=== PATIENT | male | born 1970 | race Caucasian/White ===

== ENCOUNTER → 2016-11-29 | Outpatient (CLI) | payer BC ==
[~2016-11-29] MED LIST: GLYB25TA PO; INVO300T PO; KLON2TAB PO; LEXA1TAB2 PO; OMEP40CA2 PO; PHEN15CA58 PO
--- NOTE | 2016-11-30 07:09 | REP ---
KUB, TWO VIEWS: HISTORY: Abdominal pain. COMPARISON: 09/30/2010 A small amount of air is present in small and large intestine. There are no air fluid levels or dilated loops of intestine. There is no pneumoperitoneum. A mild amount of stool is present in the colon. IMPRESSION: Nonspecific bowel gas pattern. Signed by Juan Luis Noble MD 11/30/2016 08:14 A
== END ==
LOC: M WUC 11:58
PROVIDERS: ATTEND Nurse Practitioner Family
DX: M54.9 Dorsalgia, unspecified (principal)

== ENCOUNTER 2016-12-20 08:35 | Inpatient (IN) | payer BC ==
[~2016-12-20] VITALS: Ht 170.2 cm; Wt 135.5 kg
[2016-12-20] MEDS: ENOXAPARIN 40 MG/0.4 ML SYRINGE (J1650) SC SCH (09:00)
--- NOTE | 2016-12-20 09:10 | REP ---
Clinical: Acute cerebrovascular accident . Comparison: 07/10/2015 . Findings: The mediastinum and cardiac silhouette are stable and within normal limits for portable technique. The lung chen are clear without acute consolidation, effusion, or pneumothorax. Chronic changes at the left base remain stable. Skeletal structures are intact. Impression: Stable portable chest x-ray. No acute cardiopulmonary process appreciated. Signed by Isael Valadez MD 12/20/2016 09:02 A
--- NOTE | 2016-12-20 09:15 | REP ---
Clinical: Acute cerebrovascular accident. Comparison: 07/10/2015. Findings: The ventricles, sulci, and cisterns are normal in position and appearance. Griggs-white differentiation is maintained. No acute intracranial hemorrhage, mass/mass effect, pathology or trauma/injury. No evidence for acute infarction. No extra-axial fluid collection. Calvarium is intact. Paranasal sinuses and mastoid air cells are clear. A small contusion overlying the left vertex. Impression: No evidence for acute intracranial pathology or trauma/injury. Signed by Isael Valadez MD 12/20/2016 09:07 A
[2016-12-20] MEDS ORDERED: ASPIRIN 325 MG TAB As Ordered ONE (09:28)
[2016-12-20] MEDS ORDERED: MORPHINE 4 MG/ML 1ML SYRINGE As Ordered ONE (09:28)
[2016-12-20 09:31] LABS: BASO # 0.1 K/mm3 (0.0-0.2); BASO % 0.9 % (0.0-1.0); EOS # 0.4 K/mm3 (0.0-0.50); EOS % 4.6 % (0.0-3.0); LARGE UNSTAINED CELL # 0.2 K/mm3 (0.0-0.4); LARGE UNSTAINED CELL % 1.5 % (0.0-4.0); LYMPH # 1.7 K/mm3 (1.5-4.5); LYMPH % 16.1 % (24.0-44.0); MEAN CORPUSCULAR HEMOGLOBIN 28.2 pg (27.0-33.0); MEAN CORPUSCULAR HGB CONC 33.1 g/dl (32.0-36.5); MEAN CORPUSCULAR VOLUME 85.1 fl (80.0-96.0); MONO # 0.6 K/mm3 (0.0-0.8); MONO % 6.1 % (0.0-5.0); NEUTROPHILS # 6.9 K/mm3 (1.8-7.7); NEUTROPHILS % 70.8 % (36.0-66.0); PLATELET COUNT, AUTOMATED 197 k/mm3 (150-450); RED CELL DISTRIBUTION WIDTH 14.3 % (11.5-14.5); WHITE BLOOD COUNT 9.8 K/mm3 (4.0-10.0)
[2016-12-20 09:35] LABS: ANION GAP 7 MEQ/L (8-16); BLOOD UREA NITROGEN 12 MG/DL (7-18); CALCIUM LEVEL 8.9 MG/DL (8.5-10.1); CARBON DIOXIDE LEVEL 30 MEQ/L (21-32); CHLORIDE LEVEL 101 MEQ/L (98-107); CREATININE FOR GFR 1.13 MG/DL (0.70-1.30); GLOMERULAR FILTRATION RATE > 60.0 (>60); GLUCOSE, FASTING 309 MG/DL (70-105); SODIUM LEVEL 138 MEQ/L (136-145)
[2016-12-20 09:44] LABS: INR 0.89
[2016-12-20] MEDS ORDERED: SENN8.6T10 PO (10:54)
[2016-12-20] MEDS ORDERED: LANTINJ4 SC (10:54)
[2016-12-20] MEDS ORDERED: TRAM50TA2 PO (10:54)
[2016-12-20] MEDS ORDERED: IBUP200C PO (10:54)
[2016-12-20] MEDS ORDERED: TEST200I14 IM (10:54)
[2016-12-20] MEDS ORDERED: VITMTA PO (10:54)
[2016-12-20] MEDS ORDERED: ALBU17IN INH (10:54)
[2016-12-20] MEDS ORDERED: GLYB5TA PO (10:54)
[2016-12-20] MEDS ORDERED: SENO8.6T2 PO (10:54)
[2016-12-20] MEDS ORDERED: NEXI40CA PO (10:54)
[2016-12-20] MEDS ORDERED: FERR325T3 PO (10:54)
[2016-12-20] MEDS ORDERED: GLUCTAB6 PO (11:00)
--- NOTE | 2016-12-20 11:25 | REP ---
MRA BRAIN WITHOUT CONTRAST: HISTORY: Infarction. 3D [id number] MR angiography was performed at the level of the [place] of [place]. There is no aneurysm, arteriovenous malformation or atherosclerotic lesion. Major intracranial vessels are patent. The vertebral arteries are equal in size. IMPRESSION: Normal MRA brain. Signed by Juan Luis Noble MD 12/20/2016 11:28 A
--- NOTE | 2016-12-20 11:27 | REP ---
MRI BRAIN WITHOUT CONTRAST: HISTORY: Infarction. Comparison CT 12/20/2016. There are no areas of abnormal signal intensity in the brain. There is no intraparenchymal hemorrhage, infarct, mass or midline shift. The ventricular system is normal in appearance. There is no extracerebral collection. The sinuses are clear. IMPRESSION: There is no intracranial lesion. Signed by Juan Luis Noble MD 12/20/2016 11:28 A
[2016-12-20] MEDS ORDERED: ONDANSETRON 4MG/2ML VIAL (J2405) IV PRN (13:00)
[2016-12-20] MEDS ORDERED: traMADol 50 MG TAB PO PRN (13:00)
[2016-12-20] MEDS ORDERED: SENNA 8.6 MG TAB (SENOKOT) PO PRN (13:00)
[2016-12-20] MEDS ORDERED: ALBUTEROL 90 MCG/ACT 8GM HFA INHALER INH PRN (13:00)
[2016-12-20] MEDS ORDERED: traMADol 50 MG TAB As Ordered ONE (14:38)
[2016-12-20 15:00] VITALS: BP 131/72
--- NOTE | 2016-12-20 15:01 | HPE ---
DATE OF ADMISSION: 12/20/2016 PRIMARY CARE PROVIDER: WILBERTO Polanco CHIEF COMPLAINT: Left sided headache with facial droop. HISTORY OF PRESENT ILLNESS: The patient is a 46-year-old man who does have a history of headaches, but over the last five days has had persistent left sided headache, but in the frontal area, it is right behind his eye. It has been constant in nature. Does not come and go. At times it can get so severe that it becomes a stabbing pain. He denies photophobia, neck stiffness, fevers, chills, chest pain, shortness of breath, nausea, vomiting, or diarrhea. He tells me that for one hour yesterday he felt as though the left side of his face, specifically the left side of his mouth became heavy and he was having trouble with eating, but it did resolve in one hour. However, this morning at approximately 8:00 a.m. it returned once again where he noticed food dripping out of the left side of his mouth and he noticed difficult speaking. He did have some numbness and tingling of the left side of his face as well. At the time of my exam in the emergency room, he tells me that the numbness and tingling is completely gone. His headache is down from an 8 or 9 down to 3 or 4. He tells me that he feels as though his difficulty with speech and weakness in the mouth have almost resolved, but it is not quite back to normal as of yet. PAST MEDICAL HISTORY: Asthma. Diabetes. Depression/mood disorder. Gastroesophageal reflux disease (GERD). Iron deficiency anemia. ALLERGIES: 1. CT CONTRAST DYE - he gets hives and throat closing. 2. NIACIN. 3. ERYTHROMYCIN. HOME MEDICATIONS: - glyburide 10 mg daily - Ventolin HFA two puffs every 4 hours as needed shortness of breath - Lexapro 20 mg daily - Nexium 40 mg daily - ferrous sulfate 325 mg by mouth twice a day - ibuprofen 200 mg every 8 hours as needed for pain - Lantus 30 units at bedtime - multivitamin one tablet daily - senna-lax 8.6 mg by mouth at bedtime as needed for constipation. - Senokot 8.6 mg one tablet daily - tramadol 50 mg every 6 hours as needed for pain FAMILY HISTORY: His father of numerous hemorrhagic strokes which he believes started in his 70s. Also had any myocardial infarction in his 70s. Otherwise, noncontributory. PAST SURGICAL HISTORY: None. SOCIAL HISTORY: The patient smokes a pipe occasionally, but denies daily tobacco use. He has not had a drink of alcohol in six months. 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 REVIEW OF SYSTEMS: Negative other than history of present illness. PHYSICAL EXAMINATION: Blood pressure 135/76, pulse 75, respiratory rate 18, temperature 97.1, oxygen saturation 94% on room air. GENERAL: He is a morbidly obese man laying flat in the stretcher. He does not appear to be in any acute distress whatsoever. HEENT: Face has a very subtle softening of the left nasal labial fold. He has moist mucous membranes. Tongue is midline. Cranial nerves III through XII appear to be fairly intact. Otherwise, there is some left lower facial nerve weakness with an asymmetric smile. No elevation of CVP, but difficult to assess secondary to his large neck. CARDIOVASCULAR EXAM: S1 and S2 regular. RESPIRATORY EXAM: Clear. ABDOMINAL EXAM: Obese. EXTREMITIES: No clubbing, cyanosis, or edema. LABORATORY STUDIES: WBC 9.8, hemoglobin 16.9, hematocrit 51.2, platelet count 197. Chemistry panel: Sodium 138, potassium 4.0, chloride 101, bicarb 30, BUN 12, creatinine 1.1. INR 0.9. IMAGING: The patient did have a CT scan of the head which revealed no evidence of intracranial pathology, no trauma or injury. He also had a chest x-ray that was a stable portable chest x-ray. No acute cardiopulmonary process appreciated. ASSESSMENT/PLAN: This is a 46-year-old man with dysarthria and left sided facial droop associated with a five day headache. PROBLEMS: 1. Left sided facial and dysarthria. My suspicion is more for an atypical migraine and less for an acute CVA. Will get MRI, MRA and carotid duplex. Given that the patient does have a headache, what I feel is more likely that this is an atypical migraine. I will start the patient on Excedrin in addition to his home pain medications. I have spoken with Dr. Mann of neurology and asked him to evaluate the patient as well. If his MRI is negative, I do not feel strongly about checking an echocardiogram or completing further potential CVA workup unless recommended by neurology. Dr. Mcdonough reportedly used telemedicine and spoke with the stroke attending at [facility], Dr. Sutherland who recommended no tPA, but did recommend the MRI/MRA and recommended aspirin. As such, the patient will be on aspirin. I will check a morning lipid panel. Should it be abnormal consider initiation of statin therapy. 2. Type 2 diabetes. The patient will be on sliding scale insulin in addition to his Lantus. He will have a consistent carbohydrate diet. We will hold his glyburide. 3. Depression/anger problems. The patient is to continue on his Lexapro. 4. Gastroesophageal reflux disease (GERD). The patient is on Nexium. 5. Iron deficiency anemia. The patient is on ferrous sulfate, appears to be relatively mild. 6. Asthma/chronic obstructive pulmonary disease (COPD). Will continue the patient on as needed albuterol. 7. Morbid obesity complicating care. 8. Tobacco use is minimal, but cessation and counseling offered. 9. Deep vein thrombosis (DVT) prophylaxis. The patient will be on Lovenox. DISPOSITION: The patient is admitted to the progressive care unit for telemetry and neuro checks. Dr. Aquino's service will continue to follow the patient tomorrow at 7:00 a.m.
[2016-12-20 16:00] VITALS: BP 128/70
[2016-12-20] MEDS: EXCEDRIN MIGRAINE TABLET PO PRN (16:59)
--- NOTE | 2016-12-20 18:17 | ECGEPIP ---
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
[2016-12-20] MEDS ORDERED: predniSONE 20 MG TAB As Ordered ONE (20:44)
[2016-12-20] MEDS: predniSONE 20 MG TAB PO SCH (20:46)
[2016-12-20 21:25] VITALS: BP 155/86
--- NOTE | 2016-12-20 21:25 | EDDOCDS ---
Physician Documentation [facility] Name: Petros Dickey Age: 46 yrs Sex: Male : 1970 Arrival Date: 12/20/2016 Time: 08:35 Bed 20 Private MD: Maurisio Arciniega NC Disposition: 12/20/16 10:07 Hospitalization ordered by Becky Peralta for Inpatient Admission. Preliminary diagnosis are Facial weakness, Speech disturbances, not elsewhere classified - Dysarthria. - Bed requested for PCU. - Status is Inpatient Admission. sls1 - Condition is Stable. - Problem is new. - Symptoms are unchanged. Historical: - Allergies: CT Dye; Niacin; Erythromycin; - Home Meds: 1. Albuterol Inhl 2 puffs prn 2. glyburide 10 mg Oral tab 1 tab once daily 3. Lexapro 20 mg Oral tab 1 tab once daily 4. Nexium 40 mg Oral cpDR 1 cap once daily 5. Testerone injection Q 10 days 6. Lantus 100 unit/mL Sub-Q soln 30 unit daily 7. glucosamine-chondroitin oral oral 2 tab daily - PMHx: Asthma; Diabetes - NIDDM: controlled; GERD; - PSHx: none; - Social history: Smoking status: Patient uses tobacco products, current some day smoker. No barriers to communication noted, The patient speaks fluent [place]ian, Speaks appropriately for age. - Family history: Not pertinent. - : The pt / caregiver states he / she is not on anticoagulants. Home medication list is obtained from the patient. - Exposure Risk Screening:: None identified. Vital Signs: 12/20 08:44 BP 150 / 87; Pulse 74; Resp 16; Pulse Ox 97% on R/A; Weight 136.08 kg / 300.01 lbs (R); mlb1 Height 5 ft. 7 in. (170.18 cm) (R); Pain 6/10; 08:51 Temp 97.1(O); jrd 09:17 BP 152 / 79 (auto/); js13 09:17 Pulse 78; Resp 16; Pulse Ox 95% on R/A; js13 09:32 BP 135 / 76 (auto/); js13 09:32 Pulse 75; Resp 18; Pulse Ox 94% on R/A; js13 10:40 BP 130 / 74 (auto/); js13 10:40 Pulse 83; Resp 16; Pulse Ox 95% on R/A; js13 10:45 BP 142 / 76 (auto/); js13 10:45 Pulse 77 MON; Resp 16; Pulse Ox 94% on R/A; js13 11:00 BP 140 / 75 (auto/); js13 11:00 Pulse 77 MON; Resp 16; Pulse Ox 95% on R/A; js13 11:15 BP 129 / 61 (auto/); js13 11:15 Pulse 81 MON; Resp 16; Pulse Ox 94% on R/A; js13 11:30 BP 114 / 64 (auto/); js13 11:30 Pulse 77 MON; Resp 16; Pulse Ox 94% on R/A; js13 11:45 BP 111 / 66 (auto/); js13 11:45 Pulse 77 MON; Resp 18; Pulse Ox 92% on R/A; js13 12:00 BP 121 / 70 (auto/); js13 12:00 Pulse 75 MON; Resp 16; Pulse Ox 93% on R/A; js13 12:15 BP 121 / 70 (auto/); js13 12:15 Pulse 73 MON; Resp 16; Pulse Ox 93% on R/A; js13 12:30 BP 131 / 74 (auto/); js13 12:30 Pulse 71 MON; Resp 16; Pulse Ox 94% on R/A; js13 12:45 BP 132 / 70 (auto/); js13 12:45 Pulse 72 MON; Resp 16; Pulse Ox 94% on R/A; js13 13:00 BP 137 / 76 (auto/); js13 13:00 Pulse 69 MON; Resp 16; Pulse Ox 93% on R/A; js13 13:15 BP 139 / 77 (auto/); js13 13:15 Pulse 78 MON; Resp 16; Pulse Ox 97% on R/A; js13 13:30 BP 123 / 55 (auto/); js13 13:30 Pulse 75 MON; Resp 16; Pulse Ox 94% on R/A; js13 13:45 BP 129 / 61 (auto/); js13 13:45 Pulse 79 MON; Resp 16; Pulse Ox 93% on R/A; js13 14:00 BP 129 / 59 (auto/); js13 14:00 Pulse 83 MON; Resp 16; Pulse Ox 94% on R/A; js13 14:15 BP 131 / 60 (auto/); js13 14:15 Pulse 82 MON; Resp 16; Pulse Ox 92% on R/A; js13 14:30 BP 126 / 60 (auto/); js13 14:30 Pulse 75 MON; Resp 16; Pulse Ox 93% on R/A; js13 14:45 BP 133 / 64 (auto/); js13 14:45 Pulse 78 MON; Resp 16; Pulse Ox 93% on R/A; js13 08:44 Body Mass Index 46.99 (136.08 kg, 170.18 cm) mlb1 MDM: 08:40 ECG WITH READING ER PHYS+CARDIAG ordered. EDMS 08:45 RN interventions must not delay CT ordered. br1 08:45 Heating Worker/Pulse Ox/q 15 min VS ordered. br1 08:45 IV Saline Lock ordered. br1 08:45 Neuro VS q 15 Minutes ordered. br1 08:45 Patient must be on CC stretcher and weighed via bed scale ordered. br1 08:45 Rhythm Strip to chart ordered. br1 08:45 Basic Metabolic Profile Ordered. EDMS 08:45 CBC with Diff Ordered. EDMS 08:45 Partial Thromboplastin Time Ordered. EDMS 08:45 Prothrombin Time Profile\E\INR Ordered. EDMS 08:46 Chest, 1 View Ordered. EDMS 08:46 Type & Screen Ordered. EDMS 08:46 CT Head Without Contrast Ordered. EDMS 08:55 Consult [facility]: Telemedicine Stroke Attending ordered. br1 08:59 Financial registration complete. lg 09:02 [facility] Payment Agreement was scanned into [employer] and attached to record. lg 09:03 Consult [facility]: Telemedicine Stroke Attending complete. lbd 09:25 MRI Screening Tool - Place on chart, inform RN ordered. br1 09:26 Aspirin 325 mg PO once ordered. br1 09:26 -MRA-Brain without contrast Ordered. EDMS 09:26 -MRI-Brain without Ordered. EDMS 09:26 BED REQUEST+ADM ordered. EDMS 09:28 morphine 4 mg IVP once ordered. br1 09:28 MRI Screening Tool - Place on chart, inform RN complete. lbd 10:31 Basic Metabolic Profile Reviewed. br1 10:31 CBC with Diff Reviewed. br1 10:31 Prothrombin Time Profile\E\INR Reviewed. br1 10:31 Partial Thromboplastin Time Reviewed. br1 10:31 Type & Screen Reviewed. br1 10:31 CT Head Without Contrast Reviewed. br1 10:31 Chest, 1 View Reviewed. br1 10:58 Admission / Observation Status ordered. EDMS 12:52 Duplex,carotid (complete) Ordered. EDMS 12:53 CONSISTENT CARBOHYDRATES ordered. EDMS 13:32 T-Sheet-- Draft Copy was scanned into [employer] and attached to record. klr 14:31 THYROID STIMULATING HORMONE Ordered. EDMS 14:36 HEMOGLOBIN A1C Ordered. EDMS 19:31 CARDIAC RISK PROFILE Ordered. EDMS 19:31 BASIC METABOLIC PROFILE Ordered. EDMS 19:31 COMPLETE BLOOD COUNT Ordered. EDMS Administered Medications: 09:34 Drug: Aspirin 325 mg [aspirin 325 mg tablet (1 tabs)] Route: PO; js13 09:34 Drug: morphine 4 mg [morphine 4 mg/mL intravenous cartridge (1 mL)] Route: IVP; Site: [facility] right antecubital; Signatures: Dispatcher [employer] EDMS Millicent Brock, Patent Leather Sorter Unit lbd Rosalba RITTER, Kathy RN Myron Sal, Reg Reg lg Suraj Gunn RN RN mlb1 Isacc Mcdonough MD MD br1 Viviana Hernandez RN RN sls1 Kendal Najera,RN RN js13 Debbie Verdugo The chart was reviewed and I authenticate all verbal orders and agree with the evaluation and treatment provided.Corrections: (The following items were deleted from the chart) 09:38 08:45 Accucheck ordered. br1 js13 14:32 14:17 THYROID STIMULATING HORMONE ordered. EDMS EDMS 14:32 14:17 HEMOGLOBIN A1C ordered. EDMS EDMS 14:33 14:31 HEMOGLOBIN A1C ordered. EDMS EDMS Attachments: 09:02 [facility] Payment Agreement lg 13:32 T-Sheet-- Draft Copy klr MTDD
--- NOTE | 2016-12-20 21:25 | EDDOCDS ---
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 The last date and time the patient was known to be well was was at 08:00 on December 20, 2016. An acute neurological deficit is present. The charge nurse has been notified. The patient has been moved to a treatment area. Pre-hospital glucose is not applicable to this patient. Adult Sepsis Screening: The patient does not have new or worsening altered mentation. Patient's respiratory rate is less than 22. Systolic blood pressure is greater than 100. Patient has a qSOFA score of 0- Negative Sepsis Screen. Suicide/Homicide risk assessment- the patient denies having any suicidal and/or homicidal ideations and does not present with any other emotional, behavioral or mental health complaints. Status: Patient is not a service coordinator elderly facility or dependent. Transition of care: patient was not received from another setting of care. 08:40 Acuity: SUSIE Level 2 mlb1 08:40 Method Of Arrival: Walkin/Carried/Asstd mlb1 Triage Assessment: 08:44 The onset of the patients symptoms was less than three hours ago. General: Appears mlb1 distressed, Behavior is cooperative. Pain: Location: head Pain currently is 6 out of 10 on a pain scale. Neurological: Level of Consciousness is awake, alert, Speech is slurred, Facial droop on left, Reports headache. Historical: - Allergies: CT Dye; Niacin; Erythromycin; - Home Meds: 1. Albuterol Inhl 2 puffs prn 2. glyburide 10 mg Oral tab 1 tab once daily 3. Lexapro 20 mg Oral tab 1 tab once daily 4. Nexium 40 mg Oral cpDR 1 cap once daily 5. Testerone injection Q 10 days 6. Lantus 100 unit/mL Sub-Q soln 30 unit daily 7. glucosamine-chondroitin oral oral 2 tab daily - PMHx: Asthma; Diabetes - NIDDM: controlled; GERD; - PSHx: none; - Social history: Smoking status: Patient uses tobacco products, current some day smoker. No barriers to communication noted, The patient speaks fluent Sinhala, Speaks appropriately for age. - Family history: Not pertinent. - : The pt / caregiver states he / she is not on anticoagulants. Home medication list is obtained from the patient. - Exposure Risk Screening:: None identified. Screenin:33 Screening information is obtained from the patient. Fall risk: No risks identified. js13 Assistance ADL's: requires no assistance with activities of daily living. Abuse/DV Screen: The patient / caregiver reports he/she is: not in a situation that causes fear, pain or injury. Nutritional screening: No deficits noted. Advance Directives: There is no active DNR order. home support is adequate. Assessment: 09:30 General: Appears in no apparent distress, Behavior is appropriate for age, cooperative. js13 Pain: Location: head. Neurological: Level of Consciousness is awake, alert, Oriented to person, place, time, Resp Therapist are equal bilaterally Moves all extremities. Speech is normal, Facial droop on left, Facial symmetry: tongue is midline, Pupils are PERRLA. Cardiovascular: Rhythm is sinus rhythm Chest pain is denied. Respiratory: Airway is patent Respiratory effort is even, unlabored, Respiratory pattern is regular, symmetrical, Breath sounds are clear. Derm: Skin is pink, warm & dry. 10:45 General: Appears in no apparent distress, comfortable, Behavior is appropriate for age, js13 cooperative. Neurological: Level of Consciousness is awake, alert, obeys commands, Oriented to person, place, time, Resp Therapist are equal bilaterally Moves all extremities. Speech is normal, Facial droop on left, Facial symmetry: tongue is midline, Pupils are PERRLA. Cardiovascular: Rhythm is sinus rhythm Chest pain is denied. Respiratory: Airway is patent Respiratory effort is even, unlabored, Respiratory pattern is regular, symmetrical. Derm: Skin is pink, warm & dry. 11:49 Adult Sepsis Screening: The patient does not have new or worsening altered mentation. js13 Patient's respiratory rate is less than 22. Systolic blood pressure is greater than 100. Patient has a qSOFA score of 0- Negative Sepsis Screen. General: Appears in no apparent distress, comfortable, Behavior is appropriate for age, cooperative. Pain: Location: head. Neurological: Level of Consciousness is awake, alert, obeys commands, Oriented to person, place, time, Resp Therapist are equal bilaterally Moves all extremities. Speech is normal, Facial symmetry: tongue is midline, Facial droop is lessening and sensation is returning to normal. Pupils are PERRLA. Cardiovascular: Rhythm is sinus rhythm Chest pain is denied. Respiratory: Airway is patent Respiratory effort is even, unlabored, Respiratory pattern is regular, symmetrical. Derm: Skin is pink, warm & dry. 12:36 General: Appears in no apparent distress, comfortable, Behavior is appropriate for age, js13 cooperative. Pain: Denies pain. Neurological: Level of Consciousness is awake, alert, obeys commands, Oriented to person, place, time, Resp Therapist are equal bilaterally Moves all extremities. Speech is normal, Facial symmetry appears normal, Facial symmetry: tongue is midline, Pupils are PERRLA. Respiratory: Airway is patent Respiratory effort is even, unlabored, Respiratory pattern is regular, symmetrical. Derm: Skin is pink, warm & dry. 13:38 General: Pt calls out stating that his headache is worse than previous and his lip is hs1 becoming numb again. Patient states pain is 8/10 stabbing over left eye in forehead and radiates into eye.. Neurological: Level of Consciousness is awake, alert, obeys commands, Oriented to person, place, time. Respiratory: Airway is patent Respiratory effort is even, unlabored, Respiratory pattern is regular, symmetrical. Derm: Skin is pink, warm & dry. normal. 14:23 Adult Sepsis Screening: The patient does not have new or worsening altered mentation. js13 Patient's respiratory rate is less than 22. Systolic blood pressure is greater than 100. Patient has a qSOFA score of 0- Negative Sepsis Screen. General: Appears in no apparent distress, comfortable, Behavior is appropriate for age, cooperative. Pain: Denies pain. Neurological: Level of Consciousness is awake, alert, obeys commands, Oriented to person, place, time, Resp Therapist are equal bilaterally Moves all extremities. Speech is normal, Facial symmetry appears normal, Facial symmetry: tongue is midline, Pupils are PERRLA. Cardiovascular: Rhythm is sinus rhythm Chest pain is denied. Respiratory: Airway is patent Respiratory effort is even, unlabored, Respiratory pattern is regular, symmetrical. Derm: Skin is pink, warm & dry. Vital Signs: 08:44 BP 150 / 87; Pulse 74; Resp 16; Pulse Ox 97% on R/A; Weight 136.08 kg (R); Height 5 ft. mlb1 7 in. (170.18 cm) (R); Pain 6/10; 08:51 Temp 97.1(O); jrd 09:17 BP 152 / 79 (auto/); js13 09:17 Pulse 78; Resp 16; Pulse Ox 95% on R/A; js13 09:32 BP 135 / 76 (auto/); js13 09:32 Pulse 75; Resp 18; Pulse Ox 94% on R/A; js13 10:40 BP 130 / 74 (auto/); js13 10:40 Pulse 83; Resp 16; Pulse Ox 95% on R/A; js13 10:45 BP 142 / 76 (auto/); js13 10:45 Pulse 77 MON; Resp 16; Pulse Ox 94% on R/A; js13 11:00 BP 140 / 75 (auto/); js13 11:00 Pulse 77 MON; Resp 16; Pulse Ox 95% on R/A; js13 11:15 BP 129 / 61 (auto/); js13 11:15 Pulse 81 MON; Resp 16; Pulse Ox 94% on R/A; js13 11:30 BP 114 / 64 (auto/); js13 11:30 Pulse 77 MON; Resp 16; Pulse Ox 94% on R/A; js13 11:45 BP 111 / 66 (auto/); js13 11:45 Pulse 77 MON; Resp 18; Pulse Ox 92% on R/A; js13 12:00 BP 121 / 70 (auto/); js13 12:00 Pulse 75 MON; Resp 16; Pulse Ox 93% on R/A; js13 12:15 BP 121 / 70 (auto/); js13 12:15 Pulse 73 MON; Resp 16; Pulse Ox 93% on R/A; js13 12:30 BP 131 / 74 (auto/); js13 12:30 Pulse 71 MON; Resp 16; Pulse Ox 94% on R/A; js13 12:45 BP 132 / 70 (auto/); js13 12:45 Pulse 72 MON; Resp 16; Pulse Ox 94% on R/A; js13 13:00 BP 137 / 76 (auto/); js13 13:00 Pulse 69 MON; Resp 16; Pulse Ox 93% on R/A; js13 13:15 BP 139 / 77 (auto/); js13 13:15 Pulse 78 MON; Resp 16; Pulse Ox 97% on R/A; js13 13:30 BP 123 / 55 (auto/); js13 13:30 Pulse 75 MON; Resp 16; Pulse Ox 94% on R/A; js13 13:45 BP 129 / 61 (auto/); js13 13:45 Pulse 79 MON; Resp 16; Pulse Ox 93% on R/A; js13 14:00 BP 129 / 59 (auto/); js13 14:00 Pulse 83 MON; Resp 16; Pulse Ox 94% on R/A; js13 14:15 BP 131 / 60 (auto/); js13 14:15 Pulse 82 MON; Resp 16; Pulse Ox 92% on R/A; js13 14:30 BP 126 / 60 (auto/); js13 14:30 Pulse 75 MON; Resp 16; Pulse Ox 93% on R/A; js13 14:45 BP 133 / 64 (auto/); js13 14:45 Pulse 78 MON; Resp 16; Pulse Ox 93% on R/A; js13 08:44 Body Mass Index 46.99 (136.08 kg, 170.18 cm) mlb1 ED Course: 08:36 Patient visited by Chris Pelayo. mm15 08:36 Maurisio Arciniega is Private Physician. mm15 08:36 Patient moved to Waiting mm15 08:38 Kendal Najera,MEET is Primary Nurse. mlb1 08:38 Patient moved to 2 mlb1 08:40 Patient visited by Suraj Gunn, MEET. mlb1 08:41 Triage Initiated mlb1 08:44 Kehinde Mcdonough MD is Attending Physician. br1 08:48 EKG done. (by ED staff). Reviewed by Kehnide Mcdonough MD. jrd 08:49 Patient visited by Suraj Gunn, RN. mlb1 08:51 Patient visited by Barry Martinez PCA. jrd 08:53 Patient visited by Kehinde Mcdonough MD. br1 08:59 Basic Metabolic Profile Sent. js13 08:59 CBC with Diff Sent. js13 08:59 Inserted saline lock: 18 gauge in right antecubital area and blood collected. The js13 patient tolerated the procedure well. by ginger DSOUZA. 09:00 Partial Thromboplastin Time Sent. js13 09:00 Prothrombin Time Profile\E\INR Sent. js13 09:00 Type & Screen Sent. js13 09:02 [facility] Payment Agreement was scanned into [employer] and attached to record. lg 09:32 No procedures done that require assistance. js13 09:33 Patient visited by Kendal Najera RN. js13 09:33 The patient / caregiver is instructed regarding the plan of care and ED course. Cardiac js13 monitor on. Pulse ox on. NIBP on. 09:33 Chest, 1 View Returned. EDMS 09:33 CT Head Without Contrast Returned. EDMS 09:34 Patient visited by Kendal Najera RN. js13 09:45 Patient moved to MRI js13 09:54 Becky Peralta rating specialist. nq 10:07 Becky Peralta is Hospitalizing Provider. br1 10:45 Patient moved to 2 js13 10:47 Patient visited by Kendal Najera RN. js13 11:29 -MRA-Brain without contrast Returned. EDMS 11:29 -MRI-Brain without Returned. EDMS 11:51 Patient visited by Kendal Najera RN. js13 12:36 Patient visited by Kendal Najera RN. js13 13:32 T-Sheet-- Draft Copy was scanned into [employer] and attached to record. klr 14:26 Patient visited by Kendal Najera RN. js13 14:51 Patient moved to 20 mcp 18:31 Patient moved to Ultrasound hgl 18:37 Patient moved to 20 hgl 19:02 EKG-ADULT Returned. EDMS 19:22 Primary Nurse role handed off by Kednal Najera RN kb5 20:08 Patient moved to Ultrasound br3 20:29 Patient moved to 20 br3 Administered Medications: 09:34 Drug: Aspirin 325 mg [aspirin 325 mg tablet (1 tabs)] Route: PO; js13 09:34 Drug: morphine 4 mg [morphine 4 mg/mL intravenous cartridge (1 mL)] Route: IVP; Site: [facility] right antecubital; Order Results: Lab Order: Basic Metabolic Profile; SPEC'M 15/17 08:56 Test: GLUCOSE, FASTING; Value: 309; Range: 70-105; Abnormal: Above high normal; Units: MG/DL; Status: F Test: BLOOD UREA NITROGEN; Value: 12; Range: 7-18; Units: MG/DL; Status: F Test: CREATININE FOR GFR; Value: 1.13; Range: 0.70-1.30; Units: MG/DL; Status: F Test: GLOMERULAR FILTRATION RATE; Value: > 60.0; Range: >60; Status: F Test: SODIUM LEVEL; Value: 138; Range: 136-145; Units: MEQ/L; Status: F Test: POTASSIUM SERUM; Value: 4.0; Range: 3.5-5.1; Units: MEQ/L; Status: F Test: CHLORIDE LEVEL; Value: 101; Range: 98-107; Units: MEQ/L; Status: F Test: CARBON DIOXIDE LEVEL; Value: 30; Range: 21-32; Units: MEQ/L; Status: F Test: ANION GAP; Value: 7; Range: 8-16; Abnormal: Below low normal; Units: MEQ/L; Status: F Test: CALCIUM LEVEL; Value: 8.9; Range: 8.5-10.1; Units: MG/DL; Status: F Test Note: ; Units are mL/min/1.73 m2 Chronic Kidney Disease Staging per NKF: Stage I & II GFR >=60 Normal to Mildly Decreased Stage III GFR 30-59 Moderately Decreased Stage IV GFR 15-29 Severely Decreased Stage V GFR <15 Very Little GFR Left ESRD GFR <15 on TRAFFIC WORKER Lab Order: CBC with Diff; SPEC'M 12/20/16 08:56 Test: WHITE BLOOD COUNT; Value: 9.8; Range: 4.0-10.0; Units: K/mm3; Status: F Test: RED BLOOD COUNT; Value: 6.02; Range: 4.30-6.10; Units: M/mm3; Status: F Test: HEMOGLOBIN; Value: 16.9; Range: 14.0-18.0; Units: g/dl; Status: F Test: HEMATOCRIT; Value: 51.2; Range: 42.0-52.0; Units: %; Status: F Test: MEAN CORPUSCULAR VOLUME; Value: 85.1; Range: 80.0-96.0; Units: fl; Status: F Test: MEAN CORPUSCULAR HEMOGLOBIN; Value: 28.2; Range: 27.0-33.0; Units: pg; Status: F Test: MEAN CORPUSCULAR HGB CONC; Value: 33.1; Range: 32.0-36.5; Units: g/dl; Status: F Test: RED CELL DISTRIBUTION WIDTH; Value: 14.3; Range: 11.5-14.5; Units: %; Status: F Test: PLATELET COUNT, AUTOMATED; Value: 197; Range: 150-450; Units: k/mm3; Status: F Test: NEUTROPHILS %; Value: 70.8; Range: 36.0-66.0; Abnormal: Above high normal; Units: %; Status: F Test: LYMPH %; Value: 16.1; Range: 24.0-44.0; Abnormal: Below low normal; Units: %; Status: F Test: MONO %; Value: 6.1; Range: 0.0-5.0; Abnormal: Above high normal; Units: %; Status: F Test: EOS %; Value: 4.6; Range: 0.0-3.0; Abnormal: Above high normal; Units: %; Status: F Test: BASO %; Value: 0.9; Range: 0.0-1.0; Units: %; Status: F Test: LARGE UNSTAINED CELL %; Value: 1.5; Range: 0.0-4.0; Units: %; Status: F Test: NEUTROPHILS #; Value: 6.9; Range: 1.8-7.7; Units: K/mm3; Status: F Test: LYMPH #; Value: 1.7; Range: 1.5-4.5; Units: K/mm3; Status: F Test: MONO #; Value: 0.6; Range: 0.0-0.8; Units: K/mm3; Status: F Test: EOS #; Value: 0.4; Range: 0.0-0.50; Units: K/mm3; Status: F Test: BASO #; Value: 0.1; Range: 0.0-0.2; Units: K/mm3; Status: F Test: LARGE UNSTAINED CELL #; Value: 0.2; Range: 0.0-0.4; Units: K/mm3; Status: F Lab Order: Partial Thromboplastin Time; 12/20/16 08:56 Test: PARTIAL THROMBOPLASTIN TIME; Value: 34.3; Range: 26.6-37.1; Units: SECONDS; Status: F Lab Order: Prothrombin Time Profile\E\INR; 12/20/16 08:56 Test: PROTHROMBIN TIME; Value: 12.2; Range: 12.3-14.5; Abnormal: Below low normal; Units: SECONDS; Status: F Test: INR; Value: 0.89; Status: F Test Note: ; THERAPUTIC HUMAN INR VALUES INDICATIONS NORMAL RANGES PROPHYLAXIS/TREATMENT OF: VENOUS THROMBOSIS 2.0-3.0 PULMONARY EMBOLISM 2.0-3.0 PREVENTION OF SYSTEMIC EMBOLISM FROM: TISSUE HEART VALVES 2.0-3.0 ACUTE MYOCARDIAL INFARCTION 2.0-3.0 VALVULAR HEART DISEASE 2.0-3.0 ATRIAL FIBRILLATION 2.0-3.0 MECHANICAL VALVES(HIGH RISK) 2.5-3.5 RECURRENT MYOCARDIAL INFARCTION 2.5-3.5 Lab Order: Type & Screen; 12/20/16 08:56 Test: BLOOD TYPE; Value: B NEG; Status: F Test: AB SCREEN (INDIRECT ALANNAH)VIS; Value: NEGATIVE; Status: F Lab Order: THYROID STIMULATING HORMONE; 12/20/16 08:56 Test: THYROID STIMULATING HORMONE; Value: 1.330; Range: 0.358-3.740; Units: uIU/ML; Status: F Lab Order: HEMOGLOBIN A1C; 12/20/16 08:56 Test: HEMOGLOBIN A1c; Value: 10.5; Range: 4.5-6.2; Abnormal: Above high normal; Units: %; Status: F Test: ESTIMATED AVERAGE GLUCOSE; Value: 255; Range: 60-110; Abnormal: Above high normal; Units: MG/DL; Status: F Radiology Order: EKG-ADULT Test: EKG-ADULT REASON FOR EXAMINATION: facial droop; Stationary ECG Study; [facility] - ED; ; Test Date: 2016-12-20; Pat Name: PETROS YEBOAH Department:; Room: -; Gender: M 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:; : 1970 Requested By: KEHINDE Kaur; Order Number: [id number] Reading MD: Sree Pena; Measurements; Intervals [place]; Rate: 69 P: 46; HI: 157 QRS: 78; QRSD: 122 T: 55; QT: 355; QTc: 382; Interpretive Statements; SINUS RHYTHM; MODERATE INTRAVENTRICULAR CONDUCTION DELAY; SIMILAR TO 07/10/15; Electronically Signed On 12-20-2016 18:17:24 EST by Sree Pena; Radiology Order: CT Head Without Contrast Test: CT Head Without Contrast REASON FOR EXAMINATION: CVA <4.5hrs; Clinical: Acute cerebrovascular accident.; ; Comparison: 07/10/2015.; ; Findings:; The ventricles, sulci, and cisterns are normal in position and appearance.; Griggs-white differentiation is maintained. No acute intracranial hemorrhage,; mass/mass effect, pathology or trauma/injury. No evidence for acute infarction.; No extra-axial fluid collection. Calvarium is intact. Paranasal sinuses and; mastoid air cells are clear. A small contusion overlying the left vertex.; ; Impression:; No evidence for acute intracranial pathology or trauma/injury.; ; ; Signed by; Isael Valadez MD 12/20/2016 09:07 A; Radiology Order: Chest, 1 View Test: Chest, 1 View REASON FOR EXAMINATION: CVA <4.5hrs; Clinical: Acute cerebrovascular accident .; ; Comparison: 07/10/2015 .; ; Findings:; The mediastinum and cardiac silhouette are stable and within normal limits for; portable technique. The lung chen are clear without acute consolidation,; effusion, or pneumothorax. Chronic changes at the left base remain stable.; Skeletal structures are intact.; ; Impression:; Stable portable chest x-ray. No acute cardiopulmonary process appreciated.; ; ; Signed by; Isael Valadez MD 12/20/2016 09:02 A; Radiology Order: -MRA-Brain without contrast Test: -MRA-Brain without contrast REASON FOR EXAMINATION: CVA <4.5hrs; MRA BRAIN WITHOUT CONTRAST:; ; HISTORY: Infarction.; ; 3D [id number] MR angiography was performed at the level of the [place] of; [place]. There is no aneurysm, arteriovenous malformation or atherosclerotic; lesion. Major intracranial vessels are patent. The vertebral arteries are equal; in size.; ; IMPRESSION:; ; Normal MRA brain.; ; ; Signed by; Juan Luis Noble MD 12/20/2016 11:28 A; Radiology Order: -MRI-Brain without Test: -MRI-Brain without REASON FOR EXAMINATION: CVA <4.5hrs; MRI BRAIN WITHOUT CONTRAST:; ; HISTORY: Infarction.; ; Comparison CT 12/20/2016.; ; There are no areas of abnormal signal intensity in the brain. There is no; intraparenchymal hemorrhage, infarct, mass or midline shift. The ventricular; system is normal in appearance. There is no extracerebral collection. The; sinuses are clear.; ; IMPRESSION:; ; There is no intracranial lesion.; ; ; Signed by; Juan Luis Noble MD 12/20/2016 11:28 A; Outcome: 10:07 Decision to Hospitalize by Provider. br1 21:24 Patient left the ED. sls1 Signatures: Dispatcher [employer] EDMS Lucia Allison, RN RN Myron Stark, Suraj Arteaga lg RN RN mlb1 Cristiano España, STUDENT ACCOUNTS COORDINATOR STUDENT ACCOUNTS COORDINATOR kb5 Kehinde Mcdonough MD MD br1 Stephanie Paez br3 Ginger Neal RN RN hs1 Viviana Hernandez RN RN sls1 Kendal Najera,RN RN js13 Victor Manuel Kwan Nazeel nq McGrath, Marlynn mm15 Barry Martniez, STUDENT ACCOUNTS COORDINATOR STUDENT ACCOUNTS COORDINATOR jrd Debbie Verdugo MTDD
[2016-12-20] MEDS: valACYclovir HCL 500 MG TAB PO SCH (22:17)
[2016-12-20] MEDS: FERROUS SULFATE 325MG TAB PO SCH (22:17)
[2016-12-20] MEDS: IBUPROFEN 800 MG TAB PO PRN (22:18)
[2016-12-20] MEDS: LEVEMIR (INSULIN DETEMIR) 1 UNITS/0.01ML SC SCH (22:25)
[2016-12-21] VITALS: BP 141/68
[2016-12-21] MEDS: EXCEDRIN MIGRAINE TABLET PO PRN (00:56)
[2016-12-21 04:00] VITALS: BP 123/61
[2016-12-21 06:17] LABS: MEAN CORPUSCULAR HGB CONC 32.5 g/dl (32.0-36.5); MEAN CORPUSCULAR VOLUME 86.1 fl (80.0-96.0); RED CELL DISTRIBUTION WIDTH 14.3 % (11.5-14.5); WHITE BLOOD COUNT 13.8 K/mm3 (4.0-10.0)
[2016-12-21 06:34] LABS: ANION GAP 10 MEQ/L (8-16); BLOOD UREA NITROGEN 17 MG/DL (7-18); CARBON DIOXIDE LEVEL 23 MEQ/L (21-32); CHLORIDE LEVEL 102 MEQ/L (98-107); CHOLESTEROL LEVEL 204 MG/DL (<200); CREATININE FOR GFR 1.07 MG/DL (0.70-1.30); GLOMERULAR FILTRATION RATE > 60.0 (>60); GLUCOSE, FASTING 341 MG/DL (70-105); POTASSIUM SERUM 4.5 MEQ/L (3.5-5.1); SODIUM LEVEL 135 MEQ/L (136-145); TRIGLYCERIDES LEVEL 322 MG/DL (<150)
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
[2016-12-21] MEDS ORDERED: GLUCAGON FOR INJ 1 MG VIAL (J1610) SC PRN (07:45)
[2016-12-21] MEDS ORDERED: GLUCOSE 4 GM CHEW TABLET PO PRN (07:45)
[2016-12-21] MEDS ORDERED: DEXTROSE 50% 50 ML SYRINGE IV PRN (07:45)
[2016-12-21 08:00] VITALS: BP 125/62
[2016-12-21] MEDS: HumaLOG INSULIN (NovoLOG) PER UNIT SC SCH ×3 (08:35→18:22)
[2016-12-21] MEDS: ENOXAPARIN 40 MG/0.4 ML SYRINGE (J1650) SC SCH (08:35)
[2016-12-21] MEDS: ESCITALOPRAM OXALATE 10 MG TAB (LEXAPRO) PO SCH (08:36)
[2016-12-21] MEDS: ASPIRIN 325 MG TAB PO SCH (08:36)
[2016-12-21] MEDS: PANTOPRAZOLE 40MG TAB (PROTONIX) PO SCH (08:36)
[2016-12-21] MEDS: SENOKOT S TAB PO SCH (08:36)
[2016-12-21] MEDS: FERROUS SULFATE 325MG TAB PO SCH ×2 (08:36→22:02)
[2016-12-21] MEDS: MULTIVITAMINS/MINERALS THERAP 1 TAB PO SCH (08:36)
[2016-12-21] MEDS: predniSONE 20 MG TAB PO SCH (08:37)
[2016-12-21] MEDS: valACYclovir HCL 500 MG TAB PO SCH ×2 (08:37→22:02)
--- NOTE | 2016-12-21 08:48 | REP ---
Clinical: Acute cerebrovascular accident. Technique: Griggs scale and color Doppler evaluation using linear high frequency transducer Findings: Two-dimensional griggs scale and color images demonstrate very minimal intimal thickening with otherwise normal arterial lumen and laminar flow. No areas of narrowing slash stenosis are appreciated. Color Doppler interrogation demonstrates normal arterial wave patterns and velocities with no significant spectral broadening. Normal flow direction is appreciated in the bilateral vertebral arteries. RIGHT (cm/s) LEFT (cm/s) ICA peak systolic velocity 63.6 59.6 ICA diastolic velocity 17.9 15.3 ECA peak systolic velocity 145.9 123.6 CCA peak systolic velocity 93.2 114.8 ICA/CCA ratio 0.68 0.52 Impression: No hemodynamically significant areas of narrowing or stenosis appreciated. Based on set standards narrowing falls within the normal range. Signed by Isael Valadez MD 12/21/2016 08:40 A
[2016-12-21 12:00] VITALS: BP 130/66
--- NOTE | 2016-12-21 14:44 | IPNPDOC ---
Date Seen The patient was seen on 12/21/16. Progress Note Hospitalist Progress Note Subjective: The patient states that he overall feels well Objective: Physical Exam: Vitals: Vital Sign - Last 24 Hours 12/20/16 12/20/16 12/20/16 12/21/16 15:00 16:00 21:25 00:00 Temp 97.8 97.7 96.8 95.3 Pulse 77 76 70 69 Resp 20 20 20 20 B/P 131/72 128/70 155/86 141/68 Pulse Ox 94 96 92 98 O2 Delivery Room Air Room Air Room Air NIPPV (BIPAP/CPAP) 12/21/16 12/21/16 12/21/16 04:00 08:00 12:00 Temp 95.1 95.6 96.0 Pulse 85 86 80 Resp 20 20 18 B/P 123/61 125/62 130/66 Pulse Ox 94 96 97 O2 Delivery NIPPV (BIPAP/CPAP) Room Air Room Air General: Awake, Alert, no acute distress HEENT: Atraumatic, left-sided facial droop CV: Regular rate and rhythm Lungs: Clear to auscultation bilaterally Abd: Soft, nontender, nondistended Extremities: No edema Neuro: Left facial droop, no deficits in any extremity Psych: Normal mood and affect Labs and Imaging: Laboratory Tests 12/21/16 05:34 Red Blood Count 6.16 H, Mean Corpuscular Volume 86.1, Mean Corpuscular Hemoglobin 28.0, Mean Corpuscular Hemoglobin Concent 32.5, Red Cell Distribution Width 14.3 Assessment and Plan: 46-year-old male with asthma, diabetes mellitus type 2, depression, GERD, iron deficiency anemia who presented with a left-sided headache as well as dysarthria and left facial droop. 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 1. Dysarthria and left facial droop: CT of the head, MRI/MRA of the brain, carotid ultrasound are all unremarkable. The patient has been seen by Dr. Mann of neurology, who suspects that this is a manifestation of Rodriguez's palsy, as well as intractable migraine headache with occipital neuralgia. Dr. Mann has started the patient on prednisone and valacyclovir. I spoken with Dr. Mann about potential discharge, but he would like the patient to complete the full CVA rule out workup. At this time, an echocardiogram is still pending. 2. Hyperlipidemia: In the course of a CVA workup, the patient was risk stratified with a fasting lipid panel, which does reveal significantly elevated cholesterol. We'll start the patient on a nightly statin. 3. Diabetes mellitus type 2: Sliding scale insulin while in-house. Currently holding home glyburide. Continue home Lantus 30 units daily at bedtime. 4. Asthma: The patient currently appears to be at his baseline. Continue as needed albuterol. 5. Pressure: Continue home Lexapro. 6. GERD: Continue home PPI. 7. Iron deficiency anemia: Continue home ferrous sulfate. Hemoglobin appears to be at baseline. 8. Leukocytosis: The patient's WBC was normal upon admission, but this morning it is 13.8. The patient is afebrile and clinically appears well. I suspect this is secondary to the prednisone that was started yesterday. We will monitor the patient closely. DVT prophylaxis: Lovenox Dispo: pending results of echocardiogram VS, I&O, 24H, [facility] Vital Signs/I&O Vital Signs Date Time Temp Pulse Resp B/P Pulse Ox O2 Delivery O2 Flow Rate FiO2 12/21/16 12:00 96.0 80 18 130/66 97 Room Air I&O- Last 24 Hours up to 6 AM 12/21/16 06:00 Intake Total 1600 ml Output Total 450 ml Balance 1150 ml Laboratory Data 24H LABS Laboratory Tests 2 12/20/16 22:24: Bedside Glucose (Misc Panel) 187H 12/21/16 05:34: Anion Gap 10, Calcium Level 9.0, Triglycerides Level 322H, Cholesterol Level 204H, HDL Cholesterol 23L, LDL Cholesterol 116.6H, Cholesterol/HDL Ratio 8.869H , Glomerular Filtration Rate > 60.0, Non-HDL Cholesterol (LDL + VLDL) 181 CBC/BMP Laboratory Tests 12/21/16 05:34 Red Blood Count 6.16 H, Mean Corpuscular Volume 86.1, Mean Corpuscular Hemoglobin 28.0, Mean Corpuscular Hemoglobin Concent 32.5, Red Cell Distribution Width 14.3 FARZAD VILLAVICENCIO Dec 21, 2016 14:44
[2016-12-21 16:00] VITALS: BP 138/77
[2016-12-21] MEDS: IBUPROFEN 800 MG TAB PO PRN (18:42)
[2016-12-21 20:00] VITALS: BP 160/74
--- NOTE | 2016-12-21 20:37 | ECHO ---
DATE OF PROCEDURE: 12/21/2016 AGE: 46 GENDER: Male HEIGHT: 67 inches WEIGHT: 302 pounds BODY SURFACE AREA: 2.41 m2 PATIENT LOCATION: Inpatient, PCU, room 3215 REFERRING PHYSICIAN: Colette Renteria MD INDICATIONS: Transient ischemic attack (TIA). 2-D MEASUREMENTS: RV: 2.4 cm LV: 4.2 cm Septum: 1.1 cm Posterior wall: 1.1 cm Aortic root: 3.2 cm LA: 3.6 cm LVEF: 65% DOPPLER MEASUREMENTS: AV: 1.5 m/s LVOT: 1.4 m/s LVOT diameter: 2.0 cm MV-E: 92, A: 66, EA ratio 1.4 Early mitral deceleration time: 148 ms PV: 0.8 m/s Pulmonary artery acceleration time: 137 ms RVSP: 26 mmHg IVC: 2.1 cm COMMENTS: Normal sinus rhythm without intraventricular conduction disturbance. Technically, extremely difficult study in light of the patient's body habitus, but diagnostically useful information was still obtained. Normal cardiac chamber sizes and left ventricle (LV) wall thickness. On real-time imaging from the parasternal and apical projections wall motion appeared to be symmetrical and hyperkinetic. Normal-appearing mitral valvular apparatus and leaflet excursion with no posterior systolic buckling. Three equal sized aortic cusps of normal thickness and cusp separation. Normal aortic root size. We are unable to detect any intracardiac mass, but as mentioned, this was a technically difficult study. No pericardial effusion. Color flow Doppler study taken from the parasternal and apical projection showed no aortic, trace mitral and trace tricuspid insufficiency (physiological findings). Guided continuous wave Doppler of his aortic valve showed a normal peak systolic velocity against LV outflow tract obstruction. Pulsed and continuous wave Doppler of his LV inflow tract taken from the apical four-chamber projection showed normal diastolic filling velocities against mitral stenosis. The filling pattern was also normal against LV diastolic dysfunction. Pulsed and continuous wave Doppler of his pulmonary trunk showed a normal peak systolic velocity against RV outflow tract obstruction. His pulmonary artery acceleration time was normal against an elevated pulmonary vascular resistance. Guided continuous wave Doppler of his tricuspid valve allowed our estimation of his right ventricular systolic pressure (upper limits of normal). His inferior vena cava was upper limits of normal with normal respiratory collapse against an elevated central venous pressure. CONCLUSIONS: Technically difficult study in light of the patient's body habitus. We could not detect an intracardiac mass. If cardiac source is seriously suspect we would recommend a transesophageal echocardiogram. Normal-appearing echocardiogram/Doppler study.
[2016-12-21] MEDS ORDERED: ATORVASTATIN 20 MG TAB PO SCH (21:00)
[2016-12-21] MEDS ORDERED: HumaLOG INSULIN (NovoLOG) PER UNIT SC SCH (21:00)
[2016-12-21] MEDS ORDERED: CALCIUM CARBONATE 500 MG CHEW U/D PO PRN (21:00)
[2016-12-21] MEDS: LEVEMIR (INSULIN DETEMIR) 1 UNITS/0.01ML SC SCH (22:03)
[2016-12-22] VITALS: BP 119/67
[2016-12-22 04:00] VITALS: BP 149/69
[2016-12-22 05:22] LABS: MEAN CORPUSCULAR HEMOGLOBIN 28.4 pg (27.0-33.0); MEAN CORPUSCULAR HGB CONC 33.4 g/dl (32.0-36.5); MEAN CORPUSCULAR VOLUME 84.8 fl (80.0-96.0); RED CELL DISTRIBUTION WIDTH 14.3 % (11.5-14.5); WHITE BLOOD COUNT 15.3 K/mm3 (4.0-10.0)
[2016-12-22 05:43] LABS: ANION GAP 11 MEQ/L (8-16); BLOOD UREA NITROGEN 21 MG/DL (7-18); CALCIUM LEVEL 9.1 MG/DL (8.5-10.1); CARBON DIOXIDE LEVEL 26 MEQ/L (21-32); CHLORIDE LEVEL 102 MEQ/L (98-107); GLOMERULAR FILTRATION RATE > 60.0 (>60); GLUCOSE, FASTING 268 MG/DL (70-105); POTASSIUM SERUM 3.6 MEQ/L (3.5-5.1); SODIUM LEVEL 139 MEQ/L (136-145)
[2016-12-22 08:00] VITALS: BP 115/59
[2016-12-22] MEDS: HumaLOG INSULIN (NovoLOG) PER UNIT SC SCH (08:23)
[2016-12-22] MEDS: valACYclovir HCL 500 MG TAB PO SCH (08:23)
[2016-12-22] MEDS: ESCITALOPRAM OXALATE 10 MG TAB (LEXAPRO) PO SCH (08:23)
[2016-12-22] MEDS: SENOKOT S TAB PO SCH (08:23)
[2016-12-22] MEDS: PANTOPRAZOLE 40MG TAB (PROTONIX) PO SCH (08:23)
[2016-12-22] MEDS: ASPIRIN 325 MG TAB PO SCH (08:23)
[2016-12-22] MEDS: MULTIVITAMINS/MINERALS THERAP 1 TAB PO SCH (08:23)
[2016-12-22] MEDS: FERROUS SULFATE 325MG TAB PO SCH (08:23)
[2016-12-22] MEDS: ENOXAPARIN 40 MG/0.4 ML SYRINGE (J1650) SC SCH (08:24)
[2016-12-22] MEDS ORDERED: PRED10TA FT (08:34)
[2016-12-22] MEDS ORDERED: ATOR1TAB21 PO (08:34)
[2016-12-22] MEDS ORDERED: VALA500T PO (08:34)
[2016-12-22] MEDS ORDERED: ASPI81TA85 PO (08:34)
[2016-12-22] MEDS ORDERED: predniSONE 50 MG TAB PO SCH (09:00)
--- NOTE | 2016-12-22 22:24 | EDDOCDS ---
Physician Documentation [facility] Name: Petros Dickey Age: 46 yrs Sex: Male : 1970 Arrival Date: 12/20/2016 Time: 08:35 Bed 20 Private MD: Maurisio Arciniega NC Disposition: 12/20/16 10:07 Hospitalization ordered by Becky Peralta for Inpatient Admission. Preliminary diagnosis are Facial weakness, Speech disturbances, not elsewhere classified - Dysarthria. - Bed requested for PCU. - Status is Inpatient Admission. sls1 - Condition is Stable. - Problem is new. - Symptoms are unchanged. Historical: - Allergies: CT Dye; Niacin; Erythromycin; - Home Meds: 1. Albuterol Inhl 2 puffs prn 2. glyburide 10 mg Oral tab 1 tab once daily 3. Lexapro 20 mg Oral tab 1 tab once daily 4. Nexium 40 mg Oral cpDR 1 cap once daily 5. Testerone injection Q 10 days 6. Lantus 100 unit/mL Sub-Q soln 30 unit daily 7. glucosamine-chondroitin oral oral 2 tab daily - PMHx: Asthma; Diabetes - NIDDM: controlled; GERD; - PSHx: none; - Social history: Smoking status: Patient uses tobacco products, current some day smoker. No barriers to communication noted, The patient speaks fluent [place], Speaks appropriately for age. - Family history: Not pertinent. - : The pt / caregiver states he / she is not on anticoagulants. Home medication list is obtained from the patient. - Exposure Risk Screening:: None identified. Vital Signs: 12/20 08:44 BP 150 / 87; Pulse 74; Resp 16; Pulse Ox 97% on R/A; Weight 136.08 kg / 300.01 lbs (R); mlb1 Height 5 ft. 7 in. (170.18 cm) (R); Pain 6/10; 08:51 Temp 97.1(O); jrd 09:17 BP 152 / 79 (auto/); js13 09:17 Pulse 78; Resp 16; Pulse Ox 95% on R/A; js13 09:32 BP 135 / 76 (auto/); js13 09:32 Pulse 75; Resp 18; Pulse Ox 94% on R/A; js13 10:40 BP 130 / 74 (auto/); js13 10:40 Pulse 83; Resp 16; Pulse Ox 95% on R/A; js13 10:45 BP 142 / 76 (auto/); js13 10:45 Pulse 77 MON; Resp 16; Pulse Ox 94% on R/A; js13 11:00 BP 140 / 75 (auto/); js13 11:00 Pulse 77 MON; Resp 16; Pulse Ox 95% on R/A; js13 11:15 BP 129 / 61 (auto/); js13 11:15 Pulse 81 MON; Resp 16; Pulse Ox 94% on R/A; js13 11:30 BP 114 / 64 (auto/); js13 11:30 Pulse 77 MON; Resp 16; Pulse Ox 94% on R/A; js13 11:45 BP 111 / 66 (auto/); js13 11:45 Pulse 77 MON; Resp 18; Pulse Ox 92% on R/A; js13 12:00 BP 121 / 70 (auto/); js13 12:00 Pulse 75 MON; Resp 16; Pulse Ox 93% on R/A; js13 12:15 BP 121 / 70 (auto/); js13 12:15 Pulse 73 MON; Resp 16; Pulse Ox 93% on R/A; js13 12:30 BP 131 / 74 (auto/); js13 12:30 Pulse 71 MON; Resp 16; Pulse Ox 94% on R/A; js13 12:45 BP 132 / 70 (auto/); js13 12:45 Pulse 72 MON; Resp 16; Pulse Ox 94% on R/A; js13 13:00 BP 137 / 76 (auto/); js13 13:00 Pulse 69 MON; Resp 16; Pulse Ox 93% on R/A; js13 13:15 BP 139 / 77 (auto/); js13 13:15 Pulse 78 MON; Resp 16; Pulse Ox 97% on R/A; js13 13:30 BP 123 / 55 (auto/); js13 13:30 Pulse 75 MON; Resp 16; Pulse Ox 94% on R/A; js13 13:45 BP 129 / 61 (auto/); js13 13:45 Pulse 79 MON; Resp 16; Pulse Ox 93% on R/A; js13 14:00 BP 129 / 59 (auto/); js13 14:00 Pulse 83 MON; Resp 16; Pulse Ox 94% on R/A; js13 14:15 BP 131 / 60 (auto/); js13 14:15 Pulse 82 MON; Resp 16; Pulse Ox 92% on R/A; js13 14:30 BP 126 / 60 (auto/); js13 14:30 Pulse 75 MON; Resp 16; Pulse Ox 93% on R/A; js13 14:45 BP 133 / 64 (auto/); js13 14:45 Pulse 78 MON; Resp 16; Pulse Ox 93% on R/A; js13 08:44 Body Mass Index 46.99 (136.08 kg, 170.18 cm) mlb1 MDM: 08:40 ECG WITH READING ER PHYS+CARDIAG ordered. EDMS 08:45 RN interventions must not delay CT ordered. br1 08:45 Racing Mechanic/Pulse Ox/q 15 min VS ordered. br1 08:45 IV Saline Lock ordered. br1 08:45 Neuro VS q 15 Minutes ordered. br1 08:45 Patient must be on CC stretcher and weighed via bed scale ordered. br1 08:45 Rhythm Strip to chart ordered. br1 08:45 Basic Metabolic Profile Ordered. EDMS 08:45 CBC with Diff Ordered. EDMS 08:45 Partial Thromboplastin Time Ordered. EDMS 08:45 Prothrombin Time Profile\E\INR Ordered. EDMS 08:46 Chest, 1 View Ordered. EDMS 08:46 Type & Screen Ordered. EDMS 08:46 CT Head Without Contrast Ordered. EDMS 08:55 Consult [facility]: Telemedicine Stroke Attending ordered. br1 08:59 Financial registration complete. lg 09:02 [facility] Payment Agreement was scanned into [employer] and attached to record. lg 09:03 Consult [facility]: Telemedicine Stroke Attending complete. lbd 09:25 MRI Screening Tool - Place on chart, inform RN ordered. br1 09:26 Aspirin 325 mg PO once ordered. br1 09:26 -MRA-Brain without contrast Ordered. EDMS 09:26 -MRI-Brain without Ordered. EDMS 09:26 BED REQUEST+ADM ordered. EDMS 09:28 morphine 4 mg IVP once ordered. br1 09:28 MRI Screening Tool - Place on chart, inform RN complete. lbd 10:31 Basic Metabolic Profile Reviewed. br1 10:31 CBC with Diff Reviewed. br1 10:31 Prothrombin Time Profile\E\INR Reviewed. br1 10:31 Partial Thromboplastin Time Reviewed. br1 10:31 Type & Screen Reviewed. br1 10:31 CT Head Without Contrast Reviewed. br1 10:31 Chest, 1 View Reviewed. br1 10:58 Admission / Observation Status ordered. EDMS 12:52 Duplex,carotid (complete) Ordered. EDMS 12:53 CONSISTENT CARBOHYDRATES ordered. EDMS 13:32 T-Sheet-- Draft Copy was scanned into [employer] and attached to record. klr 14:31 THYROID STIMULATING HORMONE Ordered. EDMS 14:36 HEMOGLOBIN A1C Ordered. EDMS 19:31 CARDIAC RISK PROFILE Ordered. EDMS 19:31 BASIC METABOLIC PROFILE Ordered. EDMS 19:31 COMPLETE BLOOD COUNT Ordered. EDMS Administered Medications: 09:34 Drug: Aspirin 325 mg [aspirin 325 mg tablet (1 tabs)] Route: PO; js13 09:34 Drug: morphine 4 mg [morphine 4 mg/mL intravenous cartridge (1 mL)] Route: IVP; Site: [facility] right antecubital; Signatures: Dispatcher [employer] EDMS Millicent Brock, [employer] Consultant Unit lbd Rosalba RITTER, Kathy RN Myron Sal, Reg Reg lg Suraj Gunn RN RN mlb1 Isacc Mcdonough MD MD br1 Viviana Hernandez RN RN sls1 Kendal Najera,RN RN js13 Debbie Verdugo The chart was reviewed and I authenticate all verbal orders and agree with the evaluation and treatment provided.Corrections: (The following items were deleted from the chart) 09:38 08:45 Accucheck ordered. br1 js13 14:32 14:17 THYROID STIMULATING HORMONE ordered. EDMS EDMS 14:32 14:17 HEMOGLOBIN A1C ordered. EDMS EDMS 14:33 14:31 HEMOGLOBIN A1C ordered. EDMS EDMS Attachments: 09:02 [facility] Payment Agreement lg 13:32 T-Sheet-- Draft Copy klr Chart Complete MTDD
--- NOTE | 2016-12-22 22:24 | EDDOCDS ---
Physician Documentation [facility] Name: Petros Dickey Age: 46 yrs Sex: Male : 1970 Arrival Date: 12/20/2016 Time: 08:35 Bed 20 Private MD: Maurisio Arciniega NC Disposition: 12/20/16 10:07 Hospitalization ordered by Becky Peralta for Inpatient Admission. Preliminary diagnosis are Facial weakness, Speech disturbances, not elsewhere classified - Dysarthria. - Bed requested for PCU. - Status is Inpatient Admission. sls1 - Condition is Stable. - Problem is new. - Symptoms are unchanged. Historical: - Allergies: CT Dye; Niacin; Erythromycin; - Home Meds: 1. Albuterol Inhl 2 puffs prn 2. glyburide 10 mg Oral tab 1 tab once daily 3. Lexapro 20 mg Oral tab 1 tab once daily 4. Nexium 40 mg Oral cpDR 1 cap once daily 5. Testerone injection Q 10 days 6. Lantus 100 unit/mL Sub-Q soln 30 unit daily 7. glucosamine-chondroitin oral oral 2 tab daily - PMHx: Asthma; Diabetes - NIDDM: controlled; GERD; - PSHx: none; - Social history: Smoking status: Patient uses tobacco products, current some day smoker. No barriers to communication noted, The patient speaks fluent [place]ar[place], Speaks appropriately for age. - Family history: Not pertinent. - : The pt / caregiver states he / she is not on anticoagulants. Home medication list is obtained from the patient. - Exposure Risk Screening:: None identified. Vital Signs: 12/20 08:44 BP 150 / 87; Pulse 74; Resp 16; Pulse Ox 97% on R/A; Weight 136.08 kg / 300.01 lbs (R); mlb1 Height 5 ft. 7 in. (170.18 cm) (R); Pain 6/10; 08:51 Temp 97.1(O); jrd 09:17 BP 152 / 79 (auto/); js13 09:17 Pulse 78; Resp 16; Pulse Ox 95% on R/A; js13 09:32 BP 135 / 76 (auto/); js13 09:32 Pulse 75; Resp 18; Pulse Ox 94% on R/A; js13 10:40 BP 130 / 74 (auto/); js13 10:40 Pulse 83; Resp 16; Pulse Ox 95% on R/A; js13 10:45 BP 142 / 76 (auto/); js13 10:45 Pulse 77 MON; Resp 16; Pulse Ox 94% on R/A; js13 11:00 BP 140 / 75 (auto/); js13 11:00 Pulse 77 MON; Resp 16; Pulse Ox 95% on R/A; js13 11:15 BP 129 / 61 (auto/); js13 11:15 Pulse 81 MON; Resp 16; Pulse Ox 94% on R/A; js13 11:30 BP 114 / 64 (auto/); js13 11:30 Pulse 77 MON; Resp 16; Pulse Ox 94% on R/A; js13 11:45 BP 111 / 66 (auto/); js13 11:45 Pulse 77 MON; Resp 18; Pulse Ox 92% on R/A; js13 12:00 BP 121 / 70 (auto/); js13 12:00 Pulse 75 MON; Resp 16; Pulse Ox 93% on R/A; js13 12:15 BP 121 / 70 (auto/); js13 12:15 Pulse 73 MON; Resp 16; Pulse Ox 93% on R/A; js13 12:30 BP 131 / 74 (auto/); js13 12:30 Pulse 71 MON; Resp 16; Pulse Ox 94% on R/A; js13 12:45 BP 132 / 70 (auto/); js13 12:45 Pulse 72 MON; Resp 16; Pulse Ox 94% on R/A; js13 13:00 BP 137 / 76 (auto/); js13 13:00 Pulse 69 MON; Resp 16; Pulse Ox 93% on R/A; js13 13:15 BP 139 / 77 (auto/); js13 13:15 Pulse 78 MON; Resp 16; Pulse Ox 97% on R/A; js13 13:30 BP 123 / 55 (auto/); js13 13:30 Pulse 75 MON; Resp 16; Pulse Ox 94% on R/A; js13 13:45 BP 129 / 61 (auto/); js13 13:45 Pulse 79 MON; Resp 16; Pulse Ox 93% on R/A; js13 14:00 BP 129 / 59 (auto/); js13 14:00 Pulse 83 MON; Resp 16; Pulse Ox 94% on R/A; js13 14:15 BP 131 / 60 (auto/); js13 14:15 Pulse 82 MON; Resp 16; Pulse Ox 92% on R/A; js13 14:30 BP 126 / 60 (auto/); js13 14:30 Pulse 75 MON; Resp 16; Pulse Ox 93% on R/A; js13 14:45 BP 133 / 64 (auto/); js13 14:45 Pulse 78 MON; Resp 16; Pulse Ox 93% on R/A; js13 08:44 Body Mass Index 46.99 (136.08 kg, 170.18 cm) mlb1 MDM: 08:40 ECG WITH READING ER PHYS+CARDIAG ordered. EDMS 08:45 RN interventions must not delay CT ordered. br1 08:45 General Office Clerk/Pulse Ox/q 15 min VS ordered. br1 08:45 IV Saline Lock ordered. br1 08:45 Neuro VS q 15 Minutes ordered. br1 08:45 Patient must be on CC stretcher and weighed via bed scale ordered. br1 08:45 Rhythm Strip to chart ordered. br1 08:45 Basic Metabolic Profile Ordered. EDMS 08:45 CBC with Diff Ordered. EDMS 08:45 Partial Thromboplastin Time Ordered. EDMS 08:45 Prothrombin Time Profile\E\INR Ordered. EDMS 08:46 Chest, 1 View Ordered. EDMS 08:46 Type & Screen Ordered. EDMS 08:46 CT Head Without Contrast Ordered. EDMS 08:55 Consult [facility]: Telemedicine Stroke Attending ordered. br1 08:59 Financial registration complete. lg 09:02 [facility] [place] was scanned into [employer] and attached to record. lg 09:03 Consult [facility]: Telemedicine Stroke Attending complete. lbd 09:25 MRI Screening Tool - Place on chart, inform RN ordered. br1 09:26 Aspirin 325 mg PO once ordered. br1 09:26 -MRA-Brain without contrast Ordered. EDMS 09:26 -MRI-Brain without Ordered. EDMS 09:26 BED REQUEST+ADM ordered. EDMS 09:28 morphine 4 mg IVP once ordered. br1 09:28 MRI Screening Tool - Place on chart, inform RN complete. lbd 10:31 Basic Metabolic Profile Reviewed. br1 10:31 CBC with Diff Reviewed. br1 10:31 Prothrombin Time Profile\E\INR Reviewed. br1 10:31 Partial Thromboplastin Time Reviewed. br1 10:31 Type & Screen Reviewed. br1 10:31 CT Head Without Contrast Reviewed. br1 10:31 Chest, 1 View Reviewed. br1 10:58 Admission / Observation Status ordered. EDMS 12:52 Duplex,carotid (complete) Ordered. EDMS 12:53 CONSISTENT CARBOHYDRATES ordered. EDMS 13:32 T-Sheet-- Draft Copy was scanned into [employer] and attached to record. klr 14:31 THYROID STIMULATING HORMONE Ordered. EDMS 14:36 HEMOGLOBIN A1C Ordered. EDMS 19:31 CARDIAC RISK PROFILE Ordered. EDMS 19:31 BASIC METABOLIC PROFILE Ordered. EDMS 19:31 COMPLETE BLOOD COUNT Ordered. EDMS Administered Medications: 09:34 Drug: Aspirin 325 mg [aspirin 325 mg tablet (1 tabs)] Route: PO; js13 09:34 Drug: morphine 4 mg [morphine 4 mg/mL intravenous cartridge (1 mL)] Route: IVP; Site: [facility] right antecubital; Signatures: Dispatcher [employer] EDMS Millicent Brock, Kosher Sealer Unit lbd Rosalba RITTER, Kathy RN Myron Sal, Reg Reg lg Suraj Gunn RN RN mlb1 Isacc Mcdonough MD MD br1 Viviana Hernandez RN RN sls1 Kendal Najera,RN RN js13 Debbie Verdugo The chart was reviewed and I authenticate all verbal orders and agree with the evaluation and treatment provided.Corrections: (The following items were deleted from the chart) 09:38 08:45 Accucheck ordered. br1 js13 14:32 14:17 THYROID STIMULATING HORMONE ordered. EDMS EDMS 14:32 14:17 HEMOGLOBIN A1C ordered. EDMS EDMS 14:33 14:31 HEMOGLOBIN A1C ordered. EDMS EDMS Attachments: 09:02 [facility] [place] Agreement lg 13:32 T-Sheet-- Draft Copy klr Chart Complete MTDD
--- NOTE | 2016-12-22 22:25 | EDDOCDS ---
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 The last date and time the patient was known to be well was was at 08:00 on December 20, 2016. An acute neurological deficit is present. The charge nurse has been notified. The patient has been moved to a treatment area. Pre-hospital glucose is not applicable to this patient. Adult Sepsis Screening: The patient does not have new or worsening altered mentation. Patient's respiratory rate is less than 22. Systolic blood pressure is greater than 100. Patient has a qSOFA score of 0- Negative Sepsis Screen. Suicide/Homicide risk assessment- the patient denies having any suicidal and/or homicidal ideations and does not present with any other emotional, behavioral or mental health complaints. Status: Patient is not a account service representative or dependent. Transition of care: patient was not received from another setting of care. 08:40 Acuity: SUSIE Level 2 mlb1 08:40 Method Of Arrival: Walkin/Carried/Asstd mlb1 Triage Assessment: 08:44 The onset of the patients symptoms was less than three hours ago. General: Appears mlb1 distressed, Behavior is cooperative. Pain: Location: head Pain currently is 6 out of 10 on a pain scale. Neurological: Level of Consciousness is awake, alert, Speech is slurred, Facial droop on left, Reports headache. Historical: - Allergies: CT Dye; Niacin; Erythromycin; - Home Meds: 1. Albuterol Inhl 2 puffs prn 2. glyburide 10 mg Oral tab 1 tab once daily 3. Lexapro 20 mg Oral tab 1 tab once daily 4. Nexium 40 mg Oral cpDR 1 cap once daily 5. Testerone injection Q 10 days 6. Lantus 100 unit/mL Sub-Q soln 30 unit daily 7. glucosamine-chondroitin oral oral 2 tab daily - PMHx: Asthma; Diabetes - NIDDM: controlled; GERD; - PSHx: none; - Social history: Smoking status: Patient uses tobacco products, current some day smoker. No barriers to communication noted, The patient speaks fluent Thai, Speaks appropriately for age. - Family history: Not pertinent. - : The pt / caregiver states he / she is not on anticoagulants. Home medication list is obtained from the patient. - Exposure Risk Screening:: None identified. Screenin:33 Screening information is obtained from the patient. Fall risk: No risks identified. js13 Assistance ADL's: requires no assistance with activities of daily living. Abuse/DV Screen: The patient / caregiver reports he/she is: not in a situation that causes fear, pain or injury. Nutritional screening: No deficits noted. Advance Directives: There is no active DNR order. home support is adequate. Assessment: 09:30 General: Appears in no apparent distress, Behavior is appropriate for age, cooperative. js13 Pain: Location: head. Neurological: Level of Consciousness is awake, alert, Oriented to person, place, time, Marketing Instructor are equal bilaterally Moves all extremities. Speech is normal, Facial droop on left, Facial symmetry: tongue is midline, Pupils are PERRLA. Cardiovascular: Rhythm is sinus rhythm Chest pain is denied. Respiratory: Airway is patent Respiratory effort is even, unlabored, Respiratory pattern is regular, symmetrical, Breath sounds are clear. Derm: Skin is pink, warm & dry. 10:45 General: Appears in no apparent distress, comfortable, Behavior is appropriate for age, js13 cooperative. Neurological: Level of Consciousness is awake, alert, obeys commands, Oriented to person, place, time, Marketing Instructor are equal bilaterally Moves all extremities. Speech is normal, Facial droop on left, Facial symmetry: tongue is midline, Pupils are PERRLA. Cardiovascular: Rhythm is sinus rhythm Chest pain is denied. Respiratory: Airway is patent Respiratory effort is even, unlabored, Respiratory pattern is regular, symmetrical. Derm: Skin is pink, warm & dry. 11:49 Adult Sepsis Screening: The patient does not have new or worsening altered mentation. js13 Patient's respiratory rate is less than 22. Systolic blood pressure is greater than 100. Patient has a qSOFA score of 0- Negative Sepsis Screen. General: Appears in no apparent distress, comfortable, Behavior is appropriate for age, cooperative. Pain: Location: head. Neurological: Level of Consciousness is awake, alert, obeys commands, Oriented to person, place, time, Marketing Instructor are equal bilaterally Moves all extremities. Speech is normal, Facial symmetry: tongue is midline, Facial droop is lessening and sensation is returning to normal. Pupils are PERRLA. Cardiovascular: Rhythm is sinus rhythm Chest pain is denied. Respiratory: Airway is patent Respiratory effort is even, unlabored, Respiratory pattern is regular, symmetrical. Derm: Skin is pink, warm & dry. 12:36 General: Appears in no apparent distress, comfortable, Behavior is appropriate for age, js13 cooperative. Pain: Denies pain. Neurological: Level of Consciousness is awake, alert, obeys commands, Oriented to person, place, time, Marketing Instructor are equal bilaterally Moves all extremities. Speech is normal, Facial symmetry appears normal, Facial symmetry: tongue is midline, Pupils are PERRLA. Respiratory: Airway is patent Respiratory effort is even, unlabored, Respiratory pattern is regular, symmetrical. Derm: Skin is pink, warm & dry. 13:38 General: Pt calls out stating that his headache is worse than previous and his lip is hs1 becoming numb again. Patient states pain is 8/10 stabbing over left eye in forehead and radiates into eye.. Neurological: Level of Consciousness is awake, alert, obeys commands, Oriented to person, place, time. Respiratory: Airway is patent Respiratory effort is even, unlabored, Respiratory pattern is regular, symmetrical. Derm: Skin is pink, warm & dry. normal. 14:23 Adult Sepsis Screening: The patient does not have new or worsening altered mentation. js13 Patient's respiratory rate is less than 22. Systolic blood pressure is greater than 100. Patient has a qSOFA score of 0- Negative Sepsis Screen. General: Appears in no apparent distress, comfortable, Behavior is appropriate for age, cooperative. Pain: Denies pain. Neurological: Level of Consciousness is awake, alert, obeys commands, Oriented to person, place, time, Marketing Instructor are equal bilaterally Moves all extremities. Speech is normal, Facial symmetry appears normal, Facial symmetry: tongue is midline, Pupils are PERRLA. Cardiovascular: Rhythm is sinus rhythm Chest pain is denied. Respiratory: Airway is patent Respiratory effort is even, unlabored, Respiratory pattern is regular, symmetrical. Derm: Skin is pink, warm & dry. Vital Signs: 08:44 BP 150 / 87; Pulse 74; Resp 16; Pulse Ox 97% on R/A; Weight 136.08 kg (R); Height 5 ft. mlb1 7 in. (170.18 cm) (R); Pain 6/10; 08:51 Temp 97.1(O); jrd 09:17 BP 152 / 79 (auto/); js13 09:17 Pulse 78; Resp 16; Pulse Ox 95% on R/A; js13 09:32 BP 135 / 76 (auto/); js13 09:32 Pulse 75; Resp 18; Pulse Ox 94% on R/A; js13 10:40 BP 130 / 74 (auto/); js13 10:40 Pulse 83; Resp 16; Pulse Ox 95% on R/A; js13 10:45 BP 142 / 76 (auto/); js13 10:45 Pulse 77 MON; Resp 16; Pulse Ox 94% on R/A; js13 11:00 BP 140 / 75 (auto/); js13 11:00 Pulse 77 MON; Resp 16; Pulse Ox 95% on R/A; js13 11:15 BP 129 / 61 (auto/); js13 11:15 Pulse 81 MON; Resp 16; Pulse Ox 94% on R/A; js13 11:30 BP 114 / 64 (auto/); js13 11:30 Pulse 77 MON; Resp 16; Pulse Ox 94% on R/A; js13 11:45 BP 111 / 66 (auto/); js13 11:45 Pulse 77 MON; Resp 18; Pulse Ox 92% on R/A; js13 12:00 BP 121 / 70 (auto/); js13 12:00 Pulse 75 MON; Resp 16; Pulse Ox 93% on R/A; js13 12:15 BP 121 / 70 (auto/); js13 12:15 Pulse 73 MON; Resp 16; Pulse Ox 93% on R/A; js13 12:30 BP 131 / 74 (auto/); js13 12:30 Pulse 71 MON; Resp 16; Pulse Ox 94% on R/A; js13 12:45 BP 132 / 70 (auto/); js13 12:45 Pulse 72 MON; Resp 16; Pulse Ox 94% on R/A; js13 13:00 BP 137 / 76 (auto/); js13 13:00 Pulse 69 MON; Resp 16; Pulse Ox 93% on R/A; js13 13:15 BP 139 / 77 (auto/); js13 13:15 Pulse 78 MON; Resp 16; Pulse Ox 97% on R/A; js13 13:30 BP 123 / 55 (auto/); js13 13:30 Pulse 75 MON; Resp 16; Pulse Ox 94% on R/A; js13 13:45 BP 129 / 61 (auto/); js13 13:45 Pulse 79 MON; Resp 16; Pulse Ox 93% on R/A; js13 14:00 BP 129 / 59 (auto/); js13 14:00 Pulse 83 MON; Resp 16; Pulse Ox 94% on R/A; js13 14:15 BP 131 / 60 (auto/); js13 14:15 Pulse 82 MON; Resp 16; Pulse Ox 92% on R/A; js13 14:30 BP 126 / 60 (auto/); js13 14:30 Pulse 75 MON; Resp 16; Pulse Ox 93% on R/A; js13 14:45 BP 133 / 64 (auto/); js13 14:45 Pulse 78 MON; Resp 16; Pulse Ox 93% on R/A; js13 08:44 Body Mass Index 46.99 (136.08 kg, 170.18 cm) mlb1 ED Course: 08:36 Patient visited by Chris Pelayo. mm15 08:36 Maurisio Arciniega is Private Physician. mm15 08:36 Patient moved to Waiting mm15 08:38 Kendal Najera,MEET is Primary Nurse. mlb1 08:38 Patient moved to 2 mlb1 08:40 Patient visited by Suraj Gunn, MEET. mlb1 08:41 Triage Initiated mlb1 08:44 Kehinde Mcdonough MD is Attending Physician. br1 08:48 EKG done. (by ED staff). Reviewed by Kehinde Mcdonough MD. jrd 08:49 Patient visited by Suraj Gunn, RN. mlb1 08:51 Patient visited by Barry Martinez PCA. jrd 08:53 Patient visited by Kehinde Mcdonough MD. br1 08:59 Basic Metabolic Profile Sent. js13 08:59 CBC with Diff Sent. js13 08:59 Inserted saline lock: 18 gauge in right antecubital area and blood collected. The js13 patient tolerated the procedure well. by ginger DSOUZA. 09:00 Partial Thromboplastin Time Sent. js13 09:00 Prothrombin Time Profile\E\INR Sent. js13 09:00 Type & Screen Sent. js13 09:02 [facility] Payment Agreement was scanned into [employer] and attached to record. lg 09:32 No procedures done that require assistance. js13 09:33 Patient visited by Kendal Najera RN. js13 09:33 The patient / caregiver is instructed regarding the plan of care and ED course. Cardiac js13 monitor on. Pulse ox on. NIBP on. 09:33 Chest, 1 View Returned. EDMS 09:33 CT Head Without Contrast Returned. EDMS 09:34 Patient visited by Kendal Najera RN. js13 09:45 Patient moved to MRI js13 09:54 Becky Peralta mixologist. nq 10:07 Becky Peralta is Hospitalizing Provider. br1 10:45 Patient moved to 2 js13 10:47 Patient visited by Kendal Najera RN. js13 11:29 -MRA-Brain without contrast Returned. EDMS 11:29 -MRI-Brain without Returned. EDMS 11:51 Patient visited by Kendal Najera RN. js13 12:36 Patient visited by Kendal Najera RN. js13 13:32 T-Sheet-- Draft Copy was scanned into [employer] and attached to record. klr 14:26 Patient visited by Kendal Najera RN. js13 14:51 Patient moved to 20 mcp 18:31 Patient moved to Ultrasound hgl 18:37 Patient moved to 20 hgl 19:02 EKG-ADULT Returned. EDMS 19:22 Primary Nurse role handed off by Kendal Najera RN kb5 20:08 Patient moved to Ultrasound br3 20:29 Patient moved to 20 br3 Administered Medications: 09:34 Drug: Aspirin 325 mg [aspirin 325 mg tablet (1 tabs)] Route: PO; js13 09:34 Drug: morphine 4 mg [morphine 4 mg/mL intravenous cartridge (1 mL)] Route: IVP; Site: [facility] right antecubital; Order Results: Lab Order: Basic Metabolic Profile; SPEC'M 15/17 08:56 Test: GLUCOSE, FASTING; Value: 309; Range: 70-105; Abnormal: Above high normal; Units: MG/DL; Status: F Test: BLOOD UREA NITROGEN; Value: 12; Range: 7-18; Units: MG/DL; Status: F Test: CREATININE FOR GFR; Value: 1.13; Range: 0.70-1.30; Units: MG/DL; Status: F Test: GLOMERULAR FILTRATION RATE; Value: > 60.0; Range: >60; Status: F Test: SODIUM LEVEL; Value: 138; Range: 136-145; Units: MEQ/L; Status: F Test: POTASSIUM SERUM; Value: 4.0; Range: 3.5-5.1; Units: MEQ/L; Status: F Test: CHLORIDE LEVEL; Value: 101; Range: 98-107; Units: MEQ/L; Status: F Test: CARBON DIOXIDE LEVEL; Value: 30; Range: 21-32; Units: MEQ/L; Status: F Test: ANION GAP; Value: 7; Range: 8-16; Abnormal: Below low normal; Units: MEQ/L; Status: F Test: CALCIUM LEVEL; Value: 8.9; Range: 8.5-10.1; Units: MG/DL; Status: F Test Note: ; Units are mL/min/1.73 m2 Chronic Kidney Disease Staging per NKF: Stage I & II GFR >=60 Normal to Mildly Decreased Stage III GFR 30-59 Moderately Decreased Stage IV GFR 15-29 Severely Decreased Stage V GFR <15 Very Little GFR Left ESRD GFR <15 on [facility] Lab Order: CBC with Diff; SPEC'M 12/20/16 08:56 Test: WHITE BLOOD COUNT; Value: 9.8; Range: 4.0-10.0; Units: K/mm3; Status: F Test: RED BLOOD COUNT; Value: 6.02; Range: 4.30-6.10; Units: M/mm3; Status: F Test: HEMOGLOBIN; Value: 16.9; Range: 14.0-18.0; Units: g/dl; Status: F Test: HEMATOCRIT; Value: 51.2; Range: 42.0-52.0; Units: %; Status: F Test: MEAN CORPUSCULAR VOLUME; Value: 85.1; Range: 80.0-96.0; Units: fl; Status: F Test: MEAN CORPUSCULAR HEMOGLOBIN; Value: 28.2; Range: 27.0-33.0; Units: pg; Status: F Test: MEAN CORPUSCULAR HGB CONC; Value: 33.1; Range: 32.0-36.5; Units: g/dl; Status: F Test: RED CELL DISTRIBUTION WIDTH; Value: 14.3; Range: 11.5-14.5; Units: %; Status: F Test: PLATELET COUNT, AUTOMATED; Value: 197; Range: 150-450; Units: k/mm3; Status: F Test: NEUTROPHILS %; Value: 70.8; Range: 36.0-66.0; Abnormal: Above high normal; Units: %; Status: F Test: LYMPH %; Value: 16.1; Range: 24.0-44.0; Abnormal: Below low normal; Units: %; Status: F Test: MONO %; Value: 6.1; Range: 0.0-5.0; Abnormal: Above high normal; Units: %; Status: F Test: EOS %; Value: 4.6; Range: 0.0-3.0; Abnormal: Above high normal; Units: %; Status: F Test: BASO %; Value: 0.9; Range: 0.0-1.0; Units: %; Status: F Test: LARGE UNSTAINED CELL %; Value: 1.5; Range: 0.0-4.0; Units: %; Status: F Test: NEUTROPHILS #; Value: 6.9; Range: 1.8-7.7; Units: K/mm3; Status: F Test: LYMPH #; Value: 1.7; Range: 1.5-4.5; Units: K/mm3; Status: F Test: MONO #; Value: 0.6; Range: 0.0-0.8; Units: K/mm3; Status: F Test: EOS #; Value: 0.4; Range: 0.0-0.50; Units: K/mm3; Status: F Test: BASO #; Value: 0.1; Range: 0.0-0.2; Units: K/mm3; Status: F Test: LARGE UNSTAINED CELL #; Value: 0.2; Range: 0.0-0.4; Units: K/mm3; Status: F Lab Order: Partial Thromboplastin Time; 12/20/16 08:56 Test: PARTIAL THROMBOPLASTIN TIME; Value: 34.3; Range: 26.6-37.1; Units: SECONDS; Status: F Lab Order: Prothrombin Time Profile\E\INR; 12/20/16 08:56 Test: PROTHROMBIN TIME; Value: 12.2; Range: 12.3-14.5; Abnormal: Below low normal; Units: SECONDS; Status: F Test: INR; Value: 0.89; Status: F Test Note: ; THERAPUTIC HUMAN INR VALUES INDICATIONS NORMAL RANGES PROPHYLAXIS/TREATMENT OF: VENOUS THROMBOSIS 2.0-3.0 PULMONARY EMBOLISM 2.0-3.0 PREVENTION OF SYSTEMIC EMBOLISM FROM: TISSUE HEART VALVES 2.0-3.0 ACUTE MYOCARDIAL INFARCTION 2.0-3.0 VALVULAR HEART DISEASE 2.0-3.0 ATRIAL FIBRILLATION 2.0-3.0 MECHANICAL VALVES(HIGH RISK) 2.5-3.5 RECURRENT MYOCARDIAL INFARCTION 2.5-3.5 Lab Order: Type & Screen; 12/20/16 08:56 Test: BLOOD TYPE; Value: B NEG; Status: F Test: AB SCREEN (INDIRECT ALANNAH)VIS; Value: NEGATIVE; Status: F Lab Order: THYROID STIMULATING HORMONE; 12/20/16 08:56 Test: THYROID STIMULATING HORMONE; Value: 1.330; Range: 0.358-3.740; Units: uIU/ML; Status: F Lab Order: HEMOGLOBIN A1C; 12/20/16 08:56 Test: HEMOGLOBIN A1c; Value: 10.5; Range: 4.5-6.2; Abnormal: Above high normal; Units: %; Status: F Test: ESTIMATED AVERAGE GLUCOSE; Value: 255; Range: 60-110; Abnormal: Above high normal; Units: MG/DL; Status: F Radiology Order: EKG-ADULT Test: EKG-ADULT REASON FOR EXAMINATION: facial droop; Stationary ECG Study; [facility] - ED; ; Test Date: 2016-12-20; Pat Name: PETROS YEBOAH Department:; Room: -; Gender: M Manager Sharepoint:; : 1970 Requested By: KEHINDE Kaur; Order Number: [id number] Reading MD: Sree Pena; Measurements; Intervals [place]; Rate: 69 P: 46; AR: 157 QRS: 78; QRSD: 122 T: 55; QT: 355; QTc: 382; Interpretive Statements; SINUS RHYTHM; MODERATE INTRAVENTRICULAR CONDUCTION DELAY; SIMILAR TO 07/10/15; Electronically Signed On 12-20-2016 18:17:24 EST by Sree Pena; Radiology Order: CT Head Without Contrast Test: CT Head Without Contrast REASON FOR EXAMINATION: CVA <4.5hrs; Clinical: Acute cerebrovascular accident.; ; Comparison: 07/10/2015.; ; Findings:; The ventricles, sulci, and cisterns are normal in position and appearance.; Griggs-white differentiation is maintained. No acute intracranial hemorrhage,; mass/mass effect, pathology or trauma/injury. No evidence for acute infarction.; No extra-axial fluid collection. Calvarium is intact. Paranasal sinuses and; mastoid air cells are clear. A small contusion overlying the left vertex.; ; Impression:; No evidence for acute intracranial pathology or trauma/injury.; ; ; Signed by; Isael Valadez MD 12/20/2016 09:07 A; Radiology Order: Chest, 1 View Test: Chest, 1 View REASON FOR EXAMINATION: CVA <4.5hrs; Clinical: Acute cerebrovascular accident .; ; Comparison: 07/10/2015 .; ; Findings:; The mediastinum and cardiac silhouette are stable and within normal limits for; portable technique. The lung chen are clear without acute consolidation,; effusion, or pneumothorax. Chronic changes at the left base remain stable.; Skeletal structures are intact.; ; Impression:; Stable portable chest x-ray. No acute cardiopulmonary process appreciated.; ; ; Signed by; Isael Valadez MD 12/20/2016 09:02 A; Radiology Order: -MRA-Brain without contrast Test: -MRA-Brain without contrast REASON FOR EXAMINATION: CVA <4.5hrs; MRA BRAIN WITHOUT CONTRAST:; ; HISTORY: Infarction.; ; 3D [id number] MR angiography was performed at the level of the [place] of; [place]. There is no aneurysm, arteriovenous malformation or atherosclerotic; lesion. Major intracranial vessels are patent. The vertebral arteries are equal; in size.; ; IMPRESSION:; ; Normal MRA brain.; ; ; Signed by; Juan Luis Noble MD 12/20/2016 11:28 A; Radiology Order: -MRI-Brain without Test: -MRI-Brain without REASON FOR EXAMINATION: CVA <4.5hrs; MRI BRAIN WITHOUT CONTRAST:; ; HISTORY: Infarction.; ; Comparison CT 12/20/2016.; ; There are no areas of abnormal signal intensity in the brain. There is no; intraparenchymal hemorrhage, infarct, mass or midline shift. The ventricular; system is normal in appearance. There is no extracerebral collection. The; sinuses are clear.; ; IMPRESSION:; ; There is no intracranial lesion.; ; ; Signed by; Juan Luis Noble MD 12/20/2016 11:28 A; Outcome: 10:07 Decision to Hospitalize by Provider. br1 21:24 Patient left the ED. sls1 Signatures: Dispatcher [employer] EDMS Lucia Allison, RN RN Myron Stark, Suraj Arteaga lg RN RN mlb1 Cristiano España, SOCIAL SCIENCES LECTURER SOCIAL SCIENCES LECTURER kb5 Kehinde Mcdonough MD MD br1 Stephanie Paez br3 Ginger Neal RN RN hs1 Viviana Hernandez RN RN sls1 Kendal Najera,RN RN js13 Victor Manuel Kwan Nazeel nq McGrath, Marlynn mm15 Barry Martinez, SOCIAL SCIENCES LECTURER SOCIAL SCIENCES LECTURER jrd Debbie Verdugo Chart Complete MTDD
--- NOTE | 2016-12-22 23:27 | DSES ---
DATE OF ADMISSION: 12/20/2016 DATE OF DISCHARGE: 12/22/2016 PRIMARY CARE PROVIDER: Maurisio Arciniega CONSULTANTS IN THE HOSPITAL: Dr. Mann. PROCEDURES: Echocardiogram. 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 Morbid obesity. Obstructive sleep apnea (LUISA), on CPAP. Asthma. Depression. Iron deficiency anemia. Acid reflux. Migraine headache, intractable with status migrainous, now improving. Occipital neuralgia and tension headaches. DISCHARGE MEDICATIONS: - prednisone, tapering course 40, 30, 20 and 10 to be finished over the next 10 days - valacyclovir 500 mg by mouth twice a day - atorvastatin 40 mg by mouth at bedtime - aspirin 81 mg by mouth daily - albuterol 2 puffs inhaled every 4 hours as needed shortness of breath - Lexapro 20 mg by mouth daily - Esomeprazole 40 mg by mouth daily - ferrous sulfate 225 mg by mouth twice a day - glucosamine chondroitan 2 tablets by mouth daily - glyburide 10 mg by mouth daily - ibuprofen 10 mg by mouth every 8 hours as needed pain - tramadol 50 mg every 6 hours as needed pain - Lantus insulin 30 units at bedtime - multivitamins 1 tablet daily - Senokot 2 tablets daily - testosterone injections 200 mg IM as directed ADDITIONAL DISCHARGE DIAGNOSES: Hyperlipidemia, specifically hypertriglyceridemia. Leukocytosis, reactive, related to steroids. HOSPITAL COURSE: This is a 40-year-old morbidly obese male who presented to the hospital with left-sided headache and left-sided facial droop. The patient was worked up for possible stroke and patient's MRI and MRA of brain were negative. The patient's carotid Dopplers were negative for any obstruction. Echocardiogram was normal although it was a technically difficult study, which did not show any source of possible stroke. The patient was seen to have complete left facial nerve palsy and was diagnosed with Macarthur Palsy and also status migrainous. The patient was also thought to have occipital neuralgia and tension headaches because of extreme sensitivity to touch. The patient also seen by a neurologist, Dr. 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 His headache has been improving with NSAID and prednisone. At present, he does not have any complaints. His vitals are stable and he is functioning to the baseline so the patient is going to be discharged home in stable condition. PHYSICAL EXAMINATION: VITAL SIGNS: Temperature 95.8, pulse 66, respiratory rat 18, blood pressure 115/59, pulse oximetry 97% in room air. GENERAL: The patient awake, alert and oriented times three. Lying down in bed, in no acute distress. HEENT: Normocephalic, atraumatic. Moist mucous membranes. Anicteric eyes. CHEST: Clear to auscultation. CARDIOVASCULAR: S1, S2. Regular. No rub, murmur or gallop. ABDOMEN: Obese, soft, nontender. Bowel sounds present. EXTREMITIES: No edema. LABORATORY DATA: WBC 15.3, hemoglobin 16.6, platelet 234. Sodium 139, potassium 3.6, chloride 102, bicarbonate 26, BUN 21, creatinine 1.1. Glucose 268. Calcium 9.1, triglycerides 322. Cholesterol 204, LDL 116, HDL 23, TSH 1.33. Hemoglobin A1c 10.5. Coagulation profile normal. DISPOSITION: The patient is discharged home in a stable condition. DISCHARGE INSTRUCTIONS: The patient to followup with Dr. Srinivasan in 1 to 2 weeks. The patient to followup with primary care provider in 1 week. Carbohydrate consistent diet. Activity as tolerated. The patient instructed to increase his Lantus by 5 units if sugars greater than 300 and to increase his Lantus by 10 units if sugars greater than 400. The patient to call his primary care provider if his sugars are more than 500 and patient instructed to drink lots of water if his sugars are persistently more than 350.
== END 2016-12-22 10:52 | disposition home or self-care (01) | DRG 48 ==
LOC: M ED 08:35 → M ED INP 10:56 → M PCU 21:22
PROVIDERS: ADMIT Internal Medicine; ATTEND Hospitalist
DX: G51.0 Bell's palsy (principal); E66.01 Morbid (severe) obesity due to excess calories; D50.9 Iron deficiency anemia, unspecified; E11.9 Type 2 diabetes mellitus without complications; E78.1 Pure hyperglyceridemia; F32.9 Major depressive disorder, single episode, unspecified; G43.911 Migraine, unspecified, intractable, with status migrainosus; G47.33 Obstructive sleep apnea (adult) (pediatric); J45.909 Unspecified asthma, uncomplicated; M54.81 Occipital neuralgia; G44.209 Tension-type headache, unspecified, not intractable; D72.829 Elevated white blood cell count, unspecified; K21.9 Gastro-esophageal reflux disease without esophagitis; Z79.82 Long term (current) use of aspirin; Z79.4 Long term (current) use of insulin; Z79.899 Other long term (current) drug therapy; Z99.89 Dependence on other enabling machines and devices; Z79.51 Long term (current) use of inhaled steroids; Z91.041 Radiographic dye allergy status; Z88.1 Allergy status to other antibiotic agents; Z88.8 Allergy status to other drugs, medicaments and biological substances; Z72.0 Tobacco use; Z82.49 Family history of ischemic heart disease and other diseases of the circulatory system; Z82.3 Family history of stroke

== ENCOUNTER 2016-12-23 18:50 | Emergency (ER) | payer BC ==
[~2016-12-23 18:50] MED LIST changes: +ALBU17IN INH; +ASPI81TA85 PO; +ATOR1TAB21 PO; +FERR325T3 PO; +GLUCTAB6 PO; +GLYB5TA PO; +IBUP200C PO; +LANTINJ4 SC; +NEXI40CA PO; +PRED10TA FT; +SENN8.6T10 PO; +SENO8.6T2 PO; +TEST200I14 IM; +TRAM50TA2 PO; +VALA500T PO; +VITMTA PO
[2016-12-23 20:29] LABS: OSMOLALITY SERUM 298 MOSM/KG (275-295)
[2016-12-23 20:32] LABS: BASO # 0.1 K/mm3 (0.0-0.2); BASO % 0.6 % (0.0-1.0); EOS # 0.2 K/mm3 (0.0-0.50); EOS % 1.1 % (0.0-3.0); LARGE UNSTAINED CELL # 0.1 K/mm3 (0.0-0.4); LARGE UNSTAINED CELL % 0.9 % (0.0-4.0); LYMPH # 2.6 K/mm3 (1.5-4.5); LYMPH % 15.4 % (24.0-44.0); MEAN CORPUSCULAR HEMOGLOBIN 27.8 pg (27.0-33.0); MEAN CORPUSCULAR HGB CONC 32.8 g/dl (32.0-36.5); MEAN CORPUSCULAR VOLUME 84.8 fl (80.0-96.0); MONO # 0.9 K/mm3 (0.0-0.8); MONO % 5.9 % (0.0-5.0); NEUTROPHILS % 76.2 % (36.0-66.0); PLATELET COUNT, AUTOMATED 222 k/mm3 (150-450); RED CELL DISTRIBUTION WIDTH 14.2 % (11.5-14.5); WHITE BLOOD COUNT 15.8 K/mm3 (4.0-10.0)
[2016-12-23 20:38] LABS: VENOUS BASE EXCESS 0.7 (-2.0-2.0); VENOUS O2 SATURATION 76.6 % (60.0-80.0); VENOUS PARTIAL PRESSURE CO2 44.5 mmHg (38.0-50.0); VENOUS PARTIAL PRESSURE O2 42.4 mmHg (30.0-50.0); VENOUS STANDARD HCO3 24.5 MEQ/L; VENOUS TOTAL CO2 27.5 MEQ/L (24.0-28.0)
[2016-12-23 20:46] LABS: ALBUMIN 3.3 GM/DL (3.2-5.2); ALBUMIN/GLOBULIN RATIO 0.94 (1.00-1.93); ALKALINE PHOSPHATASE 93 U/L (45-117); ALT/SGPT 44 U/L (12-78); ANION GAP 8 MEQ/L (8-16); AST/SGOT 17 U/L (15-37); BILIRUBIN,TOTAL 0.3 MG/DL (0.2-1.0); BLOOD UREA NITROGEN 17 MG/DL (7-18); CALCIUM LEVEL 8.1 MG/DL (8.5-10.1); CARBON DIOXIDE LEVEL 27 MEQ/L (21-32); CHLORIDE LEVEL 105 MEQ/L (98-107); CREATININE FOR GFR 1.28 MG/DL (0.70-1.30); FREE T4 1.05 NG/DL (0.76-1.46); GLOMERULAR FILTRATION RATE > 60.0 (>60); GLUCOSE, FASTING 207 MG/DL (70-105); POTASSIUM SERUM 3.4 MEQ/L (3.5-5.1); SODIUM LEVEL 140 MEQ/L (136-145); TOTAL PROTEIN 6.8 GM/DL (6.4-8.2)
--- NOTE | 2016-12-23 22:44 | EDDOCDS ---
Nurse's Notes [facility] Name: Petros Dickey Age: 46 yrs Sex: Male : 1970 Arrival Date: 12/23/2016 Time: 18:50 Bed 11 Private MD: Diagnosis: Dizziness and giddiness;Other specified diabetes mellitus with hypoglycemia Presentation: 12/23 18:57 Presenting complaint: Patient states: states that he was just D/C home yesterday after ml6 being admitted for rodriguez's palsy, patient states he did shopping today, came home to snow from roof having falling on sidewalks, shoveled sidewalks then became diaphoretic and dizzy, ems called. The last date and time the patient was known to be well was was at an unknown time on an unknown date. No acute neurological deficit is noted. The patients blood glucose was checked before arriving to the hospital and was found to be normal. Adult Sepsis Screening: Accepted Exclusions- The patient does not have new or worsening altered mentation. Patient's respiratory rate is less than 22. Systolic blood pressure is greater than 100. Patient has a qSOFA score of 0- Negative Sepsis Screen. Suicide/Homicide risk assessment- the patient denies having any suicidal and/or homicidal ideations and does not present with any other emotional, behavioral or mental health complaints. Status: Patient is not a pharmacy service associate or dependent. Transition of care: patient was not received from another setting of care. 18:57 Acuity: SUSIE Level 3 ml6 18:57 Method Of Arrival: Ambulance ml6 Triage Assessment: 18:57 The onset of the patients symptoms was at an unknown time. General: Appears in no ml6 apparent distress, Behavior is appropriate for age, cooperative. Pain: Denies pain. HIV screening NA for this visit Offered previously. Neurological: Level of Consciousness is awake, alert, Oriented to person, place, time, Services Rep are equal bilaterally Moves all extremities. Full function Gait is steady, Reports no additional symptoms. Cardiovascular: No deficits noted. Capillary refill < 3 seconds is brisk in bilateral fingers toes. Respiratory: No deficits noted. Airway is patent Respiratory effort is even, unlabored, Respiratory pattern is regular, symmetrical, Breath sounds are clear bilaterally. Historical: - Allergies: CT Dye; Erythromycin; Niacin; - Home Meds: 1. Albuterol Inhl 2 puffs prn (Last dose: 12/23/2016 07:00) 2. glucosamine-chondroitin oral 2 tab daily (Last dose: 12/23/2016 07:00) 3. glyburide 10 mg Oral tab 1 tab once daily (Last dose: 12/23/2016 07:00) 4. Lantus 100 unit/mL Sub-Q soln 30 unit daily (Last dose: 12/23/2016 07:00) 5. Lexapro 20 mg Oral tab 1 tab once daily (Last dose: 12/23/2016 07:00) 6. Nexium 40 mg Oral cpDR 1 cap once daily (Last dose: 12/23/2016 07:00) 7. Testerone injection Q 10 days (Last dose: Unknown) 8. tramadol 50 mg Oral tab 1 tab every 6 hours (Last dose: 12/23/2016 07:00) 9. antiviral? never filled - PMHx: Asthma; Diabetes - NIDDM: controlled; GERD; Low Testosterone; Depression; OA; Rodriguez's Palsy; - PSHx: none; - Social history: Smoking status: Patient states was never smoker of tobacco. No barriers to communication noted, Speaks appropriately for age. - Family history: Not pertinent. - : The pt / caregiver states he / she is not on anticoagulants. Home medication list is obtained from the patient. - Exposure Risk Screening:: None identified. Screenin:19 Screening information is obtained from the patient. Fall risk: No risks identified. mlc Assistance ADL's: requires no assistance with activities of daily living. Abuse/DV Screen: The patient / caregiver reports he/she is: not in a situation that causes fear, pain or injury. Nutritional screening: No deficits noted. home support is adequate. 22:41 Advance Directives: There is no active DNR order. [facility] Assessment: 19:19 General: Appears in no apparent distress, comfortable, Behavior is cooperative. mlc General:. Pain: Denies pain. Neurological: Level of Consciousness is awake, alert, lethargic, obeys commands, Oriented to person, place, time, Speech is normal, Facial droop on left. Neurological: Reports weakness. Cardiovascular: Capillary refill < 3 seconds Heart tones S1 S2 present Rhythm is regular Chest pain is denied. Respiratory: Airway is patent Respiratory effort is even, unlabored, Respiratory pattern is regular, Breath sounds are clear bilaterally. Derm: Skin is normal. 21:13 Reassessment: Patient appears in no apparent distress at this time. pt ambulated to [facility] bathroom, tolerated well. pt denies dizziness. pt finished eating [employer]. family at bedside. 22:24 Reassessment: Patient appears in no apparent distress at this time. Patient denies pain mlc at this time. Patient states feeling better. 22:41 General: Appears in no apparent distress, comfortable, Behavior is cooperative. Pain: mlc Denies pain. Neurological: Level of Consciousness is awake, alert, Oriented to person, place, time. Respiratory: Airway is patent Respiratory effort is even, unlabored, Respiratory pattern is regular. Vital Signs: 18:56 BP 130 / 60; Pulse 70; Resp 20; Temp 98.3(TE); Pulse Ox 95% on R/A; Weight 136.08 kg jose (R); Height 5 ft. 7 in. (170.18 cm) (R); Pain 0/10; 19:55 Pulse 70 MON; Pulse Ox 96% ; mlc 19:55 BP 138 / 67 (auto/); mlc 20:10 Pulse 70 MON; Pulse Ox 96% ; mlc 20:10 BP 128 / 61 (auto/); mlc 20:25 Pulse 68 MON; Pulse Ox 95% ; mlc 20:25 BP 126 / 64 (auto/); mlc 20:40 Pulse 72 MON; Pulse Ox 96% ; mlc 20:40 BP 130 / 66 (auto/); mlc 20:55 Pulse 86 MON; Pulse Ox 97% ; mlc 20:55 BP 143 / 79 (auto/); mlc 21:10 BP 137 / 71 (auto/); mlc 21:12 Pulse 80 MON; Pulse Ox 95% ; mlc 21:25 BP 122 / 60 (auto/); mlc 21:25 Pulse 82 MON; Pulse Ox 95% ; mlc 21:40 Pulse 82 MON; Pulse Ox 93% ; mlc 21:40 BP 123 / 61 (auto/); mlc 21:55 Pulse 82 MON; Pulse Ox 95% ; mlc 21:55 BP 130 / 62 (auto/); mlc 22:10 Pulse 80 MON; Pulse Ox 95% ; mlc 22:10 BP 128 / 62 (auto/); mlc 22:23 Pulse 78 MON; Pulse Ox 94% ; mlc 22:41 BP 138 / 72; Pulse 81; Resp 18; Temp 97.1; Pulse Ox 97% on R/A; Pain 0/10; mlc 18:56 Body Mass Index 46.99 (136.08 kg, 170.18 cm) jose ED Course: 18:51 Patient visited by Carmine Ridley, Line Mover. ml3 18:51 Ryder Mosquera RN is Primary Nurse. ml3 18:51 Patient moved to Waiting ml3 18:51 Patient moved to 11 ml3 18:55 Rachelle Kearney RN is Primary Nurse. mlc 18:57 Patient visited by Bev Goodman PCA. jose 18:57 Pt greeted and oriented to ED. Patient advised of names of staff involved in care, jose location of call rodriguez, wait times and NPO status. Accompanied by Significant Other, Patient has correct armband on for positive identification. Placed in gown. Bed in low position. Call light in reach. Side rails up X2. hard tile setter apprentice on. Pulse ox on. NIBP on. 19:06 Triage Initiated ml6 19:09 Maintain field IV. Dressing intact. Good blood return noted. Site clean & dry. Gauge & ml6 site: 20g PIV. 19:17 Reno Morales DO is PHCP. gk1 19:18 Ryder Jose DO is Attending Physician. gk1 19:21 Patient visited by Rachelle Kearney RN. mlc 19:29 Primary Nurse role handed off by Ryder Mosquera, MEET jose 19:55 The patient / caregiver is instructed regarding the plan of care and ED course. mlc 20:04 Patient visited by Bev Goodman PCA. jose 20:04 EKG done. (by ED staff). Reviewed by Reno Morales DO. jose 20:10 CBC with Diff Sent. mlc 20:10 Complete Comphrensive Metabolic Sent. mlc 20:10 Osmolality, Serum Sent. mlc 20:25 FT4&TSH PANEL Sent. js15 20:25 ACETONE/KETONE Sent. js15 20:25 Venous Blood Gas (large pea green tube on ice) Sent. js15 20:52 Patient visited by Ryder Jose DO. mm11 21:12 Urinalysis Sent. mlc 21:14 Patient visited by Rachelle Kearney RN. mlc 21:14 [facility] Payment Agreement was scanned into [employer] and attached to record. gb 22:21 Patient visited by Ryder Jose DO. mm11 22:24 Patient visited by Rachelle Kearney RN. mlc 22:33 Maurisio Arciniega PA is Referral Physician. gk1 22:41 Patient visited by Reno Morales DO. gk1 22:41 Discontinued IV lock intact, bleeding controlled, pressure dressing applied, No mlc redness/swelling at site. No procedures done that require assistance. Administered Medications: 21:31 Drug: NS 0.9% 1000 ml [sodium chloride 0.9 % intravenous solution] Route: IV; Rate: mlc bolus; Site: left antecubital; 22:43 Follow up: IV Status: Completed infusion mlc Point of Care Testing: Blood Glucose: 20:09 Blood Glucose: 214 mg/dL; mlc Ranges: Order Results: Lab Order: CBC with Diff; SPEC'M 12/23/16 18:59 Test: WHITE BLOOD COUNT; Value: 15.8; Range: 4.0-10.0; Abnormal: Above high normal; Units: K/mm3; Status: F Test: RED BLOOD COUNT; Value: 5.66; Range: 4.30-6.10; Units: M/mm3; Status: F Test: HEMOGLOBIN; Value: 15.7; Range: 14.0-18.0; Units: g/dl; Status: F Test: HEMATOCRIT; Value: 48.0; Range: 42.0-52.0; Units: %; Status: F Test: MEAN CORPUSCULAR VOLUME; Value: 84.8; Range: 80.0-96.0; Units: fl; Status: F Test: MEAN CORPUSCULAR HEMOGLOBIN; Value: 27.8; Range: 27.0-33.0; Units: pg; Status: F Test: MEAN CORPUSCULAR HGB CONC; Value: 32.8; Range: 32.0-36.5; Units: g/dl; Status: F Test: RED CELL DISTRIBUTION WIDTH; Value: 14.2; Range: 11.5-14.5; Units: %; Status: F Test: PLATELET COUNT, AUTOMATED; Value: 222; Range: 150-450; Units: k/mm3; Status: F Test: NEUTROPHILS %; Value: 76.2; Range: 36.0-66.0; Abnormal: Above high normal; Units: %; Status: F Test: LYMPH %; Value: 15.4; Range: 24.0-44.0; Abnormal: Below low normal; Units: %; Status: F Test: MONO %; Value: 5.9; Range: 0.0-5.0; Abnormal: Above high normal; Units: %; Status: F Test: EOS %; Value: 1.1; Range: 0.0-3.0; Units: %; Status: F Test: BASO %; Value: 0.6; Range: 0.0-1.0; Units: %; Status: F Test: LARGE UNSTAINED CELL %; Value: 0.9; Range: 0.0-4.0; Units: %; Status: F Test: NEUTROPHILS #; Value: 12.0; Range: 1.8-7.7; Abnormal: Above high normal; Units: K/mm3; Status: F Test: LYMPH #; Value: 2.6; Range: 1.5-4.5; Units: K/mm3; Status: F Test: MONO #; Value: 0.9; Range: 0.0-0.8; Abnormal: Above high normal; Units: K/mm3; Status: F Test: EOS #; Value: 0.2; Range: 0.0-0.50; Units: K/mm3; Status: F Test: BASO #; Value: 0.1; Range: 0.0-0.2; Units: K/mm3; Status: F Test: LARGE UNSTAINED CELL #; Value: 0.1; Range: 0.0-0.4; Units: K/mm3; Status: F Lab Order: Complete Comphrensive Metabolic; SPEC'M 12/23/16 18:59 Test: GLUCOSE, FASTING; Value: 207; Range: 70-105; Abnormal: Above high normal; Units: MG/DL; Status: F Test: BLOOD UREA NITROGEN; Value: 17; Range: 7-18; Units: MG/DL; Status: F Test: CREATININE FOR GFR; Value: 1.28; Range: 0.70-1.30; Units: MG/DL; Status: F Test: SODIUM LEVEL; Range: 136-145; Units: MEQ/L; Status: I Test: POTASSIUM SERUM; Range: 3.5-5.1; Units: MEQ/L; Status: I Test: CHLORIDE LEVEL; Range: 98-107; Units: MEQ/L; Status: I Test: CARBON DIOXIDE LEVEL; Range: 21-32; Units: MEQ/L; Status: I Test: ANION GAP; Range: 8-16; Units: MEQ/L; Status: I Test: CALCIUM LEVEL; Range: 8.5-10.1; Units: MG/DL; Status: I Test: AST/SGOT; Range: 15-37; Units: U/L; Status: I Test: ALT/SGPT; Range: 12-78; Units: U/L; Status: I Test: ALKALINE PHOSPHATASE; Range: 45-117; Units: U/L; Status: I Test: BILIRUBIN,TOTAL; Range: 0.2-1.0; Units: MG/DL; Status: I Test: TOTAL PROTEIN; Range: 6.4-8.2; Units: GM/DL; Status: I Test: ALBUMIN; Range: 3.2-5.2; Units: GM/DL; Status: I Test: ALBUMIN/GLOBULIN RATIO; Range: 1.00-1.93; Status: I Test: GLOMERULAR FILTRATION RATE; Value: > 60.0; Range: >60; Status: F Test: SODIUM LEVEL; Value: 140; Range: 136-145; Units: MEQ/L; Status: F Test: POTASSIUM SERUM; Value: 3.4; Range: 3.5-5.1; Abnormal: Below low normal; Units: MEQ/L; Status: F Test: CHLORIDE LEVEL; Value: 105; Range: 98-107; Units: MEQ/L; Status: F Test: CARBON DIOXIDE LEVEL; Value: 27; Range: 21-32; Units: MEQ/L; Status: F Test: ANION GAP; Value: 8; Range: 8-16; Units: MEQ/L; Status: F Test: CALCIUM LEVEL; Value: 8.1; Range: 8.5-10.1; Abnormal: Below low normal; Units: MG/DL; Status: F Test: AST/SGOT; Value: 17; Range: 15-37; Units: U/L; Status: F Test: ALT/SGPT; Value: 44; Range: 12-78; Units: U/L; Status: F Test: ALKALINE PHOSPHATASE; Value: 93; Range: 45-117; Units: U/L; Status: F Test: BILIRUBIN,TOTAL; Value: 0.3; Range: 0.2-1.0; Units: MG/DL; Status: F Test: TOTAL PROTEIN; Value: 6.8; Range: 6.4-8.2; Units: GM/DL; Status: F Test: ALBUMIN; Value: 3.3; Range: 3.2-5.2; Units: GM/DL; Status: F Test: ALBUMIN/GLOBULIN RATIO; Value: 0.94; Range: 1.00-1.93; Abnormal: Below low normal; Status: F Test Note: ; Units are mL/min/1.73 m2 Chronic Kidney Disease Staging per NKF: Stage I & II GFR >=60 Normal to Mildly Decreased Stage III GFR 30-59 Moderately Decreased Stage IV GFR 15-29 Severely Decreased Stage V GFR <15 Very Little GFR Left ESRD GFR <15 on WEB OFFSET PRESS FEEDER Lab Order: Urinalysis; SPEC'M 12/23/16 21:09 Test: APPEARANCE, URINE; Value: CLEAR; Range: CLEAR; Status: F Test: COLOR, URINE; Value: YELLOW; Range: YELLOW; Status: F Test: PH,URINE; Value: 5.0; Range: 5.0-9.0; Units: UNITS; Status: F Test: SPECIFIC GRAVITY URINE AUTO; Value: 1.021; Range: 1.002-1.035; Status: F Test: PROTEIN, URINE AUTO; Value: NEGATIVE; Range: NEGATIVE; Units: mg/dL; Status: F Test: GLUCOSE, URINE (UA) AUTO; Value: 1+; Range: NEGATIVE; Abnormal: Above high normal; Units: mg/dL; Status: F Test: KETONE, URINE AUTO; Value: TRACE; Range: NEGATIVE; Abnormal: Above high normal; Units: mg/dL; Status: F Test: UROBILINOGEN, URINE AUTO; Value: 0.2; Range: 0.0-2.0; Units: mg/dL; Status: F Test: BILIRUBIN, URINE AUTO; Value: NEGATIVE; Range: NEGATIVE; Status: F Test: NITRITE, URINE AUTO; Value: NEGATIVE; Range: NEGATIVE; Status: F Test: LEUKOCYTE ESTERASE, URINE AUTO; Value: NEGATIVE; Range: NEGATIVE; Status: F Test: BLOOD, URINE BLOOD; Value: NEGATIVE; Range: NEGATIVE; Status: F Test: WBC, URINE AUTO; Value: 1; Range: 0-3; Units: /HPF; Status: F Test: RBC, URINE AUTO; Value: 2; Range: 0-3; Units: /HPF; Status: F Test: BACTERIA, URINE AUTO; Value: NEGATIVE; Range: NEGATIVE; Status: F Test: SQUAMOUS EPITHELIAL CELL UR AU; Value: 0; Range: 0-6; Units: /HPF; Status: F Test: MUCUS, URINE; Value: SMALL; Range: NEGATIVE; Status: F Test: HYALINE CAST, URINE AUTO; Value: 0; Range: 0-1; Units: /LPF; Status: F Lab Order: Osmolality, Serum; [facility] 12/23/16 18:59 Test: OSMOLALITY SERUM; Value: 298; Range: 275-295; Abnormal: Above high normal; Units: MOSM/KG; Status: F Lab Order: Venous Blood Gas (large pea green tube on ice); [facility] 12/23/16 20:15 Test: VENOUS PH; Value: 7.387; Range: 7.330-7.430; Units: UNITS; Status: F Test: VENOUS PARTIAL PRESSURE CO2; Value: 44.5; Range: 38.0-50.0; Units: mmHg; Status: F Test: VENOUS PARTIAL PRESSURE O2; Value: 42.4; Range: 30.0-50.0; Units: mmHg; Status: F Test: VENOUS TOTAL CO2; Value: 27.5; Range: 24.0-28.0; Units: MEQ/L; Status: F Test: VENOUS HCO3; Value: 26.2; Range: 23.0-27.0; Units: MEQ/L; Status: F Test: VENOUS BASE EXCESS; Value: 0.7; Range: -2.0-2.0; Status: F Test: VENOUS STANDARD HCO3; Value: 24.5; Units: MEQ/L; Status: F Test: VENOUS O2 SATURATION; Value: 76.6; Range: 60.0-80.0; Units: %; Status: F Lab Order: Fingerstick Blood Sugar; [facility] 12/23/16 20:08 Test: BEDSIDE GLUCOSE; Value: 214; Range: 70-105; Abnormal: Above high normal; Units: MG/DL; Status: F Test Note: ; RN Notified Dr Order not to Draw Lab Order: ACETONE/KETONE; SPEC'M 12/23/16 18:59 Test: ACETONE/KETONE; Value: 1.46; Range: <2.81; Units: MG/DL; Status: F Lab Order: FT4&TSH PANEL; SPEC'M 12/23/16 18:59 Test: THYROID STIMULATING HORMONE; Value: 1.160; Range: 0.358-3.740; Units: uIU/ML; Status: F Test: FREE T4; Value: 1.05; Range: 0.76-1.46; Units: NG/DL; Status: F Outcome: 22:35 Discharge ordered by Provider. gk1 22:41 Discharge Assessment: Patient awake, alert and oriented x 3. No cognitive and/or mlc functional deficits noted. Patient verbalized understanding of disposition instructions. patient administered narcotics - no. The following High Risk Discharge criteria are identified: None. Discharged to home ambulatory, with family. Condition: good Condition: stable. Discharge instructions given to patient, Instructed on discharge instructions, follow up and referral plans. Demonstrated understanding of instructions, Pt was receptive of discharge instructions/ teaching. No special radiology studies were completed. Property sent home with patient. 22:43 Patient left the ED. [facility] Signatures: Mayi Boo, Reg Reg Soni Woodybeth, Line Mover Unit ml3 Ryder Jose, DO mm11 Ryder Mosquera, RN RN ml6 Bev Goodman, LOAN ADVISER LOAN ADVISER jose Rachelle Kearney RN RN mlc Sweeney, Julia, RN RN js15 Reno Morales, DO DO gk1 Corrections: (The following items were deleted from the chart) 20:21 20:10 THYROID STIMULATING HORMONE+LAB sent. [facility] EDMS MTDD
--- NOTE | 2016-12-23 22:44 | EDDOCDS ---
Physician Documentation [facility] Name: Petros Dickey Age: 46 yrs Sex: Male : 1970 Arrival Date: 12/23/2016 Time: 18:50 Bed 11 Private MD: Disposition: 12/23 21:35 I have independently interviewed and examined the patient, and I agree with the mm11 investigation, diagnosis and treatment plan as documented by the Resident. Disposition: 12/23/16 22:35 Discharged to Home/Self Care. Impression: Dizziness and giddiness, Other specified diabetes mellitus with hypoglycemia. - Condition is Stable. - Discharge Instructions: Dizziness, Hypoglycemia, Dizziness, [id number], Hypoglycemia, Yyth-uu-Sele. - Medication Reconciliation, Local Pharmacy Hours form. - Follow up: Maurisio Arciniega PA; When: 4 - 5 days; Reason: Recheck today's complaints, Continuance of care. - Problem is new. - Symptoms are resolved. Historical: - Allergies: CT Dye; Erythromycin; Niacin; - Home Meds: 1. Albuterol Inhl 2 puffs prn (Last dose: 12/23/2016 07:00) 2. glucosamine-chondroitin oral 2 tab daily (Last dose: 12/23/2016 07:00) 3. glyburide 10 mg Oral tab 1 tab once daily (Last dose: 12/23/2016 07:00) 4. Lantus 100 unit/mL Sub-Q soln 30 unit daily (Last dose: 12/23/2016 07:00) 5. Lexapro 20 mg Oral tab 1 tab once daily (Last dose: 12/23/2016 07:00) 6. Nexium 40 mg Oral cpDR 1 cap once daily (Last dose: 12/23/2016 07:00) 7. Testerone injection Q 10 days (Last dose: Unknown) 8. tramadol 50 mg Oral tab 1 tab every 6 hours (Last dose: 12/23/2016 07:00) 9. antiviral? never filled - PMHx: Asthma; Diabetes - NIDDM: controlled; GERD; Low Testosterone; Depression; OA; Rodriguez's Palsy; - PSHx: none; - Social history: Smoking status: Patient states was never smoker of tobacco. No barriers to communication noted, Speaks appropriately for age. - Family history: Not pertinent. - : The pt / caregiver states he / she is not on anticoagulants. Home medication list is obtained from the patient. - Exposure Risk Screening:: None identified. Vital Signs: 18:56 BP 130 / 60; Pulse 70; Resp 20; Temp 98.3(TE); Pulse Ox 95% on R/A; Weight 136.08 kg / jose 300.01 lbs (R); Height 5 ft. 7 in. (170.18 cm) (R); Pain 0/10; 19:55 Pulse 70 MON; Pulse Ox 96% ; mlc 19:55 BP 138 / 67 (auto/); mlc 20:10 Pulse 70 MON; Pulse Ox 96% ; mlc 20:10 BP 128 / 61 (auto/); mlc 20:25 Pulse 68 MON; Pulse Ox 95% ; mlc 20:25 BP 126 / 64 (auto/); mlc 20:40 Pulse 72 MON; Pulse Ox 96% ; mlc 20:40 BP 130 / 66 (auto/); mlc 20:55 Pulse 86 MON; Pulse Ox 97% ; mlc 20:55 BP 143 / 79 (auto/); mlc 21:10 BP 137 / 71 (auto/); mlc 21:12 Pulse 80 MON; Pulse Ox 95% ; mlc 21:25 BP 122 / 60 (auto/); mlc 21:25 Pulse 82 MON; Pulse Ox 95% ; mlc 21:40 Pulse 82 MON; Pulse Ox 93% ; mlc 21:40 BP 123 / 61 (auto/); mlc 21:55 Pulse 82 MON; Pulse Ox 95% ; mlc 21:55 BP 130 / 62 (auto/); mlc 22:10 Pulse 80 MON; Pulse Ox 95% ; mlc 22:10 BP 128 / 62 (auto/); mlc 22:23 Pulse 78 MON; Pulse Ox 94% ; mlc 22:41 BP 138 / 72; Pulse 81; Resp 18; Temp 97.1; Pulse Ox 97% on R/A; Pain 0/10; mlc 18:56 Body Mass Index 46.99 (136.08 kg, 170.18 cm) jose MDM: 19:51 ECG WITH READING ER PHYS+CARDIAG ordered. EDMS 20:02 Accucheck ordered. gk1 20:07 IV Saline Lock ordered. gk1 20:08 CBC with Diff Ordered. EDMS 20:08 Complete Comphrensive Metabolic Ordered. EDMS 20:08 Urinalysis Ordered. EDMS 20:08 Osmolality, Serum Ordered. EDMS 20:08 Venous Blood Gas (large pea green tube on ice) Ordered. EDMS 20:10 CONSISTENT CARBOHYDRATE+DIET ordered. EDMS 20:16 Fingerstick Blood Sugar Ordered. EDMS 20:22 ACETONE/KETONE Ordered. EDMS 20:22 FT4&TSH PANEL Ordered. EDMS 20:44 CBC with Diff Reviewed. mm11 20:44 Osmolality, Serum Reviewed. mm11 20:44 Fingerstick Blood Sugar Reviewed. mm11 20:44 Venous Blood Gas (large pea green tube on ice) Reviewed. mm11 21:08 Financial registration complete. gb 21:14 [facility] Payment Agreement was scanned into [employer] and attached to record. gb 21:25 Complete Comphrensive Metabolic Reviewed. mm11 21:25 Osmolality, Serum Reviewed. mm11 21:25 ACETONE/KETONE Reviewed. mm11 21:25 FT4&TSH PANEL Reviewed. mm11 21:26 NS 0.9% 1000 ml IV at bolus once ordered. mm11 22:12 Urinalysis Reviewed. gk1 Point of Care Testing: Blood Glucose: 20:09 Blood Glucose: 214 mg/dL; mlc Ranges: Administered Medications: 21:31 Drug: NS 0.9% 1000 ml [sodium chloride 0.9 % intravenous solution] Route: IV; Rate: mlc bolus; Site: left antecubital; 22:43 Follow up: IV Status: Completed infusion mlc Signatures: Dispatcher [employer] EDMA Mayi Boo, Antonio Reg Ryder Lopez DO DO mm11 Ryder Mosquera RN RN ml6 Rachelle Kearney RN RN mlc Kaur, Gurpreet, DO DO gk1 The chart was reviewed and I authenticate all verbal orders and agree with the evaluation and treatment provided.Corrections: (The following items were deleted from the chart) 20:21 20:08 THYROID STIMULATING HORMONE+LAB ordered. EDMS EDMS 20:21 20:11 FT4&TSH PANEL+LAB ordered. EDMS EDMS 20:23 20:09 ACETONE/KETONE+LAB ordered. EDMS EDMS Attachments: 21:14 [facility] Payment Agreement gb MTDD
--- NOTE | 2016-12-24 08:28 | ECGEPIP ---
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
--- NOTE | 2016-12-25 23:44 | EDDOCDS ---
Nurse's Notes [facility] Name: Raine Dickey Age: 46 yrs Sex: Male : 1970 Arrival Date: 12/23/2016 Time: 18:50 Bed 11 Private MD: Diagnosis: Dizziness and giddiness;Other specified diabetes mellitus with hypoglycemia Presentation: 12/23 18:57 Presenting complaint: Patient states: states that he was just D/C home yesterday after ml6 being admitted for rodriguez's palsy, patient states he did shopping today, came home to snow from roof having falling on sidewalks, shoveled sidewalks then became diaphoretic and dizzy, ems called. The last date and time the patient was known to be well was was at an unknown time on an unknown date. No acute neurological deficit is noted. The patients blood glucose was checked before arriving to the hospital and was found to be normal. Adult Sepsis Screening: Accepted Exclusions- The patient does not have new or worsening altered mentation. Patient's respiratory rate is less than 22. Systolic blood pressure is greater than 100. Patient has a qSOFA score of 0- Negative Sepsis Screen. Suicide/Homicide risk assessment- the patient denies having any suicidal and/or homicidal ideations and does not present with any other emotional, behavioral or mental health complaints. 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 Transition of care: patient was not received from another setting of care. 18:57 Acuity: SUSIE Level 3 ml6 18:57 Method Of Arrival: Ambulance ml6 Triage Assessment: 18:57 The onset of the patients symptoms was at an unknown time. General: Appears in no ml6 apparent distress, Behavior is appropriate for age, cooperative. Pain: Denies pain. HIV screening NA for this visit Offered previously. Neurological: Level of Consciousness is awake, alert, Oriented to person, place, time, Refresh Technician are equal bilaterally Moves all extremities. Full function Gait is steady, Reports no additional symptoms. Cardiovascular: No deficits noted. Capillary refill < 3 seconds is brisk in bilateral fingers toes. Respiratory: No deficits noted. Airway is patent Respiratory effort is even, unlabored, Respiratory pattern is regular, symmetrical, Breath sounds are clear bilaterally. Historical: - Allergies: CT Dye; Erythromycin; Niacin; - Home Meds: 1. Albuterol Inhl 2 puffs prn (Last dose: 12/23/2016 07:00) 2. glucosamine-chondroitin oral 2 tab daily (Last dose: 12/23/2016 07:00) 3. glyburide 10 mg Oral tab 1 tab once daily (Last dose: 12/23/2016 07:00) 4. Lantus 100 unit/mL Sub-Q soln 30 unit daily (Last dose: 12/23/2016 07:00) 5. Lexapro 20 mg Oral tab 1 tab once daily (Last dose: 12/23/2016 07:00) 6. Nexium 40 mg Oral cpDR 1 cap once daily (Last dose: 12/23/2016 07:00) 7. Testerone injection Q 10 days (Last dose: Unknown) 8. tramadol 50 mg Oral tab 1 tab every 6 hours (Last dose: 12/23/2016 07:00) 9. antiviral? never filled - PMHx: Asthma; Diabetes - NIDDM: controlled; GERD; Low Testosterone; Depression; OA; Rodriguez's Palsy; - PSHx: none; - Social history: Smoking status: Patient states was never smoker of tobacco. No barriers to communication noted, Speaks appropriately for age. - Family history: Not pertinent. - : The pt / caregiver states he / she is not on anticoagulants. Home medication list is obtained from the patient. - Exposure Risk Screening:: None identified. Screenin:19 Screening information is obtained from the patient. Fall risk: No risks identified. mlc Assistance ADL's: requires no assistance with activities of daily living. Abuse/DV Screen: The patient / caregiver reports he/she is: not in a situation that causes fear, pain or injury. Nutritional screening: No deficits noted. home support is adequate. 22:41 Advance Directives: There is no active DNR order. [facility] Assessment: 19:19 General: Appears in no apparent distress, comfortable, Behavior is cooperative. mlc General:. Pain: Denies pain. Neurological: Level of Consciousness is awake, alert, lethargic, obeys commands, Oriented to person, place, time, Speech is normal, Facial droop on left. Neurological: Reports weakness. Cardiovascular: Capillary refill < 3 seconds Heart tones S1 S2 present Rhythm is regular Chest pain is denied. Respiratory: Airway is patent Respiratory effort is even, unlabored, Respiratory pattern is regular, Breath sounds are clear bilaterally. Derm: Skin is normal. 21:13 Reassessment: Patient appears in no apparent distress at this time. pt ambulated to [facility] bathroom, tolerated well. pt denies dizziness. pt finished eating [employer]. family at bedside. 22:24 Reassessment: Patient appears in no apparent distress at this time. Patient denies pain mlc at this time. Patient states feeling better. 22:41 General: Appears in no apparent distress, comfortable, Behavior is cooperative. Pain: mlc Denies pain. Neurological: Level of Consciousness is awake, alert, Oriented to person, place, time. Respiratory: Airway is patent Respiratory effort is even, unlabored, Respiratory pattern is regular. Vital Signs: 18:56 BP 130 / 60; Pulse 70; Resp 20; Temp 98.3(TE); Pulse Ox 95% on R/A; Weight 136.08 kg jose (R); Height 5 ft. 7 in. (170.18 cm) (R); Pain 0/10; 19:55 Pulse 70 MON; Pulse Ox 96% ; mlc 19:55 BP 138 / 67 (auto/); mlc 20:10 Pulse 70 MON; Pulse Ox 96% ; mlc 20:10 BP 128 / 61 (auto/); mlc 20:25 Pulse 68 MON; Pulse Ox 95% ; mlc 20:25 BP 126 / 64 (auto/); mlc 20:40 Pulse 72 MON; Pulse Ox 96% ; mlc 20:40 BP 130 / 66 (auto/); mlc 20:55 Pulse 86 MON; Pulse Ox 97% ; mlc 20:55 BP 143 / 79 (auto/); mlc 21:10 BP 137 / 71 (auto/); mlc 21:12 Pulse 80 MON; Pulse Ox 95% ; mlc 21:25 BP 122 / 60 (auto/); mlc 21:25 Pulse 82 MON; Pulse Ox 95% ; mlc 21:40 Pulse 82 MON; Pulse Ox 93% ; mlc 21:40 BP 123 / 61 (auto/); mlc 21:55 Pulse 82 MON; Pulse Ox 95% ; mlc 21:55 BP 130 / 62 (auto/); mlc 22:10 Pulse 80 MON; Pulse Ox 95% ; mlc 22:10 BP 128 / 62 (auto/); mlc 22:23 Pulse 78 MON; Pulse Ox 94% ; mlc 22:41 BP 138 / 72; Pulse 81; Resp 18; Temp 97.1; Pulse Ox 97% on R/A; Pain 0/10; mlc 18:56 Body Mass Index 46.99 (136.08 kg, 170.18 cm) jose ED Course: 18:51 Patient visited by Carmine Ridley, Rf Test Engineer. ml3 18:51 Ryder Mosquera RN is Primary Nurse. ml3 18:51 Patient moved to Waiting ml3 18:51 Patient moved to 11 ml3 18:55 Rachelle Kearney RN is Primary Nurse. mlc 18:57 Patient visited by Bev Goodman PCA. jose 18:57 Pt greeted and oriented to ED. Patient advised of names of staff involved in care, jose location of call rodriguez, wait times and NPO status. Accompanied by Significant Other, Patient has correct armband on for positive identification. Placed in gown. Bed in low position. Call light in reach. Side rails up X2. quality assurance monitor body on. Pulse ox on. NIBP on. 19:06 Triage Initiated ml6 19:09 Maintain field IV. Dressing intact. Good blood return noted. Site clean & dry. Gauge & ml6 site: 20g PIV. 19:17 Reno Morales DO is PHCP. gk1 19:18 Ryder Jose DO is Attending Physician. gk1 19:21 Patient visited by Rachelle Kearney RN. mlc 19:29 Primary Nurse role handed off by Ryder Mosquera, MEET jose 19:55 The patient / caregiver is instructed regarding the plan of care and ED course. mlc 20:04 Patient visited by Bev Goodman PCA. jose 20:04 EKG done. (by ED staff). Reviewed by Reno Morales DO. jose 20:10 CBC with Diff Sent. mlc 20:10 Complete Comphrensive Metabolic Sent. mlc 20:10 Osmolality, Serum Sent. mlc 20:25 FT4&TSH PANEL Sent. js15 20:25 ACETONE/KETONE Sent. js15 20:25 Venous Blood Gas (large pea green tube on ice) Sent. js15 20:52 Patient visited by Ryder Jose DO. mm11 21:12 Urinalysis Sent. mlc 21:14 Patient visited by Rachelle Kearney RN. mlc 21:14 [facility] Payment Agreement was scanned into MEDHOST and attached to record. gb 22:21 Patient visited by Ryder Jose DO. mm11 22:24 Patient visited by Rachelle Kearney RN. mlc 22:33 Maurisio Arciniega PA is Referral Physician. gk1 22:41 Patient visited by Reno Morales DO. gk1 22:41 Discontinued IV lock intact, bleeding controlled, pressure dressing applied, No mlc redness/swelling at site. No procedures done that require assistance. 12/24 08:38 EKG-ADULT Returned. EDMS 09:43 T-Sheet-- Draft Copy was scanned into Robert Applebaum MD and attached to record. jp5 12/25 11:12 ECG/EKG was scanned into [employer] and attached to record. gb 11:13 PCR was scanned into MEDHOST and attached to record. gb Administered Medications: 12/23 21:31 Drug: NS 0.9% 1000 ml [sodium chloride 0.9 % intravenous solution] Route: IV; Rate: mlc bolus; Site: left antecubital; 22:43 Follow up: IV Status: Completed infusion [facility] Point of Care Testing: Blood Glucose: 20:09 Blood Glucose: 214 mg/dL; mlc Ranges: Order Results: Lab Order: CBC with Diff; SPEC'M 12/23/16 18:59 Test: WHITE BLOOD COUNT; Value: 15.8; Range: 4.0-10.0; Abnormal: Above high normal; Units: K/mm3; Status: F Test: RED BLOOD COUNT; Value: 5.66; Range: 4.30-6.10; Units: M/mm3; Status: F Test: HEMOGLOBIN; Value: 15.7; Range: 14.0-18.0; Units: g/dl; Status: F Test: HEMATOCRIT; Value: 48.0; Range: 42.0-52.0; Units: %; Status: F Test: MEAN CORPUSCULAR VOLUME; Value: 84.8; Range: 80.0-96.0; Units: fl; Status: F Test: MEAN CORPUSCULAR HEMOGLOBIN; Value: 27.8; Range: 27.0-33.0; Units: pg; Status: F Test: MEAN CORPUSCULAR HGB CONC; Value: 32.8; Range: 32.0-36.5; Units: g/dl; Status: F Test: RED CELL DISTRIBUTION WIDTH; Value: 14.2; Range: 11.5-14.5; Units: %; Status: F Test: PLATELET COUNT, AUTOMATED; Value: 222; Range: 150-450; Units: k/mm3; Status: F Test: NEUTROPHILS %; Value: 76.2; Range: 36.0-66.0; Abnormal: Above high normal; Units: %; Status: F Test: LYMPH %; Value: 15.4; Range: 24.0-44.0; Abnormal: Below low normal; Units: %; Status: F Test: MONO %; Value: 5.9; Range: 0.0-5.0; Abnormal: Above high normal; Units: %; Status: F Test: EOS %; Value: 1.1; Range: 0.0-3.0; Units: %; Status: F Test: BASO %; Value: 0.6; Range: 0.0-1.0; Units: %; Status: F Test: LARGE UNSTAINED CELL %; Value: 0.9; Range: 0.0-4.0; Units: %; Status: F Test: NEUTROPHILS #; Value: 12.0; Range: 1.8-7.7; Abnormal: Above high normal; Units: K/mm3; Status: F Test: LYMPH #; Value: 2.6; Range: 1.5-4.5; Units: K/mm3; Status: F Test: MONO #; Value: 0.9; Range: 0.0-0.8; Abnormal: Above high normal; Units: K/mm3; Status: F Test: EOS #; Value: 0.2; Range: 0.0-0.50; Units: K/mm3; Status: F Test: BASO #; Value: 0.1; Range: 0.0-0.2; Units: K/mm3; Status: F Test: LARGE UNSTAINED CELL #; Value: 0.1; Range: 0.0-0.4; Units: K/mm3; Status: F Lab Order: Complete Comphrensive Metabolic; SPEC'M 12/23/16 18:59 Test: GLUCOSE, FASTING; Value: 207; Range: 70-105; Abnormal: Above high normal; Units: MG/DL; Status: F Test: BLOOD UREA NITROGEN; Value: 17; Range: 7-18; Units: MG/DL; Status: F Test: CREATININE FOR GFR; Value: 1.28; Range: 0.70-1.30; Units: MG/DL; Status: F Test: SODIUM LEVEL; Range: 136-145; Units: MEQ/L; Status: I Test: POTASSIUM SERUM; Range: 3.5-5.1; Units: MEQ/L; Status: I Test: CHLORIDE LEVEL; Range: 98-107; Units: MEQ/L; Status: I Test: CARBON DIOXIDE LEVEL; Range: 21-32; Units: MEQ/L; Status: I Test: ANION GAP; Range: 8-16; Units: MEQ/L; Status: I Test: CALCIUM LEVEL; Range: 8.5-10.1; Units: MG/DL; Status: I Test: AST/SGOT; Range: 15-37; Units: U/L; Status: I Test: ALT/SGPT; Range: 12-78; Units: U/L; Status: I Test: ALKALINE PHOSPHATASE; Range: 45-117; Units: U/L; Status: I Test: BILIRUBIN,TOTAL; Range: 0.2-1.0; Units: MG/DL; Status: I Test: TOTAL PROTEIN; Range: 6.4-8.2; Units: GM/DL; Status: I Test: ALBUMIN; Range: 3.2-5.2; Units: GM/DL; Status: I Test: ALBUMIN/GLOBULIN RATIO; Range: 1.00-1.93; Status: I Test: GLOMERULAR FILTRATION RATE; Value: > 60.0; Range: >60; Status: F Test: SODIUM LEVEL; Value: 140; Range: 136-145; Units: MEQ/L; Status: F Test: POTASSIUM SERUM; Value: 3.4; Range: 3.5-5.1; Abnormal: Below low normal; Units: MEQ/L; Status: F Test: CHLORIDE LEVEL; Value: 105; Range: 98-107; Units: MEQ/L; Status: F Test: CARBON DIOXIDE LEVEL; Value: 27; Range: 21-32; Units: MEQ/L; Status: F Test: ANION GAP; Value: 8; Range: 8-16; Units: MEQ/L; Status: F Test: CALCIUM LEVEL; Value: 8.1; Range: 8.5-10.1; Abnormal: Below low normal; Units: MG/DL; Status: F Test: AST/SGOT; Value: 17; Range: 15-37; Units: U/L; Status: F Test: ALT/SGPT; Value: 44; Range: 12-78; Units: U/L; Status: F Test: ALKALINE PHOSPHATASE; Value: 93; Range: 45-117; Units: U/L; Status: F Test: BILIRUBIN,TOTAL; Value: 0.3; Range: 0.2-1.0; Units: MG/DL; Status: F Test: TOTAL PROTEIN; Value: 6.8; Range: 6.4-8.2; Units: GM/DL; Status: F Test: ALBUMIN; Value: 3.3; Range: 3.2-5.2; Units: GM/DL; Status: F Test: ALBUMIN/GLOBULIN RATIO; Value: 0.94; Range: 1.00-1.93; Abnormal: Below low normal; Status: F Test Note: ; Units are mL/min/1.73 m2 Chronic Kidney Disease Staging per NKF: Stage I & II GFR >=60 Normal to Mildly Decreased Stage III GFR 30-59 Moderately Decreased Stage IV GFR 15-29 Severely Decreased Stage V GFR <15 Very Little GFR Left ESRD GFR <15 on MILLING OPERATOR Lab Order: Urinalysis; SPEC'M 12/23/16 21:09 Test: APPEARANCE, URINE; Value: CLEAR; Range: CLEAR; Status: F Test: COLOR, URINE; Value: YELLOW; Range: YELLOW; Status: F Test: PH,URINE; Value: 5.0; Range: 5.0-9.0; Units: UNITS; Status: F Test: SPECIFIC GRAVITY URINE AUTO; Value: 1.021; Range: 1.002-1.035; Status: F Test: PROTEIN, URINE AUTO; Value: NEGATIVE; Range: NEGATIVE; Units: mg/dL; Status: F Test: GLUCOSE, URINE (UA) AUTO; Value: 1+; Range: NEGATIVE; Abnormal: Above high normal; Units: mg/dL; Status: F Test: KETONE, URINE AUTO; Value: TRACE; Range: NEGATIVE; Abnormal: Above high normal; Units: mg/dL; Status: F Test: UROBILINOGEN, URINE AUTO; Value: 0.2; Range: 0.0-2.0; Units: mg/dL; Status: F Test: BILIRUBIN, URINE AUTO; Value: NEGATIVE; Range: NEGATIVE; Status: F Test: NITRITE, URINE AUTO; Value: NEGATIVE; Range: NEGATIVE; Status: F Test: LEUKOCYTE ESTERASE, URINE AUTO; Value: NEGATIVE; Range: NEGATIVE; Status: F Test: BLOOD, URINE BLOOD; Value: NEGATIVE; Range: NEGATIVE; Status: F Test: WBC, URINE AUTO; Value: 1; Range: 0-3; Units: /HPF; Status: F Test: RBC, URINE AUTO; Value: 2; Range: 0-3; Units: /HPF; Status: F Test: BACTERIA, URINE AUTO; Value: NEGATIVE; Range: NEGATIVE; Status: F Test: SQUAMOUS EPITHELIAL CELL UR AU; Value: 0; Range: 0-6; Units: /HPF; Status: F Test: MUCUS, URINE; Value: SMALL; Range: NEGATIVE; Status: F Test: HYALINE CAST, URINE AUTO; Value: 0; Range: 0-1; Units: /LPF; Status: F Lab Order: Osmolality, Serum; SPEC'M 12/23/16 18:59 Test: OSMOLALITY SERUM; Value: 298; Range: 275-295; Abnormal: Above high normal; Units: MOSM/KG; Status: F Lab Order: Venous Blood Gas (large pea green tube on ice); [facility] 12/23/16 20:15 Test: VENOUS PH; Value: 7.387; Range: 7.330-7.430; Units: UNITS; Status: F Test: VENOUS PARTIAL PRESSURE CO2; Value: 44.5; Range: 38.0-50.0; Units: mmHg; Status: F Test: VENOUS PARTIAL PRESSURE O2; Value: 42.4; Range: 30.0-50.0; Units: mmHg; Status: F Test: VENOUS TOTAL CO2; Value: 27.5; Range: 24.0-28.0; Units: MEQ/L; Status: F Test: VENOUS HCO3; Value: 26.2; Range: 23.0-27.0; Units: MEQ/L; Status: F Test: VENOUS BASE EXCESS; Value: 0.7; Range: -2.0-2.0; Status: F Test: VENOUS STANDARD HCO3; Value: 24.5; Units: MEQ/L; Status: F Test: VENOUS O2 SATURATION; Value: 76.6; Range: 60.0-80.0; Units: %; Status: F Lab Order: Fingerstick Blood Sugar; SPEC'M 12/23/16 20:08 Test: BEDSIDE GLUCOSE; Value: 214; Range: 70-105; Abnormal: Above high normal; Units: MG/DL; Status: F Test Note: ; RN Notified Dr Order not to Draw Lab Order: ACETONE/KETONE; SPEC'M 12/23/16 18:59 Test: ACETONE/KETONE; Value: 1.46; Range: <2.81; Units: MG/DL; Status: F Lab Order: FT4&TSH PANEL; SPEC'M 12/23/16 18:59 Test: THYROID STIMULATING HORMONE; Value: 1.160; Range: 0.358-3.740; Units: uIU/ML; Status: F Test: FREE T4; Value: 1.05; Range: 0.76-1.46; Units: NG/DL; Status: F Radiology Order: EKG-ADULT Test: EKG-ADULT REASON FOR EXAMINATION: Syncope; Stationary ECG Study; [facility] - ED; ; Test Date: 2016-12-23; Pat Name: RAINE IDCKEY Department:; Room: -; Gender: M 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 gk1 22:41 Discharge Assessment: Patient awake, alert and oriented x 3. No cognitive and/or mlc functional deficits noted. Patient verbalized understanding of disposition instructions. patient administered narcotics - no. The following High Risk Discharge criteria are identified: None. Discharged to home ambulatory, with family. Condition: good Condition: stable. Discharge instructions given to patient, Instructed on discharge instructions, follow up and referral plans. Demonstrated understanding of instructions, Pt was receptive of discharge instructions/ teaching. No special radiology studies were completed. Property sent home with patient. 22:43 Patient left the ED. [facility] Signatures: Dispatcher Med[employer] EDMS RajeevMayi, Reg Reg gb Carmine Ridley, Rf Test Engineer Unit ml3 Ryder Jose, DO DO mm11 Ryder Mosquera, RN RN ml6 Bev Goodman, INSURANCE INSPECTOR INSURANCE INSPECTOR jose Rachelle Kearney,RN RN Janet ChairezRN RN js15 Naye Yeager jp5 Reno Morales, DO DO gk1 Corrections: (The following items were deleted from the chart) 20:21 20:10 THYROID STIMULATING HORMONE+LAB sent. [facility] EDRI Chart Complete MTDD
--- NOTE | 2016-12-25 23:44 | EDDOCDS ---
Physician Documentation [facility] Name: Petros Dickey Age: 46 yrs Sex: Male : 1970 Arrival Date: 12/23/2016 Time: 18:50 Bed 11 Private MD: Disposition: 12/23 21:35 I have independently interviewed and examined the patient, and I agree with the mm11 investigation, diagnosis and treatment plan as documented by the Resident. Disposition: 12/23/16 22:35 Discharged to Home/Self Care. Impression: Dizziness and giddiness, Other specified diabetes mellitus with hypoglycemia. - Condition is Stable. - Discharge Instructions: Dizziness, Hypoglycemia, Dizziness, [id number], Hypoglycemia, [id number]. - Medication Reconciliation, Local Pharmacy Hours form. - Follow up: Maurisio Arciniega PA; When: 4 - 5 days; Reason: Recheck today's complaints, Continuance of care. - Problem is new. - Symptoms are resolved. Historical: - Allergies: CT Dye; Erythromycin; Niacin; - Home Meds: 1. Albuterol Inhl 2 puffs prn (Last dose: 12/23/2016 07:00) 2. glucosamine-chondroitin oral 2 tab daily (Last dose: 12/23/2016 07:00) 3. glyburide 10 mg Oral tab 1 tab once daily (Last dose: 12/23/2016 07:00) 4. Lantus 100 unit/mL Sub-Q soln 30 unit daily (Last dose: 12/23/2016 07:00) 5. Lexapro 20 mg Oral tab 1 tab once daily (Last dose: 12/23/2016 07:00) 6. Nexium 40 mg Oral cpDR 1 cap once daily (Last dose: 12/23/2016 07:00) 7. Testerone injection Q 10 days (Last dose: Unknown) 8. tramadol 50 mg Oral tab 1 tab every 6 hours (Last dose: 12/23/2016 07:00) 9. antiviral? never filled - PMHx: Asthma; Diabetes - NIDDM: controlled; GERD; Low Testosterone; Depression; OA; Rodriguez's Palsy; - PSHx: none; - Social history: Smoking status: Patient states was never smoker of tobacco. No barriers to communication noted, Speaks appropriately for age. - Family history: Not pertinent. - : The pt / caregiver states he / she is not on anticoagulants. Home medication list is obtained from the patient. - Exposure Risk Screening:: None identified. Vital Signs: 18:56 BP 130 / 60; Pulse 70; Resp 20; Temp 98.3(TE); Pulse Ox 95% on R/A; Weight 136.08 kg / jose 300.01 lbs (R); Height 5 ft. 7 in. (170.18 cm) (R); Pain 0/10; 19:55 Pulse 70 MON; Pulse Ox 96% ; mlc 19:55 BP 138 / 67 (auto/); mlc 20:10 Pulse 70 MON; Pulse Ox 96% ; mlc 20:10 BP 128 / 61 (auto/); mlc 20:25 Pulse 68 MON; Pulse Ox 95% ; mlc 20:25 BP 126 / 64 (auto/); mlc 20:40 Pulse 72 MON; Pulse Ox 96% ; mlc 20:40 BP 130 / 66 (auto/); mlc 20:55 Pulse 86 MON; Pulse Ox 97% ; mlc 20:55 BP 143 / 79 (auto/); mlc 21:10 BP 137 / 71 (auto/); mlc 21:12 Pulse 80 MON; Pulse Ox 95% ; mlc 21:25 BP 122 / 60 (auto/); mlc 21:25 Pulse 82 MON; Pulse Ox 95% ; mlc 21:40 Pulse 82 MON; Pulse Ox 93% ; mlc 21:40 BP 123 / 61 (auto/); mlc 21:55 Pulse 82 MON; Pulse Ox 95% ; mlc 21:55 BP 130 / 62 (auto/); mlc 22:10 Pulse 80 MON; Pulse Ox 95% ; mlc 22:10 BP 128 / 62 (auto/); mlc 22:23 Pulse 78 MON; Pulse Ox 94% ; mlc 22:41 BP 138 / 72; Pulse 81; Resp 18; Temp 97.1; Pulse Ox 97% on R/A; Pain 0/10; mlc 18:56 Body Mass Index 46.99 (136.08 kg, 170.18 cm) jose MDM: 19:51 ECG WITH READING ER PHYS+CARDIAG ordered. EDMS 20:02 Accucheck ordered. gk1 20:07 IV Saline Lock ordered. gk1 20:08 CBC with Diff Ordered. EDMS 20:08 Complete Comphrensive Metabolic Ordered. EDMS 20:08 Urinalysis Ordered. EDMS 20:08 Osmolality, Serum Ordered. EDMS 20:08 Venous Blood Gas (large pea green tube on ice) Ordered. EDMS 20:10 CONSISTENT CARBOHYDRATE+DIET ordered. EDMS 20:16 Fingerstick Blood Sugar Ordered. EDMS 20:22 ACETONE/KETONE Ordered. EDMS 20:22 FT4&TSH PANEL Ordered. EDMS 20:44 CBC with Diff Reviewed. mm11 20:44 Osmolality, Serum Reviewed. mm11 20:44 Fingerstick Blood Sugar Reviewed. mm11 20:44 Venous Blood Gas (large pea green tube on ice) Reviewed. mm11 21:08 Financial registration complete. gb 21:14 [facility] Payment Agreement was scanned into [employer] and attached to record. gb 21:25 Complete Comphrensive Metabolic Reviewed. mm11 21:25 Osmolality, Serum Reviewed. mm11 21:25 ACETONE/KETONE Reviewed. mm11 21:25 FT4&TSH PANEL Reviewed. mm11 21:26 NS 0.9% 1000 ml IV at bolus once ordered. mm11 22:12 Urinalysis Reviewed. gk1 12/24 09:43 T-Sheet-- Draft Copy was scanned into [employer] and attached to record. jp5 12/25 11:12 ECG/EKG was scanned into [employer] and attached to record. gb 11:13 PCR was scanned into [employer] and attached to record. Point of Care Testing: Blood Glucose: 12/23 20:09 Blood Glucose: 214 mg/dL; [facility] Ranges: Administered Medications: 21:31 Drug: NS 0.9% 1000 ml [sodium chloride 0.9 % intravenous solution] Route: IV; Rate: mlc bolus; Site: left antecubital; 22:43 Follow up: IV Status: Completed infusion mlc Signatures: Dispatcher [employer] EDOH Mayi Boo, Reg Reg Ryder Lopez DO DO mm11 Ryder Mosquera RN RN ml6 Rachelle Kearney RN RN Naye Ortega jp5 Reno Morales DO DO gk1 The chart was reviewed and I authenticate all verbal orders and agree with the evaluation and treatment provided.Corrections: (The following items were deleted from the chart) 20:21 20:08 THYROID STIMULATING HORMONE+LAB ordered. EDMS EDMS 20:21 20:11 FT4&TSH PANEL+LAB ordered. EDMS EDMS 20: 20:09 ACETONE/KETONE+LAB ordered. EDMS EDMS Attachments: 21:14 [facility] Payment Agreement gb 12/24 09:43 T-Sheet-- Draft Copy jp5 12/25 11:12 ECG/EKG gb Chart Complete MTDD
--- NOTE | 2016-12-25 23:44 | EDDOCDS ---
Physician Documentation [facility] Name: Petros Dickey Age: 46 yrs Sex: Male : 1970 Arrival Date: 12/23/2016 Time: 18:50 Bed 11 Private MD: Disposition: 12/23 21:35 I have independently interviewed and examined the patient, and I agree with the mm11 investigation, diagnosis and treatment plan as documented by the Resident. Disposition: 12/23/16 22:35 Discharged to Home/Self Care. Impression: Dizziness and giddiness, Other specified diabetes mellitus with hypoglycemia. - Condition is Stable. - Discharge Instructions: Dizziness, Hypoglycemia, Dizziness, [id number], Hypoglycemia, [id number]. - Medication Reconciliation, Local Pharmacy Hours form. - Follow up: Maurisio Arciniega PA; When: 4 - 5 days; Reason: Recheck today's complaints, Continuance of care. - Problem is new. - Symptoms are resolved. Historical: - Allergies: CT Dye; Erythromycin; Niacin; - Home Meds: 1. Albuterol Inhl 2 puffs prn (Last dose: 12/23/2016 07:00) 2. glucosamine-chondroitin oral 2 tab daily (Last dose: 12/23/2016 07:00) 3. glyburide 10 mg Oral tab 1 tab once daily (Last dose: 12/23/2016 07:00) 4. Lantus 100 unit/mL Sub-Q soln 30 unit daily (Last dose: 12/23/2016 07:00) 5. Lexapro 20 mg Oral tab 1 tab once daily (Last dose: 12/23/2016 07:00) 6. Nexium 40 mg Oral cpDR 1 cap once daily (Last dose: 12/23/2016 07:00) 7. Testerone injection Q 10 days (Last dose: Unknown) 8. tramadol 50 mg Oral tab 1 tab every 6 hours (Last dose: 12/23/2016 07:00) 9. antiviral? never filled - PMHx: Asthma; Diabetes - NIDDM: controlled; GERD; Low Testosterone; Depression; OA; Rodriguez's Palsy; - PSHx: none; - Social history: Smoking status: Patient states was never smoker of tobacco. No barriers to communication noted, Speaks appropriately for age. - Family history: Not pertinent. - : The pt / caregiver states he / she is not on anticoagulants. Home medication list is obtained from the patient. - Exposure Risk Screening:: None identified. Vital Signs: 18:56 BP 130 / 60; Pulse 70; Resp 20; Temp 98.3(TE); Pulse Ox 95% on R/A; Weight 136.08 kg / jose 300.01 lbs (R); Height 5 ft. 7 in. (170.18 cm) (R); Pain 0/10; 19:55 Pulse 70 MON; Pulse Ox 96% ; mlc 19:55 BP 138 / 67 (auto/); mlc 20:10 Pulse 70 MON; Pulse Ox 96% ; mlc 20:10 BP 128 / 61 (auto/); mlc 20:25 Pulse 68 MON; Pulse Ox 95% ; mlc 20:25 BP 126 / 64 (auto/); mlc 20:40 Pulse 72 MON; Pulse Ox 96% ; mlc 20:40 BP 130 / 66 (auto/); mlc 20:55 Pulse 86 MON; Pulse Ox 97% ; mlc 20:55 BP 143 / 79 (auto/); mlc 21:10 BP 137 / 71 (auto/); mlc 21:12 Pulse 80 MON; Pulse Ox 95% ; mlc 21:25 BP 122 / 60 (auto/); mlc 21:25 Pulse 82 MON; Pulse Ox 95% ; mlc 21:40 Pulse 82 MON; Pulse Ox 93% ; mlc 21:40 BP 123 / 61 (auto/); mlc 21:55 Pulse 82 MON; Pulse Ox 95% ; mlc 21:55 BP 130 / 62 (auto/); mlc 22:10 Pulse 80 MON; Pulse Ox 95% ; mlc 22:10 BP 128 / 62 (auto/); mlc 22:23 Pulse 78 MON; Pulse Ox 94% ; mlc 22:41 BP 138 / 72; Pulse 81; Resp 18; Temp 97.1; Pulse Ox 97% on R/A; Pain 0/10; mlc 18:56 Body Mass Index 46.99 (136.08 kg, 170.18 cm) jose MDM: 19:51 ECG WITH READING ER PHYS+CARDIAG ordered. EDMS 20:02 Accucheck ordered. gk1 20:07 IV Saline Lock ordered. gk1 20:08 CBC with Diff Ordered. EDMS 20:08 Complete Comphrensive Metabolic Ordered. EDMS 20:08 Urinalysis Ordered. EDMS 20:08 Osmolality, Serum Ordered. EDMS 20:08 Venous Blood Gas (large pea green tube on ice) Ordered. EDMS 20:10 CONSISTENT CARBOHYDRATE+DIET ordered. EDMS 20:16 Fingerstick Blood Sugar Ordered. EDMS 20:22 ACETONE/KETONE Ordered. EDMS 20:22 FT4&TSH PANEL Ordered. EDMS 20:44 CBC with Diff Reviewed. mm11 20:44 Osmolality, Serum Reviewed. mm11 20:44 Fingerstick Blood Sugar Reviewed. mm11 20:44 Venous Blood Gas (large pea green tube on ice) Reviewed. mm11 21:08 Financial registration complete. gb 21:14 [facility] [place] Payment Agreement was scanned into [employer] and attached to record. gb 21:25 Complete Comphrensive Metabolic Reviewed. mm11 21:25 Osmolality, Serum Reviewed. mm11 21:25 ACETONE/KETONE Reviewed. mm11 21:25 FT4&TSH PANEL Reviewed. mm11 21:26 NS 0.9% 1000 ml IV at bolus once ordered. mm11 22:12 Urinalysis Reviewed. gk1 12/24 09:43 T-Sheet-- Draft Copy was scanned into [employer] and attached to record. jp5 12/25 11:12 ECG/EKG was scanned into [employer] and attached to record. gb 11:13 PCR was scanned into [employer] and attached to record. Point of Care Testing: Blood Glucose: 12/23 20:09 Blood Glucose: 214 mg/dL; [facility] [place] Ranges: Administered Medications: 21:31 Drug: NS 0.9% 1000 ml [sodium chloride 0.9 % intravenous solution] Route: IV; Rate: mlc bolus; Site: left antecubital; 22:43 Follow up: IV Status: Completed infusion mlc Signatures: Dispatcher [employer] EDCT Mayi Boo, Reg Reg Ryder Lopez DO DO mm11 Ryder Mosquera RN RN ml6 Rachelle Kearney RN RN Naye Ortega jp5 Reno Morales DO DO gk1 The chart was reviewed and I authenticate all verbal orders and agree with the evaluation and treatment provided.Corrections: (The following items were deleted from the chart) 20:21 20:08 THYROID STIMULATING HORMONE+LAB ordered. EDMS EDMS 20:21 20:11 FT4&TSH PANEL+LAB ordered. EDMS EDMS 20: 20:09 ACETONE/KETONE+LAB ordered. EDMS EDMS Attachments: 21:14 [facility] Payment Agreement gb 12/24 09:43 T-Sheet-- Draft Copy jp5 12/25 11:12 ECG/EKG gb Chart Complete MTDD
== END 2016-12-23 22:43 | disposition home or self-care (01) ==
LOC: M ED 18:50
DX: E11.649 Type 2 diabetes mellitus with hypoglycemia without coma (principal); J45.909 Unspecified asthma, uncomplicated; K21.9 Gastro-esophageal reflux disease without esophagitis; M19.90 Unspecified osteoarthritis, unspecified site; G51.0 Bell's palsy; F32.9 Major depressive disorder, single episode, unspecified; E29.1 Testicular hypofunction; Z79.899 Other long term (current) drug therapy; Z79.4 Long term (current) use of insulin; Z88.1 Allergy status to other antibiotic agents; Z88.8 Allergy status to other drugs, medicaments and biological substances; Z91.041 Radiographic dye allergy status

== ENCOUNTER 2017-04-16 13:25 | Emergency (ER) | payer BC ==
[~2017-04-16] VITALS: Ht 170.2 cm; Wt 140.5 kg
[2017-04-16 14:12] LABS: BASO # 0.1 K/mm3 (0.0-0.2); BASO % 1.1 % (0.0-1.0); EOS # 0.4 K/mm3 (0.0-0.50); EOS % 4.3 % (0.0-3.0); LARGE UNSTAINED CELL # 0.1 K/mm3 (0.0-0.4); LARGE UNSTAINED CELL % 1.1 % (0.0-4.0); LYMPH # 1.8 K/mm3 (1.5-4.5); LYMPH % 16.2 % (24.0-44.0); MEAN CORPUSCULAR HEMOGLOBIN 29.7 pg (27.0-33.0); MEAN CORPUSCULAR HGB CONC 35.2 g/dl (32.0-36.5); MEAN CORPUSCULAR VOLUME 84.5 fl (80.0-96.0); MONO # 0.7 K/mm3 (0.0-0.8); MONO % 6.5 % (0.0-5.0); NEUTROPHILS # 7.3 K/mm3 (1.8-7.7); NEUTROPHILS % 70.8 % (36.0-66.0); PLATELET COUNT, AUTOMATED 211 k/mm3 (150-450); RED CELL DISTRIBUTION WIDTH 13.9 % (11.5-14.5); WHITE BLOOD COUNT 10.3 K/mm3 (4.0-10.0)
--- NOTE | 2017-04-16 14:26 | REP ---
PORTABLE CHEST: AP portable view of the chest is performed and compared a prior study of 12/20/2016. There is cardiomegaly. Bibasilar interstitial fibrosis is stable with no evidence of acute infiltrate. Mediastinal silhouette is unchanged. IMPRESSION: Chronic changes. Cardiomegaly. No acute infiltrate. Signed by Guanaco Griggs MD 04/16/2017 05:13 P
[2017-04-16] MEDS ORDERED: NITROGLYCERIN 0.4 MG SUBL TABLET SL STA (14:27)
[2017-04-16 14:30] LABS: ANION GAP 7 MEQ/L (8-16); BLOOD UREA NITROGEN 16 MG/DL (7-18); CALCIUM LEVEL 8.7 MG/DL (8.5-10.1); CARBON DIOXIDE LEVEL 27 MEQ/L (21-32); CHLORIDE LEVEL 106 MEQ/L (98-107); CREATININE FOR GFR 1.08 MG/DL (0.70-1.30); GLOMERULAR FILTRATION RATE > 60.0 (>60); GLUCOSE, FASTING 285 MG/DL (70-105); POTASSIUM SERUM 4.1 MEQ/L (3.5-5.1); SODIUM LEVEL 140 MEQ/L (136-145)
[2017-04-16 14:31] VITALS: BP 118/73
--- NOTE | 2017-04-16 15:27 | REP ---
CT CHEST WITHOUT CONTRAST: CT chest is performed without IV contrast, with sagittal and coronal reconstruction images performed. Comparison is made with a prior study of 09/19/2013. There are scattered interstitial fibrotic changes. There is no acute infiltrate or pulmonary edema. There is no pleural or pericardial effusion. The heart is normal in size. No mediastinal or hilar adenopathy is seen. There is no evidence of aneurysm of the thoracic aorta without minimal atherosclerotic calcifications noted. There are degenerative changes of the spine. In the visualized portions of the upper abdomen, there is a cystic structure in the anterior spleen, which measures 1.9 cm in diameter. IMPRESSION: Mild chronic interstitial changes without evidence of acute pulmonary disease. Signed by Guanaco Griggs MD 04/16/2017 05:14 P
--- NOTE | 2017-04-16 18:19 | ECGEPIP ---
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
[2017-04-16 20:57] VITALS: BP 133/70
--- NOTE | 2017-04-17 05:58 | ECGEPIP ---
Stationary ECG Study [facility] - ED Test Date: 2017-04-16 Pat Name: RAINE YEBOAH Department: Room: - Gender: M Calender Feeder: shanita : 1970 Requested By: KEHINDE Kaur Order Number: [id number] Reading MD: Sree Pena Measurements Intervals [place] Rate: 73 P: 44 MT: 158 QRS: 76 QRSD: 114 T: 49 QT: 361 QTc: 400 Interpretive Statements SINUS RHYTHM MODERATE INTRAVENTRICULAR CONDUCTION DELAY SIMILAR TO PRIOR ON SAME DATE Electronically Signed On 04-17-2017 5:57:49 EDT by Sree Pena
== END 2017-04-16 22:00 | disposition home or self-care (01) ==
LOC: M ED 15:17
DX: R07.9 Chest pain, unspecified (principal); E11.9 Type 2 diabetes mellitus without complications; I11.0 Hypertensive heart disease with heart failure; E78.5 Hyperlipidemia, unspecified; K21.9 Gastro-esophageal reflux disease without esophagitis; J45.909 Unspecified asthma, uncomplicated; G47.33 Obstructive sleep apnea (adult) (pediatric); M54.2 Cervicalgia; G43.909 Migraine, unspecified, not intractable, without status migrainosus; Z72.0 Tobacco use; Z82.49 Family history of ischemic heart disease and other diseases of the circulatory system; Z79.82 Long term (current) use of aspirin; Z79.4 Long term (current) use of insulin; Z79.899 Other long term (current) drug therapy; Z88.1 Allergy status to other antibiotic agents; Z88.8 Allergy status to other drugs, medicaments and biological substances; Z91.041 Radiographic dye allergy status

== ENCOUNTER → 2017-05-20 | Outpatient (REF) | payer BC ==
[~2017-05-20] MED LIST changes: -IBUP200C PO; +IBUP200C10 PO; +PHEN15CA PO; -PHEN15CA58 PO; -PRED10TA FT; +PRED10TA2 FT; +SENN1TAB10 PO; -SENN8.6T10 PO; -SENO8.6T2 PO; +SENO8.6T5 PO; -VALA500T PO; +VALA500T2 PO
== END ==
LOC: M LAB REF 17:45
PROVIDERS: ATTEND Physician Assistant
DX: J03.90 Acute tonsillitis, unspecified (principal)

== ENCOUNTER → 2017-07-17 | Outpatient (CLI) | payer BC ==
[2017-07-17 12:21] LABS: BASO # 0.1 K/mm3 (0.0-0.2); BASO % 0.7 % (0.0-1.0); EOS # 0.4 K/mm3 (0.0-0.50); LARGE UNSTAINED CELL # 0.1 K/mm3 (0.0-0.4); LARGE UNSTAINED CELL % 1.3 % (0.0-4.0); LYMPH # 1.5 K/mm3 (1.5-4.5); LYMPH % 17.2 % (24.0-44.0); MEAN CORPUSCULAR HEMOGLOBIN 28.9 pg (27.0-33.0); MEAN CORPUSCULAR HGB CONC 33.5 g/dl (32.0-36.5); MEAN CORPUSCULAR VOLUME 86.3 fl (80.0-96.0); MONO # 0.6 K/mm3 (0.0-0.8); MONO % 6.5 % (0.0-5.0); NEUTROPHILS # 6.2 K/mm3 (1.8-7.7); NEUTROPHILS % 69.3 % (36.0-66.0); PLATELET COUNT, AUTOMATED 203 k/mm3 (150-450); RED CELL DISTRIBUTION WIDTH 14.4 % (11.5-14.5); WHITE BLOOD COUNT 8.9 K/mm3 (4.0-10.0)
[2017-07-17 13:06] LABS: ERYTHROCYTE SEDIMENTATION RATE 11 mm/hr (0-15)
[2017-07-17 13:07] LABS: ALBUMIN 3.7 GM/DL (3.2-5.2); ALBUMIN/GLOBULIN RATIO 1.16 (1.00-1.93); ALKALINE PHOSPHATASE 112 U/L (45-117); ALT/SGPT 40 U/L (12-78); ANION GAP 9 MEQ/L (8-16); AST/SGOT 13 U/L (15-37); BILIRUBIN,TOTAL 0.4 MG/DL (0.2-1.0); BLOOD UREA NITROGEN 16 MG/DL (7-18); CALCIUM LEVEL 9.1 MG/DL (8.5-10.1); CARBON DIOXIDE LEVEL 28 MEQ/L (21-32); CHLORIDE LEVEL 105 MEQ/L (98-107); CHOLESTEROL LEVEL 182 MG/DL (<200); CREATININE FOR GFR 1.08 MG/DL (0.70-1.30); GLOMERULAR FILTRATION RATE > 60.0 (>60); GLUCOSE, FASTING 232 MG/DL (70-105); POTASSIUM SERUM 4.2 MEQ/L (3.5-5.1); SODIUM LEVEL 142 MEQ/L (136-145); TOTAL PROTEIN 6.9 GM/DL (6.4-8.2); TRIGLYCERIDES LEVEL 439 MG/DL (<150)
== END ==
LOC: M WUC 09:48
PROVIDERS: ATTEND Nurse Practitioner Family
DX: D50.9 Iron deficiency anemia, unspecified (principal); E78.1 Pure hyperglyceridemia; R52 Pain, unspecified

== ENCOUNTER → 2017-10-20 | Outpatient (CLI) | payer BC | LOC: M WUC 12:46 | PROVIDERS: ATTEND Nurse Practitioner Family | DX: E29.1 Testicular hypofunction (principal) ==

== ENCOUNTER → 2017-12-31 | Outpatient (CLI) | payer BC ==
[2017-12-31 13:26] LABS: BASO % 0.5 % (0.0-1.0); EOS # 0.2 10^3/uL (0.0-0.50); EOS % 2.9 % (0.0-3.0); HEMATOCRIT 48.3 % (42.0-52.0); HEMOGLOBIN 15.8 g/dl (14.0-18.0); IMMATURE GRANULOCYTE % 2.3 % (0-3.0); LYMPH % 24.9 % (24.0-44.0); MEAN CORPUSCULAR HEMOGLOBIN 27.9 pg (27.0-33.0); MEAN CORPUSCULAR HGB CONC 32.7 g/dl (32.0-36.5); MEAN CORPUSCULAR VOLUME 85.3 fl (80.0-96.0); MONO # 0.7 10^3/uL (0.0-0.8); MONO % 9.5 % (0.0-5.0); NEUTROPHILS # 4.7 10^3/uL (1.8-7.7); NEUTROPHILS % 59.9 % (36.0-66.0); PLATELET COUNT, AUTOMATED 216 10^3/uL (150-450); RED BLOOD COUNT 5.66 10^6/uL (4.30-6.10); RED CELL DISTRIBUTION WIDTH 13.9 % (11.5-14.5); WHITE BLOOD COUNT 7.8 10^3/uL (4.0-10.0)
[2017-12-31 13:37] LABS: ALBUMIN 3.4 GM/DL (3.2-5.2); ALBUMIN/GLOBULIN RATIO 1.06 (1.00-1.93); ALKALINE PHOSPHATASE 113 U/L (45-117); ALT/SGPT 68 U/L (12-78); ANION GAP 9 MEQ/L (8-16); AST/SGOT 31 U/L (7-37); BILIRUBIN,TOTAL 0.4 MG/DL (0.2-1.0); BLOOD UREA NITROGEN 14 MG/DL (7-18); CALCIUM LEVEL 8.3 MG/DL (8.5-10.1); CARBON DIOXIDE LEVEL 26 MEQ/L (21-32); CHLORIDE LEVEL 104 MEQ/L (98-107); CREATININE FOR GFR 0.94 MG/DL (0.70-1.30); GLOMERULAR FILTRATION RATE > 60.0 (>60); GLUCOSE, FASTING 299 MG/DL (70-100); POTASSIUM SERUM 4.4 MEQ/L (3.5-5.1); SODIUM LEVEL 139 MEQ/L (136-145); TOTAL PROTEIN 6.6 GM/DL (6.4-8.2)
== END ==
LOC: M WUC 09:50
DX: R05 Cough (principal)

== ENCOUNTER → 2018-02-09 | Outpatient (CLI) | payer BC ==
[2018-02-09 14:03] LABS: HEMATOCRIT 49.7 % (42.0-52.0)
[2018-02-09 14:24] LABS: PSA SCREENING 0.53 NG/ML (< 4.0)
[2018-02-11 08:56] LABS: TESTOSTERONE 797 NG/DL (241-827)
== END ==
LOC: M WUC 09:29
DX: E29.1 Testicular hypofunction (principal)
CPT/HCPCS: 84403

== ENCOUNTER → 2018-09-24 | Outpatient (CLI) | payer BC ==
[2018-09-24 17:15] LABS: BASO # 0.1 10^3/uL (0.0-0.2); BASO % 0.9 % (0.0-1.0); EOS # 0.4 10^3/uL (0.0-0.50); EOS % 3.5 % (0.0-3.0); HEMATOCRIT 47.6 % (42.0-52.0); HEMOGLOBIN 15.5 g/dl (13.5-17.5); IMMATURE GRANULOCYTE % 1.4 % (0-3.0); LYMPH # 1.9 10^3/uL (1.5-4.5); LYMPH % 15.2 % (24.0-44.0); MEAN CORPUSCULAR HEMOGLOBIN 28.5 pg (27.0-33.0); MEAN CORPUSCULAR HGB CONC 32.6 g/dl (32.0-36.5); MEAN CORPUSCULAR VOLUME 87.5 fl (80.0-96.0); MONO # 1.1 10^3/uL (0.0-0.8); MONO % 8.6 % (0.0-5.0); NEUTROPHILS # 8.6 10^3/uL (1.8-7.7); NEUTROPHILS % 70.4 % (36.0-66.0); PLATELET COUNT, AUTOMATED 281 10^3/uL (150-450); RED BLOOD COUNT 5.44 10^6/uL (4.30-6.10); RED CELL DISTRIBUTION WIDTH 13.2 % (11.5-14.5); WHITE BLOOD COUNT 12.2 10^3/uL (4.0-10.0)
[2018-09-24 17:16] LABS: ALBUMIN/GLOBULIN RATIO 1.21 (1.00-1.93); ALKALINE PHOSPHATASE 111 U/L (45-117); ALT/SGPT 37 U/L (12-78); ANION GAP 5 MEQ/L (8-16); AST/SGOT 13 U/L (7-37); BILIRUBIN,TOTAL 0.3 MG/DL (0.2-1.0); BLOOD UREA NITROGEN 21 MG/DL (7-18); CALCIUM LEVEL 9.2 MG/DL (8.5-10.1); CARBON DIOXIDE LEVEL 32 MEQ/L (21-32); CHLORIDE LEVEL 105 MEQ/L (98-107); CHOLESTEROL LEVEL 205 MG/DL (<200); CREATININE FOR GFR 0.96 MG/DL (0.70-1.30); GLOMERULAR FILTRATION RATE > 60.0 (>56); GLUCOSE, FASTING 144 MG/DL (70-100); HDL CHOLESTEROL 20 MG/DL (>40); IRON (FE) 59 UG/DL (65-175); LDL CHOLESTEROL 119 MG/DL (<100); NON-HDL-C 185 MG/DL; POTASSIUM SERUM 4.4 MEQ/L (3.5-5.1); SODIUM LEVEL 142 MEQ/L (136-145); TOTAL PROTEIN 7.3 GM/DL (6.4-8.2); TRIGLYCERIDES LEVEL 328 MG/DL (<150)
[2018-09-24 17:33] LABS: ESTIMATED AVERAGE GLUCOSE 163 MG/DL (60-110); HEMOGLOBIN A1c 7.3 %
[2018-09-24 17:49] LABS: ERYTHROCYTE SEDIMENTATION RATE 23 mm/hr (0-20)
== END ==
LOC: M WUC 11:12
DX: D50.9 Iron deficiency anemia, unspecified (principal); R52 Pain, unspecified; E11.9 Type 2 diabetes mellitus without complications
CPT/HCPCS: 83540

== ENCOUNTER 2018-11-17 12:21 | Emergency (ER) | payer BC ==
[~2018-11-17] VITALS: Ht 170.2 cm; Wt 138.6 kg
[2018-11-17 12:21] VITALS: BP 139/75
[~2018-11-17 12:21] MED LIST changes: -IBUP200C10 PO; +IBUP200C25 PO; -VALA500T2 PO; +VALA500T5 PO
[2018-11-17] MEDS ORDERED: TOUJ1.2I SC (12:33)
[2018-11-17] MEDS ORDERED: MELO15TA28 PO (12:33)
[2018-11-17] MEDS ORDERED: ALPH600C PO (12:33)
[2018-11-17] MEDS ORDERED: diazePAM 10 MG TAB PO ONE (13:00)
[2018-11-17] MEDS ORDERED: SOMA350T PO (13:03)
[2018-11-17] MEDS ORDERED: NAPR250T4 PO (13:03)
== END 2018-11-17 13:16 | disposition home or self-care (01) ==
LOC: M ED 12:21
DX: M54.16 Radiculopathy, lumbar region (principal); Z87.19 Personal history of other diseases of the digestive system; Z79.899 Other long term (current) drug therapy; Z79.82 Long term (current) use of aspirin; Z88.0 Allergy status to penicillin; Z88.8 Allergy status to other drugs, medicaments and biological substances; Z91.041 Radiographic dye allergy status; Z87.891 Personal history of nicotine dependence

== ENCOUNTER → 2018-11-21 | Outpatient (CLI) | payer BC ==
[~2018-11-21] MED LIST changes: +ALPH600C PO; +MELO15TA28 PO; +NAPR250T4 PO; +SOMA350T PO; +TOUJ1.2I SC
--- NOTE | 2018-11-21 16:13 | REP ---
LUMBAR SPINE, FIVE VIEWS: HISTORY: Back pain. COMPARISON: 07/19/2016 There is no acute fracture or subluxation. The L4-5 and L5-S1 intervertebral discs are decreased in height. Vacuum phenomenon is present. These findings are consistent with disc degeneration. Osteophytes are present on L4 and L5. The facet joints are normal in appearance. IMPRESSION: Degenerative change as described above. Electronically Signed by Juan Luis Noble MD 11/21/2018 04:14 P
== END ==
LOC: M WUC 14:44
PROVIDERS: ATTEND Nurse Practitioner Family
DX: M54.5 Low back pain (principal)

== ENCOUNTER 2019-03-26 10:50 | Emergency (ER) | payer BC ==
[~2019-03-26] VITALS: Ht 170.2 cm; Wt 143.2 kg
[2019-03-26] MEDS ORDERED: JANU25TA PO (11:07)
[2019-03-26 11:24] LABS: BASO # 0.1 10^3/uL (0.0-0.2); BASO % 0.9 % (0.0-1.0); EOS # 0.5 10^3/uL (0.0-0.50); EOS % 3.9 % (0.0-3.0); HEMATOCRIT 43.9 % (42.0-52.0); HEMOGLOBIN 14.7 g/dl (13.5-17.5); LYMPH # 1.7 10^3/uL (1.5-4.5); LYMPH % 14.3 % (24.0-44.0); MEAN CORPUSCULAR HEMOGLOBIN 28.8 pg (27.0-33.0); MEAN CORPUSCULAR HGB CONC 33.5 g/dl (32.0-36.5); MEAN CORPUSCULAR VOLUME 85.9 fl (80.0-96.0); MONO % 8.3 % (0.0-5.0); NEUTROPHILS # 8.4 10^3/uL (1.8-7.7); NEUTROPHILS % 70.1 % (36.0-66.0); PLATELET COUNT, AUTOMATED 225 10^3/uL (150-450); RED BLOOD COUNT 5.11 10^6/uL (4.30-6.10); WHITE BLOOD COUNT 11.9 10^3/uL (4.0-10.0)
[2019-03-26 11:42] LABS: INR 0.98; PROTHROMBIN TIME 13.1 SECONDS (12.1-14.4)
[2019-03-26 12:18] LABS: BLOOD UREA NITROGEN 14 MG/DL (7-18); CALCIUM LEVEL 8.9 MG/DL (8.5-10.1); CARBON DIOXIDE LEVEL 26 MEQ/L (21-32); CHLORIDE LEVEL 106 MEQ/L (98-107); CK-MB VALUE MASS < 1.0 NG/ML (<3.6); CPK CREATINE PHOSPHOKINASE 77 U/L (39-308); CREATININE FOR GFR 1.01 MG/DL (0.70-1.30); FREE T4 0.99 NG/DL (0.76-1.46); GLOMERULAR FILTRATION RATE > 60.0 (>56); GLUCOSE, FASTING 247 MG/DL (70-100); MAGNESIUM LEVEL 1.8 MG/DL (1.8-2.4); POTASSIUM SERUM 4.2 MEQ/L (3.5-5.1); SODIUM LEVEL 139 MEQ/L (136-145); TROPONIN I < 0.02 NG/ML (< 0.10)
[2019-03-26] MEDS ORDERED: NS 1,000 ML IV ONE (13:15)
[2019-03-26 13:24] LABS: ALBUMIN 3.4 GM/DL (3.2-5.2); ALT/SGPT 49 U/L (12-78); BILIRUBIN,DIRECT < 0.1 MG/DL (0.0-0.2); BILIRUBIN,TOTAL 0.3 MG/DL (0.2-1.0); TOTAL PROTEIN 7.4 GM/DL (6.4-8.2)
--- NOTE | 2019-03-26 14:03 | REP ---
CHEST, TWO VIEWS: Two views of the chest are performed and compared to prior study of 12/31/2017. There is no evidence of acute infiltrate. There are mild stable bibasilar chronic fibrotic changes. The heart is not enlarged. The mediastinal silhouette is unchanged. There are mild degenerative changes of the spine. IMPRESSION: No evidence of acute pulmonary disease. Electronically Signed by Guanaco Griggs MD 03/27/2019 11:15 A
[2019-03-26 16:41] VITALS: BP 139/63
--- NOTE | 2019-03-27 07:18 | ECGEPIP ---
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
--- NOTE | 2019-03-27 07:22 | ECGEPIP ---
[facility] - ED Test Date: 2019-03-26 Pat Name: RAINE YEBOAH Department: Room: - Gender: Male Lease Out Man: KHANG : 1970 Requested By: SUSANA Hinds Order Number: [id number] Reading MD: Sree Pena Measurements Intervals [place] Rate: 87 P: 254 MA: 125 QRS: 77 QRSD: 115 T: 53 QT: 360 QTc: 435 Interpretive Statements JUNCTIONAL RHYTHM WITH OCCASIONAL SUPRAVENTRICULAR PREMATURE COMPLEXES MODERATE INTRAVENTRICULAR CONDUCTION DELAY SIMILAR TO PRIOR ON SAME DATE Electronically Signed on 03-27-2019 7:21:34 EDT by Sree Pena
== END 2019-03-26 16:46 | disposition home or self-care (01) ==
LOC: EDBD 10:50 → M ED 10:50
DX: I95.1 Orthostatic hypotension (principal); E11.9 Type 2 diabetes mellitus without complications; J45.909 Unspecified asthma, uncomplicated; K21.9 Gastro-esophageal reflux disease without esophagitis; F33.9 Major depressive disorder, recurrent, unspecified; M54.81 Occipital neuralgia; D50.9 Iron deficiency anemia, unspecified; G47.33 Obstructive sleep apnea (adult) (pediatric); Z88.1 Allergy status to other antibiotic agents; Z88.8 Allergy status to other drugs, medicaments and biological substances; Z91.041 Radiographic dye allergy status

== ENCOUNTER → 2019-04-23 | Outpatient (CLI) | payer BC ==
[~2019-04-23] MED LIST changes: +JANU25TA PO
[2019-04-23 17:18] LABS: BLOOD UREA NITROGEN 10 MG/DL (7-18); CALCIUM LEVEL 9.2 MG/DL (8.5-10.1); CARBON DIOXIDE LEVEL 27 MEQ/L (21-32); CHLORIDE LEVEL 104 MEQ/L (98-107); CREATININE FOR GFR 0.87 MG/DL (0.70-1.30); GLOMERULAR FILTRATION RATE > 60.0 (>56); GLUCOSE, FASTING 236 MG/DL (70-100); IRON (FE) 82 UG/DL (65-175); POTASSIUM SERUM 4.3 MEQ/L (3.5-5.1); SODIUM LEVEL 139 MEQ/L (136-145)
[2019-04-23 17:34] LABS: BASO # 0.1 10^3/uL (0.0-0.2); BASO % 0.8 % (0.0-1.0); EOS # 0.4 10^3/uL (0.0-0.50); EOS % 3.7 % (0.0-3.0); HEMATOCRIT 45.7 % (42.0-52.0); LYMPH # 1.5 10^3/uL (1.5-4.5); LYMPH % 12.8 % (24.0-44.0); MEAN CORPUSCULAR HEMOGLOBIN 27.9 pg (27.0-33.0); MEAN CORPUSCULAR HGB CONC 32.8 g/dl (32.0-36.5); MEAN CORPUSCULAR VOLUME 85.1 fl (80.0-96.0); MONO # 0.8 10^3/uL (0.0-0.8); MONO % 7.2 % (0.0-5.0); NEUTROPHILS # 8.6 10^3/uL (1.8-7.7); PLATELET COUNT, AUTOMATED 251 10^3/uL (150-450); RED BLOOD COUNT 5.37 10^6/uL (4.30-6.10); WHITE BLOOD COUNT 11.7 10^3/uL (4.0-10.0)
== END ==
LOC: M WUC 11:39
PROVIDERS: ATTEND Nurse Practitioner Family
DX: E11.9 Type 2 diabetes mellitus without complications (principal); E61.1 Iron deficiency

== ENCOUNTER → 2019-06-23 | Outpatient (CLI) | payer BC ==
[2019-06-23 16:43] LABS: BASO # 0.1 10^3/uL (0.0-0.2); BASO % 0.8 % (0.0-1.0); EOS # 0.4 10^3/uL (0.0-0.50); EOS % 3.5 % (0.0-3.0); HEMATOCRIT 45.1 % (42.0-52.0); HEMOGLOBIN 14.9 g/dl (13.5-17.5); LYMPH # 1.8 10^3/uL (1.5-4.5); LYMPH % 14.1 % (24.0-44.0); MEAN CORPUSCULAR HEMOGLOBIN 28.9 pg (27.0-33.0); MEAN CORPUSCULAR VOLUME 87.4 fl (80.0-96.0); MONO # 0.9 10^3/uL (0.0-0.8); NEUTROPHILS # 9.1 10^3/uL (1.8-7.7); NEUTROPHILS % 72.4 % (36.0-66.0); PLATELET COUNT, AUTOMATED 232 10^3/uL (150-450); RED BLOOD COUNT 5.16 10^6/uL (4.30-6.10); WHITE BLOOD COUNT 12.5 10^3/uL (4.0-10.0)
[2019-06-23 16:54] LABS: ALBUMIN 3.5 GM/DL (3.2-5.2); ALT/SGPT 37 U/L (12-78); BILIRUBIN,TOTAL 0.3 MG/DL (0.2-1.0); BLOOD UREA NITROGEN 17 MG/DL (7-18); CALCIUM LEVEL 8.8 MG/DL (8.5-10.1); CARBON DIOXIDE LEVEL 27 MEQ/L (21-32); CHLORIDE LEVEL 106 MEQ/L (98-107); CREATININE FOR GFR 0.91 MG/DL (0.70-1.30); GLOMERULAR FILTRATION RATE > 60.0 (>56); GLUCOSE, FASTING 211 MG/DL (70-100); POTASSIUM SERUM 3.9 MEQ/L (3.5-5.1); SODIUM LEVEL 141 MEQ/L (136-145); THYROID STIMULATING HORMONE 0.625 uIU/ML (0.358-3.740); TOTAL PROTEIN 6.6 GM/DL (6.4-8.2)
[2019-06-23 17:13] LABS: HEMOGLOBIN A1c 9.9 %
== END ==
LOC: M WUC 14:08
PROVIDERS: ATTEND Surgery
DX: Z01.812 Encounter for preprocedural laboratory examination (principal)

== ENCOUNTER 2019-07-03 16:54 | Emergency (ER) | payer BC ==
[~2019-07-03] VITALS: Ht 167.6 cm; Wt 139.6 kg
[2019-07-03] MEDS ORDERED: FERR325T16 PO (17:29)
[2019-07-03] MEDS ORDERED: NS 1,000 ML IV ONE (18:15)
[2019-07-03] MEDS ORDERED: MORPHINE 4 MG/ML 1ML VIAL/SYRINGE (J2270) IV ONE (18:15)
[2019-07-03] MEDS ORDERED: ONDANSETRON 4MG/2ML VIAL (J2405) IV ONE (18:15)
[2019-07-03 18:27] LABS: BASO # 0.1 10^3/uL (0.0-0.2); BASO % 0.8 % (0.0-1.0); EOS # 0.5 10^3/uL (0.0-0.50); EOS % 3.6 % (0.0-3.0); HEMATOCRIT 43.3 % (42.0-52.0); HEMOGLOBIN 14.6 g/dl (13.5-17.5); LYMPH # 2.1 10^3/uL (1.5-4.5); LYMPH % 16.5 % (24.0-44.0); MEAN CORPUSCULAR HEMOGLOBIN 28.8 pg (27.0-33.0); MEAN CORPUSCULAR HGB CONC 33.7 g/dl (32.0-36.5); MEAN CORPUSCULAR VOLUME 85.4 fl (80.0-96.0); NEUTROPHILS # 8.6 10^3/uL (1.8-7.7); PLATELET COUNT, AUTOMATED 243 10^3/uL (150-450); RED BLOOD COUNT 5.07 10^6/uL (4.30-6.10); WHITE BLOOD COUNT 12.5 10^3/uL (4.0-10.0)
[2019-07-03 19:02] LABS: ALBUMIN 3.4 GM/DL (3.2-5.2); ALT/SGPT 38 U/L (12-78); AMYLASE 307 U/L (25-115); BILIRUBIN,DIRECT < 0.1 MG/DL (0.0-0.2); BILIRUBIN,TOTAL 0.2 MG/DL (0.2-1.0); BLOOD UREA NITROGEN 14 MG/DL (7-18); CARBON DIOXIDE LEVEL 30 MEQ/L (21-32); CHLORIDE LEVEL 108 MEQ/L (98-107); CREATININE FOR GFR 0.92 MG/DL (0.70-1.30); GLOMERULAR FILTRATION RATE > 60.0 (>56); GLUCOSE, FASTING 179 MG/DL (70-100); LIPASE 131 U/L (73-393); POTASSIUM SERUM 4.1 MEQ/L (3.5-5.1); SODIUM LEVEL 142 MEQ/L (136-145); TOTAL PROTEIN 6.4 GM/DL (6.4-8.2)
--- NOTE | 2019-07-03 20:32 | REPVR ---
EXAM: CT Abdomen and Pelvis Without Contrast EXAM DATE/TIME: 07/03/2019 7:16 PM CLINICAL HISTORY: 49 years old, male; Abdominal pain; Generalized; Additional info: Central abd pain TECHNIQUE: Imaging protocol: Computed tomography of the abdomen and pelvis without contrast. Radiation optimization: All CT scans at this facility use at least one of these dose optimization techniques: automated exposure control; mA and/or kV adjustment per patient size (includes targeted exams where dose is matched to clinical indication); or iterative reconstruction. COMPARISON: CT ABD PELVIS W/O CONTRAST 03/12/2013 1:23 PM FINDINGS: Lungs: Clear appearing lungs bases. Heart: Normal-sized heart and no pericardial effusion. Liver: Normal appearing liver. Gallbladder and bile ducts: Partially contracted gallbladder. Pancreas: Normal sized pancreas. Spleen: Normal spleen. Adrenals: Normal adrenal glands. Kidneys and ureters: There is a 2 mm calcified stone lower pole left kidney/nonobstructive. There is no evidence of hydronephrosis. Stomach and bowel: There is no evidence of bowel obstruction. There is scattered diverticula but no evidence of diverticulitis Appendix: The cecum is in the right pelvis and the appendix appears within the range of normal. Intraperitoneal space: Normal. No free air. No significant fluid collection. Vasculature: There is crescent calcification along the margins of the aorta. The aorta is normal in size. There is calcification consistent with mild atherosclerotic changes. Lymph nodes: There is no evidence of lymphadenopathy. Bladder: There is only a small amount of urine in the urinary bladder. Reproductive: Normal size prostate. Bones/joints: There is no evidence of bony abnormality. There is moderate broad-based disc protrusion L4-L5 and L5-S1. There is sclerosis of the endplates and narrowing of the disc space L5-S1 with moderate posterior osteophyte formation and severe L5 neural foramen narrowing. Soft tissues: Unremarkable. IMPRESSION: 1. No evidence of bowel obstruction. 2. No evidence of inflammation. Electronically signed by: Yves Connell On 07/03/2019 20:30:16 PM
[2019-07-03] MEDS ORDERED: CARA1TAB6 PO (21:15)
[2019-07-03 21:20] VITALS: BP 123/68
== END 2019-07-03 21:22 | disposition home or self-care (01) ==
LOC: M ED 16:54
DX: K27.3 Acute peptic ulcer, site unspecified, without hemorrhage or perforation (principal); G44.209 Tension-type headache, unspecified, not intractable; E78.00 Pure hypercholesterolemia, unspecified; J45.909 Unspecified asthma, uncomplicated; J44.9 Chronic obstructive pulmonary disease, unspecified; G47.30 Sleep apnea, unspecified; K21.9 Gastro-esophageal reflux disease without esophagitis; K44.9 Diaphragmatic hernia without obstruction or gangrene; E11.9 Type 2 diabetes mellitus without complications; Z87.19 Personal history of other diseases of the digestive system; M54.9 Dorsalgia, unspecified; I49.2 Junctional premature depolarization; F99 Mental disorder, not otherwise specified; Z79.899 Other long term (current) drug therapy; Z79.82 Long term (current) use of aspirin; Z79.4 Long term (current) use of insulin
CPT/HCPCS: 74176; 80048; 80076; 81001; 82150; 83690; 85025; 96361; 96374; 96375; 99284; J2270; J2405

== ENCOUNTER → 2019-08-22 | Outpatient (CLI) | payer BC ==
[~2019-08-22] MED LIST changes: +CARA1TAB6 PO; +FERR325T16 PO; -OMEP40CA2 PO; +OMEP40CA97 PO
[2019-08-22 19:13] LABS: BASO # 0.1 10^3/uL (0.0-0.2); BASO % 0.7 % (0.0-1.0); EOS # 0.7 10^3/uL (0.0-0.5); EOS % 7.7 % (0.0-3.0); HEMATOCRIT 44.5 % (42.0-52.0); HEMOGLOBIN 14.2 g/dl (13.5-17.5); LYMPH # 1.4 10^3/uL (1.5-5.0); LYMPH % 15.5 % (24.0-44.0); MEAN CORPUSCULAR HEMOGLOBIN 28.1 pg (27.0-33.0); MEAN CORPUSCULAR HGB CONC 31.9 g/dl (32.0-36.5); MEAN CORPUSCULAR VOLUME 87.9 fl (80.0-96.0); MONO # 0.8 10^3/uL (0.0-0.8); MONO % 8.7 % (0.0-5.0); NEUTROPHILS # 6.1 10^3/uL (1.5-8.5); PLATELET COUNT, AUTOMATED 195 10^3/uL (150-450); RED BLOOD COUNT 5.06 10^6/uL (4.30-6.10); WHITE BLOOD COUNT 9.1 10^3/uL (4.0-10.0)
[2019-08-22 19:17] LABS: HEMATOCRIT 44.5 % (42.0-52.0)
[2019-08-22 19:18] LABS: ALBUMIN 3.4 GM/DL (3.2-5.2); ALT/SGPT 53 U/L (12-78); BILIRUBIN,TOTAL 0.3 MG/DL (0.2-1.0); BLOOD UREA NITROGEN 9 MG/DL (7-18); CARBON DIOXIDE LEVEL 29 MEQ/L (21-32); CHLORIDE LEVEL 106 MEQ/L (98-107); CREATININE FOR GFR 0.85 MG/DL (0.70-1.30); FERRITIN 935 NG/ML (26-388); GLOMERULAR FILTRATION RATE > 60.0 (>56); GLUCOSE, FASTING 152 MG/DL (70-100); IRON (FE) 57 UG/DL (65-175); MAGNESIUM LEVEL 1.8 MG/DL (1.8-2.4); PHOSPHORUS LEVEL 4.2 MG/DL (2.5-4.9); POTASSIUM SERUM 4.2 MEQ/L (3.5-5.1); SODIUM LEVEL 141 MEQ/L (136-145); TOTAL IRON BINDING CAPACITY 259 UG/DL (250-450); TOTAL PROTEIN 6.4 GM/DL (6.4-8.2)
[2019-08-22 19:26] LABS: HEMOGLOBIN A1c 8.6 %
[2019-08-22 19:46] LABS: TOTAL 25(OH) VITAMIN D 21.4 NG/ML (30.0-100.0)
[2019-08-22 19:47] LABS: VITAMIN B12 LEVEL 1321 PG/ML (247-911)
== END ==
LOC: M WUC 13:50
PROVIDERS: ATTEND Surgery
DX: K91.2 Postsurgical malabsorption, not elsewhere classified (principal); E55.9 Vitamin D deficiency, unspecified; Z98.84 Bariatric surgery status

== ENCOUNTER 2019-10-01 09:28 | Emergency (ER) | payer BC ==
[~2019-10-01] VITALS: Ht 167.6 cm; Wt 119.6 kg
[2019-10-01] MEDS ORDERED: GLYCERIN ADULT SUPP PR ONE (10:00)
[2019-10-01] MEDS ORDERED: NS 1,000 ML IV ONE (10:00)
[2019-10-01] MEDS ORDERED: vitamin B 12 (10:07)
[2019-10-01] MEDS ORDERED: OMEP-221 OR (10:07)
[2019-10-01] MEDS ORDERED: calcium citrate (10:07)
[2019-10-01 10:41] LABS: BASO # 0.1 10^3/uL (0.0-0.2); BASO % 0.6 % (0.0-1.0); EOS # 0.6 10^3/uL (0.0-0.5); EOS % 5.2 % (0.0-3.0); HEMATOCRIT 43.2 % (42.0-52.0); HEMOGLOBIN 14.4 g/dl (13.5-17.5); LYMPH # 1.4 10^3/uL (1.5-5.0); LYMPH % 13.1 % (24.0-44.0); MEAN CORPUSCULAR HEMOGLOBIN 29.1 pg (27.0-33.0); MEAN CORPUSCULAR HGB CONC 33.3 g/dl (32.0-36.5); MEAN CORPUSCULAR VOLUME 87.3 fl (80.0-96.0); MONO # 0.9 10^3/uL (0.0-0.8); MONO % 8.1 % (0.0-5.0); NEUTROPHILS # 7.6 10^3/uL (1.5-8.5); NEUTROPHILS % 72.1 % (36.0-66.0); PLATELET COUNT, AUTOMATED 251 10^3/uL (150-450); RED BLOOD COUNT 4.95 10^6/uL (4.30-6.10); WHITE BLOOD COUNT 10.5 10^3/uL (4.0-10.0)
[2019-10-01 11:08] LABS: ALBUMIN 3.4 GM/DL (3.2-5.2); ALT/SGPT 43 U/L (12-78); BILIRUBIN,DIRECT < 0.1 MG/DL (0.0-0.2); BILIRUBIN,TOTAL 0.3 MG/DL (0.2-1.0); LIPASE 111 U/L (73-393); TOTAL PROTEIN 6.6 GM/DL (6.4-8.2)
[2019-10-01] MEDS ORDERED: MIRA3350 PO (11:21)
[2019-10-01 12:25] VITALS: BP 146/89
== END 2019-10-01 12:31 | disposition home or self-care (01) ==
LOC: M ED 09:28
DX: K59.00 Constipation, unspecified (principal); E11.9 Type 2 diabetes mellitus without complications; J45.909 Unspecified asthma, uncomplicated; J44.9 Chronic obstructive pulmonary disease, unspecified; K21.9 Gastro-esophageal reflux disease without esophagitis; K57.32 Diverticulitis of large intestine without perforation or abscess without bleeding; K81.0 Acute cholecystitis; Z98.84 Bariatric surgery status; Z79.4 Long term (current) use of insulin; Z79.899 Other long term (current) drug therapy; Z91.041 Radiographic dye allergy status; Z88.1 Allergy status to other antibiotic agents; Z88.8 Allergy status to other drugs, medicaments and biological substances

== ENCOUNTER → 2019-11-28 | Outpatient (CLI) | payer BC ==
[~2019-11-28] MED LIST changes: +MIRA3350 PO; +OMEP-221 OR; +calcium citrate; +vitamin B 12
[2019-11-28 12:21] LABS: HEMATOCRIT 44.1 % (42.0-52.0); HEMOGLOBIN 14.6 g/dl (13.5-17.5)
== END ==
LOC: M WUC 09:34
PROVIDERS: ATTEND Nurse Practitioner Family
DX: E29.1 Testicular hypofunction (principal)
CPT/HCPCS: 36415; 84403; 85014; 85018; G0103

== ENCOUNTER → 2020-01-14 | Outpatient (CLI) | payer BC ==
[2020-01-14 13:47] LABS: HEMATOCRIT 45.9 % (42.0-52.0); HEMOGLOBIN 14.8 g/dl (13.5-17.5)
== END ==
LOC: M WUC 08:47
PROVIDERS: ATTEND Nurse Practitioner Family
DX: E29.1 Testicular hypofunction (principal)

== ENCOUNTER 2020-04-06 15:52 | Emergency (ER) | payer BC ==
[~2020-04-06 15:52] MED LIST changes: -ASPI81TA85 PO; +ASPI81TA86 PO; -GLYB5TA PO; +GLYB5TAB6 PO
[2020-04-06] MEDS ORDERED: TOUJ1.2I SC (16:31)
[2020-04-06 16:39] LABS: BASO # 0.1 10^3/uL (0.0-0.2); BASO % 0.6 % (0.0-1.0); EOS # 0.5 10^3/uL (0.0-0.5); HEMATOCRIT 45.9 % (42.0-52.0); HEMOGLOBIN 14.9 g/dl (13.5-17.5); LYMPH # 1.8 10^3/uL (1.5-5.0); LYMPH % 16.3 % (24.0-44.0); MEAN CORPUSCULAR HEMOGLOBIN 27.6 pg (27.0-33.0); MEAN CORPUSCULAR HGB CONC 32.5 g/dl (32.0-36.5); MEAN CORPUSCULAR VOLUME 85.2 fl (80.0-96.0); MONO # 0.7 10^3/uL (0.0-0.8); MONO % 5.8 % (0.0-5.0); NEUTROPHILS # 8.1 10^3/uL (1.5-8.5); NEUTROPHILS % 72.7 % (36.0-66.0); PLATELET COUNT, AUTOMATED 250 10^3/uL (150-450); RED BLOOD COUNT 5.39 10^6/uL (4.30-6.10); WHITE BLOOD COUNT 11.1 10^3/uL (4.0-10.0)
[2020-04-06 17:19] LABS: ALBUMIN 3.5 GM/DL (3.2-5.2); ALT/SGPT 29 U/L (12-78); BILIRUBIN,DIRECT < 0.1 MG/DL (0.0-0.2); BILIRUBIN,TOTAL 0.2 MG/DL (0.2-1.0); BLOOD UREA NITROGEN 14 MG/DL (7-18); CALCIUM LEVEL 8.8 MG/DL (8.5-10.1); CARBON DIOXIDE LEVEL 27 MEQ/L (21-32); CHLORIDE LEVEL 107 MEQ/L (98-107); CK-MB VALUE MASS 1.4 NG/ML (<3.6); CPK CREATINE PHOSPHOKINASE 74 U/L (39-308); CREATININE FOR GFR 1.21 MG/DL (0.70-1.30); GLOMERULAR FILTRATION RATE > 60.0 (>56); GLUCOSE, FASTING 199 MG/DL (70-100); LIPASE 88 U/L (73-393); MB/CK RELATIVE INDEX 1.89 (< OR =4); NT-PRO BNP 18 PG/ML (<125); POTASSIUM SERUM 3.8 MEQ/L (3.5-5.1); SODIUM LEVEL 141 MEQ/L (136-145); THYROID STIMULATING HORMONE 0.761 uIU/ML (0.358-3.740); TOTAL PROTEIN 6.4 GM/DL (6.4-8.2)
--- NOTE | 2020-04-06 19:00 | ECGEPIP ---
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
[2020-04-06 22:15] VITALS: BP 154/93
--- NOTE | 2020-04-06 23:24 | REP ---
REASON FOR EXAM: Chest pain. COMPARISON: Multiple, the latest 03/26/2019. FINDINGS: The technique utilized in obtaining the radiograph has magnified the cardiac silhouette and accentuated the interstitial markings. The superior mediastinal structures are midline. The cardiac silhouette is unremarkable in size, shape, and position. The diaphragmatic surfaces of the lungs are regular, and the costophrenic angles are clear. The pulmonary chen are clear. The imaged osseous structures are intact. IMPRESSION: There is no acute cardiopulmonary disease. Electronically Signed by Bill Henderson DO 04/07/2020 11:21 A
--- NOTE | 2020-04-07 06:42 | ECGEPIP ---
[facility] - ED Test Date: 2020-04-06 Pat Name: RAINE YEBOAH Department: Room: - Gender: Male Topographical Drafter: estefania : 1970 Requested By: SUSANA LADD Order Number: [id number] Reading MD: Marcos Matthews Measurements Intervals [place] Rate: 64 P: 255 [place]: 123 QRS: 68 QRSD: 121 T: 56 QT: 386 QTc: 399 Interpretive Statements JUNCTIONAL RHYTHM MODERATE INTRAVENTRICULAR CONDUCTION DELAY ABNORMAL RHYTHM ECG NONSPECIFIC ST T WAVE CHANGES 04/06/20 RHYTHM CHANGE RATE DECREASED NONSPECIFIC ST T WAVE CHANGES CLINICAL CORRELATION ADVISED Electronically Signed on 04-07-2020 6:42:19 EDT by Marcos Matthews
== END 2020-04-06 22:28 | disposition home or self-care (01) ==
LOC: M ED 15:52 → EDBD 15:52 → M ED 22:28
DX: R07.9 Chest pain, unspecified (principal); E11.9 Type 2 diabetes mellitus without complications; G51.0 Bell's palsy; J44.9 Chronic obstructive pulmonary disease, unspecified; K85.90 Acute pancreatitis without necrosis or infection, unspecified; Z79.4 Long term (current) use of insulin; Z79.51 Long term (current) use of inhaled steroids; Z79.899 Other long term (current) drug therapy; Z88.1 Allergy status to other antibiotic agents; Z88.8 Allergy status to other drugs, medicaments and biological substances; Z91.041 Radiographic dye allergy status; Z98.84 Bariatric surgery status

== ENCOUNTER → 2020-04-26 | Outpatient (CLI) | payer BC ==
[~2020-04-26] MED LIST changes: +ASPI81TA85 PO; -ASPI81TA86 PO; +GLYB5TA PO; -GLYB5TAB6 PO
[2020-04-26 16:30] LABS: BASO # 0.1 10^3/uL (0.0-0.2); BASO % 0.8 % (0.0-1.0); EOS # 0.5 10^3/uL (0.0-0.5); EOS % 4.8 % (0.0-3.0); HEMATOCRIT 46.8 % (42.0-52.0); HEMOGLOBIN 15.2 g/dl (13.5-17.5); LYMPH # 2.1 10^3/uL (1.5-5.0); LYMPH % 21.1 % (24.0-44.0); MEAN CORPUSCULAR HEMOGLOBIN 27.6 pg (27.0-33.0); MEAN CORPUSCULAR HGB CONC 32.5 g/dl (32.0-36.5); MEAN CORPUSCULAR VOLUME 84.9 fl (80.0-96.0); MONO # 0.8 10^3/uL (0.0-0.8); MONO % 8.4 % (0.0-5.0); NEUTROPHILS # 6.4 10^3/uL (1.5-8.5); NEUTROPHILS % 64.4 % (36.0-66.0); PLATELET COUNT, AUTOMATED 264 10^3/uL (150-450); RED BLOOD COUNT 5.51 10^6/uL (4.30-6.10); WHITE BLOOD COUNT 9.9 10^3/uL (4.0-10.0)
[2020-04-26 16:48] LABS: HEMOGLOBIN A1c 7.3 %
[2020-04-26 17:05] LABS: ALBUMIN 3.6 GM/DL (3.2-5.2); ALT/SGPT 31 U/L (12-78); BILIRUBIN,TOTAL 0.4 MG/DL (0.2-1.0); BLOOD UREA NITROGEN 13 MG/DL (7-18); CARBON DIOXIDE LEVEL 30 MEQ/L (21-32); CHLORIDE LEVEL 105 MEQ/L (98-107); CREATININE FOR GFR 0.93 MG/DL (0.70-1.30); FERRITIN 558 NG/ML (26-388); GLOMERULAR FILTRATION RATE > 60.0 (>56); GLUCOSE, FASTING 85 MG/DL (70-100); IRON (FE) 48 UG/DL (65-175); PHOSPHORUS LEVEL 4.3 MG/DL (2.5-4.9); SODIUM LEVEL 141 MEQ/L (136-145); TOTAL IRON BINDING CAPACITY 267 UG/DL (250-450); TOTAL PROTEIN 6.7 GM/DL (6.4-8.2)
[2020-04-26 17:12] LABS: TOTAL 25(OH) VITAMIN D 39.6 NG/ML (30.0-100.0); VITAMIN B12 LEVEL 1388 PG/ML
[2020-04-26 17:13] LABS: FOLATE 18.6 NG/ML
== END ==
LOC: M WUC 14:35
PROVIDERS: ATTEND Physician Assistant
DX: K91.2 Postsurgical malabsorption, not elsewhere classified (principal); Z98.84 Bariatric surgery status; E55.9 Vitamin D deficiency, unspecified

== ENCOUNTER 2020-07-16 11:22 | Emergency (ER) | payer BC ==
[~2020-07-16] VITALS: Ht 170.2 cm; Wt 95.5 kg
[~2020-07-16 11:22] MED LIST changes: -ASPI81TA85 PO; +ASPI81TA86 PO
[2020-07-16] MEDS ORDERED: TADA5TAB PO (11:39)
[2020-07-16] MEDS ORDERED: THIA100TA PO (11:39)
[2020-07-16] MEDS ORDERED: CALC250T PO (11:39)
[2020-07-16] MEDS ORDERED: TEST200I14 (11:39)
[2020-07-16 12:02] LABS: BASO % 0.4 % (0.0-1.0); EOS # 0.2 10^3/uL (0.0-0.5); EOS % 2.3 % (0.0-3.0); HEMATOCRIT 41.5 % (42.0-52.0); LYMPH # 1.2 10^3/uL (1.5-5.0); LYMPH % 12.3 % (24.0-44.0); MEAN CORPUSCULAR HEMOGLOBIN 28.6 pg (27.0-33.0); MEAN CORPUSCULAR HGB CONC 33.7 g/dl (32.0-36.5); MEAN CORPUSCULAR VOLUME 84.9 fl (80.0-96.0); MONO # 0.8 10^3/uL (0.0-0.8); MONO % 7.8 % (0.0-5.0); NEUTROPHILS # 7.6 10^3/uL (1.5-8.5); NEUTROPHILS % 76.8 % (36.0-66.0); PLATELET COUNT, AUTOMATED 233 10^3/uL (150-450); RED BLOOD COUNT 4.89 10^6/uL (4.30-6.10); WHITE BLOOD COUNT 9.9 10^3/uL (4.0-10.0)
--- NOTE | 2020-07-16 12:40 | REPVR ---
PROCEDURE INFORMATION: Exam: XR Chest, 1 View Exam date and time: 07/16/2020 12:22 PM Age: 50 years old Clinical indication: Chest pain TECHNIQUE: Imaging protocol: XR of the chest Views: 1 view. COMPARISON: CR PORTABLE CHEST X-RAY 04/06/2020 4:40 PM FINDINGS: Lungs: Unremarkable. No consolidation. Pleural space: Unremarkable. No pleural effusion. No pneumothorax. Heart/Mediastinum: Unremarkable. No cardiomegaly. Bones/joints: Left glenohumeral joint DJD. IMPRESSION: No acute cardiopulmonary abnormality. Electronically signed by: Jania Chen On 07/16/2020 12:40:14 PM
[2020-07-16 13:08] LABS: ALBUMIN 3.7 GM/DL (3.2-5.2); ALT/SGPT 39 U/L (12-78); BILIRUBIN,DIRECT < 0.1 MG/DL (0.0-0.2); BILIRUBIN,TOTAL 0.4 MG/DL (0.2-1.0); BLOOD UREA NITROGEN 12 MG/DL (7-18); CARBON DIOXIDE LEVEL 27 MEQ/L (21-32); CHLORIDE LEVEL 108 MEQ/L (98-107); CREATININE FOR GFR 0.87 MG/DL (0.70-1.30); GLOMERULAR FILTRATION RATE > 60.0 (>56); GLUCOSE, FASTING 168 MG/DL (70-100); LIPASE 87 U/L (73-393); NT-PRO BNP 12 PG/ML (<125); SODIUM LEVEL 139 MEQ/L (136-145); TOTAL PROTEIN 6.6 GM/DL (6.4-8.2)
[2020-07-16 18:00] VITALS: BP 112/67
--- NOTE | 2020-07-20 16:50 | ECGEPIP ---
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
--- NOTE | 2020-07-21 21:17 | ECGEPIP ---
[facility] - ED Test Date: 2020-07-16 Pat Name: RAINE YEBOAH Department: Room: - Gender: Male Excellence Coach: FALLON : 1970 Requested By: Sol Hines Order Number: [id number] Reading MD: David Wilkerson Measurements Intervals [place] Rate: 79 P: 269 CT: 132 QRS: 77 QRSD: 110 T: 50 QT: 356 QTc: 409 Interpretive Statements JUNCTIONAL RHYTHM WITH OCCASIONAL SUPRAVENTRICULAR PREMATURE COMPLEXES ABNORMAL RHYTHM ECG NO PREVIOUS SEE SCANNED DOWNTIME REPORT
== END 2020-07-16 18:19 | disposition home or self-care (01) ==
LOC: M ED 11:22 → EDBD 11:22 → M ED 18:19
DX: R00.2 Palpitations (principal); R94.31 Abnormal electrocardiogram [ECG] [EKG]; J45.909 Unspecified asthma, uncomplicated; J44.9 Chronic obstructive pulmonary disease, unspecified; F17.210 Nicotine dependence, cigarettes, uncomplicated; Z79.899 Other long term (current) drug therapy; Z79.4 Long term (current) use of insulin; Z79.890 Hormone replacement therapy; Z91.041 Radiographic dye allergy status; Z88.8 Allergy status to other drugs, medicaments and biological substances; Z88.1 Allergy status to other antibiotic agents; Z98.0 Intestinal bypass and anastomosis status; Z82.49 Family history of ischemic heart disease and other diseases of the circulatory system; Z83.3 Family history of diabetes mellitus

== ENCOUNTER → 2020-09-17 | Outpatient (CLI) | payer BC ==
[~2020-09-17] MED LIST changes: +CALC250T PO; +TADA5TAB PO; +TEST200I14; +THIA100TA PO
[2020-09-17 16:24] LABS: HEMATOCRIT 45.2 % (42.0-52.0); HEMOGLOBIN 14.4 g/dl (13.5-17.5); MEAN CORPUSCULAR HEMOGLOBIN 28.3 pg (27.0-33.0); MEAN CORPUSCULAR HGB CONC 31.9 g/dl (32.0-36.5); MEAN CORPUSCULAR VOLUME 88.8 fl (80.0-96.0); PLATELET COUNT, AUTOMATED 267 10^3/uL (150-450); RED BLOOD COUNT 5.09 10^6/uL (4.30-6.10); WHITE BLOOD COUNT 12.5 10^3/uL (4.0-10.0)
[2020-09-17 16:59] LABS: ALBUMIN 3.8 GM/DL (3.2-5.2); ALT/SGPT 29 U/L (12-78); BILIRUBIN,TOTAL 0.5 MG/DL (0.2-1.0); BLOOD UREA NITROGEN 10 MG/DL (7-18); CALCIUM LEVEL 9.1 MG/DL (8.5-10.1); CARBON DIOXIDE LEVEL 31 MEQ/L (21-32); CHLORIDE LEVEL 106 MEQ/L (98-107); GLOMERULAR FILTRATION RATE > 60.0 (>56); GLUCOSE, FASTING 98 MG/DL (70-100); POTASSIUM SERUM 3.8 MEQ/L (3.5-5.1); PROSTATIC SPECIFIC AG MONITOR 0.41 NG/ML (< 4.00); SODIUM LEVEL 143 MEQ/L (136-145); TESTOSTERONE 993 NG/DL (241-827); TOTAL PROTEIN 6.7 GM/DL (6.4-8.2)
== END ==
LOC: M WUC 12:26
PROVIDERS: ATTEND Family Medicine
DX: Z51.81 Encounter for therapeutic drug level monitoring (principal); Z79.899 Other long term (current) drug therapy

== ENCOUNTER → 2020-11-04 | Outpatient (CLI) | payer BC ==
[2020-11-04 12:06] LABS: BASO # 0.1 10^3/uL (0.0-0.2); BASO % 0.7 % (0.0-1.0); EOS # 0.5 10^3/uL (0.0-0.5); EOS % 5.7 % (0.0-3.0); HEMATOCRIT 46.3 % (42.0-52.0); HEMOGLOBIN 14.9 g/dl (13.5-17.5); LYMPH # 1.5 10^3/uL (1.5-5.0); LYMPH % 16.9 % (24.0-44.0); MEAN CORPUSCULAR HEMOGLOBIN 28.1 pg (27.0-33.0); MEAN CORPUSCULAR HGB CONC 32.2 g/dl (32.0-36.5); MEAN CORPUSCULAR VOLUME 87.4 fl (80.0-96.0); MONO # 0.7 10^3/uL (0.0-0.8); MONO % 7.9 % (0.0-5.0); NEUTROPHILS # 5.9 10^3/uL (1.5-8.5); NEUTROPHILS % 68.3 % (36.0-66.0); PLATELET COUNT, AUTOMATED 212 10^3/uL (150-450); WHITE BLOOD COUNT 8.6 10^3/uL (4.0-10.0)
[2020-11-04 12:30] LABS: ALBUMIN 3.8 GM/DL (3.2-5.2); ALT/SGPT 30 U/L (12-78); BILIRUBIN,TOTAL 0.5 MG/DL (0.2-1.0); BLOOD UREA NITROGEN 13 MG/DL (7-18); CALCIUM LEVEL 9.1 MG/DL (8.5-10.1); CARBON DIOXIDE LEVEL 31 MEQ/L (21-32); CHLORIDE LEVEL 105 MEQ/L (98-107); CREATININE FOR GFR 0.92 MG/DL (0.70-1.30); GLOMERULAR FILTRATION RATE > 60.0 (>56); GLUCOSE, FASTING 116 MG/DL (70-100); POTASSIUM SERUM 4.2 MEQ/L (3.5-5.1); RHEUMATOID FACTOR QUANT < 10.0 IU/ML (<15.0); SODIUM LEVEL 140 MEQ/L (136-145); TOTAL PROTEIN 6.7 GM/DL (6.4-8.2)
[2020-11-04 12:34] LABS: ERYTHROCYTE SEDIMENTATION RATE 3 mm/hr (0-20)
[2020-11-09 00:10] LABS: CYCLIC CITRULLINATED PEPTIDE 9 units (0-19)
== END ==
LOC: M WUC 10:16
PROVIDERS: ATTEND Family Medicine
DX: M06.4 Inflammatory polyarthropathy (principal); E11.9 Type 2 diabetes mellitus without complications

== ENCOUNTER → 2021-02-14 | Outpatient (CLI) | payer BC ==
[~2021-02-14] MED LIST changes: +FERR324T21 PO; -FERR325T16 PO; +GLYB2.5T7 PO; -GLYB25TA PO; -GLYB5TA PO; +GLYB5TAB6 PO; +NAPR-849 PO; -NAPR250T4 PO
[2021-02-14 12:40] LABS: BASO # 0.1 10^3/uL (0.0-0.2); BASO % 0.9 % (0.0-1.0); EOS # 0.6 10^3/uL (0.0-0.5); EOS % 6.4 % (0.0-3.0); HEMATOCRIT 42.7 % (42.0-52.0); HEMOGLOBIN 14.2 g/dl (13.5-17.5); LYMPH % 20.6 % (24.0-44.0); MEAN CORPUSCULAR HEMOGLOBIN 28.6 pg (27.0-33.0); MEAN CORPUSCULAR HGB CONC 33.3 g/dl (32.0-36.5); MEAN CORPUSCULAR VOLUME 86.1 fl (80.0-96.0); MONO # 0.8 10^3/uL (0.0-0.8); MONO % 8.2 % (2.0-8.0); NEUTROPHILS # 6.2 10^3/uL (1.5-8.5); NEUTROPHILS % 63.4 % (36.0-66.0); PLATELET COUNT, AUTOMATED 252 10^3/uL (150-450); RED BLOOD COUNT 4.96 10^6/uL (4.30-6.10); WHITE BLOOD COUNT 9.7 10^3/uL (4.0-10.0)
[2021-02-14 12:48] LABS: HEMOGLOBIN A1c 6.6 %
[2021-02-14 13:08] LABS: ALBUMIN 3.9 GM/DL (3.2-5.2); ALT/SGPT 41 U/L (12-78); BILIRUBIN,TOTAL 0.5 MG/DL (0.2-1.0); BLOOD UREA NITROGEN 18 MG/DL (7-18); CALCIUM LEVEL 9.2 MG/DL (8.5-10.1); CARBON DIOXIDE LEVEL 26 MEQ/L (21-32); CHLORIDE LEVEL 111 MEQ/L (98-107); FERRITIN 692 NG/ML (26-388); FOLATE 22.6 NG/ML (>5.4); GLOMERULAR FILTRATION RATE > 60.0 (>56); GLUCOSE, FASTING 108 MG/DL (70-100); IRON (FE) 94 UG/DL (65-175); MAGNESIUM LEVEL 2.1 MG/DL (1.8-2.4); PERCENT SATURATION 38.1 % (19.7-50.0); PHOSPHORUS LEVEL 3.5 MG/DL (2.5-4.9); POTASSIUM SERUM 3.8 MEQ/L (3.5-5.1); SODIUM LEVEL 141 MEQ/L (136-145); TOTAL 25(OH) VITAMIN D 38.9 NG/ML (30.0-100.0); TOTAL IRON BINDING CAPACITY 247 UG/DL (250-450); TOTAL PROTEIN 6.6 GM/DL (6.4-8.2); VITAMIN B12 LEVEL > 2000 PG/ML (247-911)
== END ==
LOC: M WUC 09:48
PROVIDERS: ATTEND Physician Assistant
DX: K91.2 Postsurgical malabsorption, not elsewhere classified (principal); Z98.84 Bariatric surgery status; E55.9 Vitamin D deficiency, unspecified; Z86.39 Personal history of other endocrine, nutritional and metabolic disease

== ENCOUNTER → 2021-03-08 | Outpatient (CLI) | payer BC ==
--- NOTE | 2021-03-08 15:21 | REP ---
INDICATION: DISC DISPLACEMENT. COMPARISON: Comparison is made with abdominal CT imaging from July 03, 2019.. TECHNIQUE: Sagittal and axial T1 and T2-weighted scans are acquired in the usual fashion with and without fat saturation. Sequences include spin echo, turbo spin-echo, and STIR imaging sequences. FINDINGS: There is a fluid fluid level in what appears to be a descending duodenal diverticulum in the right upper abdomen. Cortical and medullary bone signal intensity are normal in the lumbar spine. Vertebral body heights are preserved. The tip of the conus medullaris is normal in position and appearance at the T12-L1 level. Axial and sagittal images at L1-2 and L2-3 show no evidence of disc protrusion, spinal stenosis, or foraminal narrowing. At L3-4, there is a broad-based focal disc protrusion compressing the ventral margin of the thecal sac mildly. No spinal stenosis is seen. The disc protrusion extends cranially a few mm over the posterior cortex of the L3 vertebral body. No neural foraminal narrowing is seen. At L4-5, there is a broad-based focal disc protrusion as well extending caudally for 3-4 mm over the posterior aspect of L5. This indents the ventral margin of the thecal sac and there is mild central canal stenosis at L4-5. The midline AP dimension of the thecal sac at 4 5 is 7.8 mm. There is mild left-sided neural foraminal narrowing due to disc bulging. There is mild facet hypertrophy bilaterally. At L5-S1, there is diffuse disc bulging which indents the ventral margin of the thecal sac. No spinal stenosis is seen. There is mild facet hypertrophy. No nerve root impingement is seen. IMPRESSION: Focal disc protrusions are present at L4-5 and L3-4 as above. Mild central canal stenosis is present at L4-5. <Electronically signed by Isidoro Mcintyre > 03/08/21 [id number]
== END ==
LOC: M PLARAD 13:44
PROVIDERS: ATTEND Family Medicine
DX: M51.26 Other intervertebral disc displacement, lumbar region (principal); M48.061 Spinal stenosis, lumbar region without neurogenic claudication

== ENCOUNTER 2021-06-22 15:38 | Emergency (ER) | payer BC ==
[~2021-06-22 15:38] MED LIST changes: +OMEP40CA4 PO; -OMEP40CA97 PO
[2021-06-22] MEDS ORDERED: ACETAMINOPHEN TAB 650MG DOSE (2X325MG) PO ONE (16:55)
[2021-06-22 17:06] LABS: BASO # 0.1 10^3/uL (0.0-0.2); EOS # 0.6 10^3/uL (0.0-0.5); EOS % 5.7 % (0.0-3.0); HEMATOCRIT 38.9 % (42.0-52.0); HEMOGLOBIN 12.8 g/dl (13.5-17.5); LYMPH # 1.4 10^3/uL (1.5-5.0); LYMPH % 12.4 % (24.0-44.0); MEAN CORPUSCULAR HEMOGLOBIN 28.8 pg (27.0-33.0); MEAN CORPUSCULAR HGB CONC 32.9 g/dl (32.0-36.5); MEAN CORPUSCULAR VOLUME 87.4 fl (80.0-96.0); MONO % 8.7 % (2.0-8.0); NEUTROPHILS % 71.8 % (36.0-66.0); PLATELET COUNT, AUTOMATED 241 10^3/uL (150-450); RED BLOOD COUNT 4.45 10^6/uL (4.30-6.10); WHITE BLOOD COUNT 11.1 10^3/uL (4.0-10.0)
[2021-06-22 17:36] LABS: BLOOD UREA NITROGEN 16 MG/DL (7-18); CALCIUM LEVEL 8.3 MG/DL (8.5-10.1); CARBON DIOXIDE LEVEL 24 MEQ/L (21-32); CHLORIDE LEVEL 119 MEQ/L (98-107); CK-MB VALUE MASS < 1.0 NG/ML (<3.6); CPK CREATINE PHOSPHOKINASE 57 U/L (39-308); GLOMERULAR FILTRATION RATE > 60.0 (>56); GLUCOSE, FASTING 92 MG/DL (70-100); MAGNESIUM LEVEL 2.1 MG/DL (1.8-2.4); MB/CK RELATIVE INDEX 1.75 (< OR =4); POTASSIUM SERUM 3.7 MEQ/L (3.5-5.1); SODIUM LEVEL 145 MEQ/L (136-145); THYROID STIMULATING HORMONE 0.391 uIU/ML (0.358-3.740); TROPONIN I < 0.02 NG/ML (< 0.10)
--- NOTE | 2021-06-22 17:57 | REPVR ---
PROCEDURE INFORMATION: Exam: CT Head Without Contrast Exam date and time: 06/22/2021 5:28 PM Age: 51 years old Clinical indication: Pain; Headache; Additional info: Lightheadedness TECHNIQUE: Imaging protocol: Computed tomography of the head without contrast. Radiation optimization: All CT scans at this facility use at least one of these dose optimization techniques: automated exposure control; mA and/or kV adjustment per patient size (includes targeted exams where dose is matched to clinical indication); or iterative reconstruction. COMPARISON: MRI-Brain without Contrast 12/20/2016 9:52 AM FINDINGS: Brain: Unremarkable. No hemorrhage. No significant white matter disease. No edema. Cerebral ventricles: No ventriculomegaly. Paranasal sinuses: Visualized sinuses are unremarkable. No fluid levels. Mastoid air cells: Visualized mastoid air cells are well aerated. Bones/joints: Unremarkable. No acute fracture. Soft tissues: Unremarkable. IMPRESSION: No acute abnormality. Electronically signed by: Vince Calvin On 06/22/2021 17:56:43 PM
--- NOTE | 2021-06-22 18:23 | REP ---
INDICATION: COUGH. COMPARISON: 07/16/2020. TECHNIQUE: Single portable AP view of the chest was performed. FINDINGS: There is no acute infiltrate or pulmonary edema. Lungs are clear. The heart is not significantly enlarged. The mediastinal silhouette is unremarkable. The visualized osseous structures are intact. IMPRESSION: No acute pulmonary disease. <Electronically signed by Guanaco Griggs > 06/22/21 [id number]
[2021-06-22 20:00] VITALS: BP 127/71
[2021-06-22] MEDS ORDERED: ASPIRIN 81 MG CHEW TABLET PO ONE (20:25)
[2021-06-22] MEDS ORDERED: ASPI325T48 PO (20:32)
--- NOTE | 2021-06-22 20:36 | ECGEPIP ---
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
== END 2021-06-22 20:54 | disposition home or self-care (01) ==
LOC: EDBD 15:38 → M ED 15:38
DX: R51.9 Headache, unspecified (principal); I48.91 Unspecified atrial fibrillation; R42 Dizziness and giddiness; J45.909 Unspecified asthma, uncomplicated; E11.9 Type 2 diabetes mellitus without complications; F33.9 Major depressive disorder, recurrent, unspecified; F17.200 Nicotine dependence, unspecified, uncomplicated; Z79.4 Long term (current) use of insulin; Z79.899 Other long term (current) drug therapy; Z91.041 Radiographic dye allergy status; Z88.1 Allergy status to other antibiotic agents; Z88.8 Allergy status to other drugs, medicaments and biological substances; Z82.49 Family history of ischemic heart disease and other diseases of the circulatory system

== ENCOUNTER → 2021-06-23 | Outpatient (CLI) | payer BC ==
[~2021-06-23] MED LIST changes: +ASPI325T48 PO
[2021-06-23 14:27] LABS: BASO # 0.1 10^3/uL (0.0-0.2); BASO % 0.9 % (0.0-1.0); EOS # 0.5 10^3/uL (0.0-0.5); EOS % 6.1 % (0.0-3.0); HEMOGLOBIN 13.2 g/dl (13.5-17.5); LYMPH # 1.5 10^3/uL (1.5-5.0); LYMPH % 16.9 % (24.0-44.0); MEAN CORPUSCULAR HEMOGLOBIN 28.6 pg (27.0-33.0); MEAN CORPUSCULAR HGB CONC 32.2 g/dl (32.0-36.5); MEAN CORPUSCULAR VOLUME 88.7 fl (80.0-96.0); MONO # 0.6 10^3/uL (0.0-0.8); NEUTROPHILS # 6.1 10^3/uL (1.5-8.5); NEUTROPHILS % 68.7 % (36.0-66.0); PLATELET COUNT, AUTOMATED 232 10^3/uL (150-450); RED BLOOD COUNT 4.62 10^6/uL (4.30-6.10); WHITE BLOOD COUNT 8.9 10^3/uL (4.0-10.0)
[2021-06-23 15:37] LABS: ALBUMIN 3.4 GM/DL (3.2-5.2); ALT/SGPT 33 U/L (12-78); BILIRUBIN,TOTAL 0.3 MG/DL (0.2-1.0); BLOOD UREA NITROGEN 15 MG/DL (7-18); CALCIUM LEVEL 8.4 MG/DL (8.5-10.1); CARBON DIOXIDE LEVEL 25 MEQ/L (21-32); CHLORIDE LEVEL 114 MEQ/L (98-107); CREATININE FOR GFR 0.95 MG/DL (0.70-1.30); FERRITIN 504 NG/ML (26-388); GLOMERULAR FILTRATION RATE > 60.0 (>56); GLUCOSE, FASTING 101 MG/DL (70-100); IRON (FE) 55 UG/DL (65-175); PERCENT SATURATION 23.1 % (19.7-50.0); POTASSIUM SERUM 3.8 MEQ/L (3.5-5.1); SODIUM LEVEL 145 MEQ/L (136-145); TOTAL IRON BINDING CAPACITY 238 UG/DL (250-450); TOTAL PROTEIN 6.1 GM/DL (6.4-8.2)
== END ==
LOC: M WUC 12:51
PROVIDERS: ATTEND Physician Assistant
DX: R79.89 Other specified abnormal findings of blood chemistry (principal)

== ENCOUNTER → 2021-11-14 | Outpatient (REF) ==
[~2021-11-14] MED LIST changes: -PHEN15CA PO; +PHEN15CA6 PO
== END ==
LOC: M LABSMTC 12:51
PROVIDERS: ATTEND Pediatrics
DX: Z20.822 Contact with and (suspected) exposure to COVID-19 (principal)

== ENCOUNTER → 2022-01-13 | Outpatient (CLI) | payer BC ==
[~2022-01-13] MED LIST changes: -OMEP-221 OR; +OMEP40CA5 OR
[2022-01-13 16:07] LABS: BASO # 0.1 10^3/uL (0.0-0.2); BASO % 0.9 % (0.0-1.0); EOS # 0.7 10^3/uL (0.0-0.5); EOS % 6.7 % (0.0-3.0); HEMATOCRIT 43.3 % (42.0-52.0); HEMOGLOBIN 14.2 g/dl (13.5-17.5); LYMPH # 2.5 10^3/uL (1.5-5.0); LYMPH % 24.8 % (24.0-44.0); MEAN CORPUSCULAR HGB CONC 32.8 g/dl (32.0-36.5); MEAN CORPUSCULAR VOLUME 88.5 fl (80.0-96.0); MONO # 0.8 10^3/uL (0.0-0.8); MONO % 7.6 % (2.0-8.0); NEUTROPHILS # 5.9 10^3/uL (1.5-8.5); NEUTROPHILS % 59.5 % (36.0-66.0); PLATELET COUNT, AUTOMATED 287 10^3/uL (150-450); RED BLOOD COUNT 4.89 10^6/uL (4.30-6.10)
[2022-01-13 16:27] LABS: ALT/SGPT 35 U/L (12-78); BILIRUBIN,TOTAL 0.2 MG/DL (0.2-1.0); BLOOD UREA NITROGEN 18 MG/DL (7-18); CARBON DIOXIDE LEVEL 30 MEQ/L (21-32); CHLORIDE LEVEL 110 MEQ/L (98-107); CREATININE FOR GFR 1.02 MG/DL (0.70-1.30); FERRITIN 540 NG/ML (26-388); GLOMERULAR FILTRATION RATE > 60.0 (>56); GLUCOSE, FASTING 137 MG/DL (70-100); IRON (FE) 64 UG/DL (65-175); LDH LACTATE DEHYDROGENASE 133 U/L (87-241); PERCENT SATURATION 22.1 % (19.7-50.0); POTASSIUM SERUM 3.7 MEQ/L (3.5-5.1); SODIUM LEVEL 144 MEQ/L (136-145); TOTAL IRON BINDING CAPACITY 289 UG/DL (250-450); TOTAL PROTEIN 6.9 GM/DL (6.4-8.2)
== END ==
LOC: M WUC 13:24
PROVIDERS: ATTEND Physician Assistant
DX: R79.89 Other specified abnormal findings of blood chemistry (principal)

== ENCOUNTER 2022-02-19 10:24 | Emergency (ER) | payer BC ==
[~2022-02-19] VITALS: Ht 170.2 cm; Wt 82.0 kg
[2022-02-19] MEDS ORDERED: LR 1,000 ML IV ONE (12:10)
[2022-02-19] MEDS ORDERED: MORPHINE 4 MG/ML 1ML VIAL/SYRINGE IV ONE (12:55)
[2022-02-19] MEDS ORDERED: ONDANSETRON 4MG/2ML VIAL IV ONE (12:55)
[2022-02-19] MEDS ORDERED: FLOM0.4C39 PO (14:41)
[2022-02-19] MEDS ORDERED: PERC5TAB12 PO (14:54)
[2022-02-19 16:16] LABS: BLOOD UREA NITROGEN 16 MG/DL (7-18); CALCIUM LEVEL 8.2 MG/DL (8.5-10.1); CARBON DIOXIDE LEVEL 24 MEQ/L (21-32); CHLORIDE LEVEL 114 MEQ/L (98-107); CREATININE FOR GFR 1.25 MG/DL (0.70-1.30); GLOMERULAR FILTRATION RATE > 60.0 (>56); GLUCOSE, FASTING 103 MG/DL (70-100); POTASSIUM SERUM 3.9 MEQ/L (3.5-5.1); SODIUM LEVEL 144 MEQ/L (136-145)
[2022-02-19 16:33] VITALS: BP 140/81
[2022-02-19] MEDS ORDERED: NORCO 5/325MG TABLET (BULK FOR ED) PO ONE ×2 (16:50→17:05)
== END 2022-02-19 17:28 | disposition home or self-care (01) ==
LOC: M ED 10:24 → EDBD 10:24 → M ED 17:28
DX: N20.0 Calculus of kidney (principal); I25.10 Atherosclerotic heart disease of native coronary artery without angina pectoris; E11.9 Type 2 diabetes mellitus without complications; I10 Essential (primary) hypertension; Z87.442 Personal history of urinary calculi; Z98.84 Bariatric surgery status; Z79.82 Long term (current) use of aspirin; Z79.4 Long term (current) use of insulin; Z79.899 Other long term (current) drug therapy; Z91.041 Radiographic dye allergy status; Z88.1 Allergy status to other antibiotic agents; Z88.8 Allergy status to other drugs, medicaments and biological substances
CPT/HCPCS: 36415; 74176; 80047; 80048; 81001; 96361; 96374; 96375; 99284; J2270; J2405

== ENCOUNTER 2022-02-21 09:21 | Emergency (ER) | payer BC ==
[~2022-02-21] VITALS: Ht 170.2 cm; Wt 81.8 kg
[~2022-02-21 09:21] MED LIST changes: +FLOM0.4C39 PO; +PERC5TAB12 PO
[2022-02-21] MEDS ORDERED: TAMS1CAP17 (09:40)
[2022-02-21] MEDS ORDERED: OXYC1TAB23 (09:40)
[2022-02-21 09:45] VITALS: BP 137/68
[2022-02-21] MEDS ORDERED: NS 1,000 ML IV ONE ×2 (09:45→11:00)
[2022-02-21 10:20] LABS: BASO % 0.3 % (0.0-1.0); EOS # 0.1 10^3/uL (0.0-0.5); EOS % 0.3 % (0.0-3.0); HEMATOCRIT 38.1 % (42.0-52.0); HEMOGLOBIN 12.9 g/dl (13.5-17.5); LYMPH # 0.8 10^3/uL (1.5-5.0); LYMPH % 5.2 % (24.0-44.0); MEAN CORPUSCULAR HEMOGLOBIN 28.7 pg (27.0-33.0); MEAN CORPUSCULAR HGB CONC 33.9 g/dl (32.0-36.5); MEAN CORPUSCULAR VOLUME 84.7 fl (80.0-96.0); MONO # 1.4 10^3/uL (0.0-0.8); MONO % 9.6 % (2.0-8.0); NEUTROPHILS # 12.5 10^3/uL (1.5-8.5); NEUTROPHILS % 83.9 % (36.0-66.0); PLATELET COUNT, AUTOMATED 203 10^3/uL (150-450); WHITE BLOOD COUNT 14.9 10^3/uL (4.0-10.0)
[2022-02-21 10:50] LABS: ALBUMIN 3.4 GM/DL (3.2-5.2); ALT/SGPT 21 U/L (12-78); BILIRUBIN,DIRECT < 0.1 MG/DL (0.0-0.2); BILIRUBIN,TOTAL 0.8 MG/DL (0.2-1.0); BLOOD UREA NITROGEN 17 MG/DL (7-18); CALCIUM LEVEL 8.6 MG/DL (8.5-10.1); CARBON DIOXIDE LEVEL 22 MEQ/L (21-32); CHLORIDE LEVEL 112 MEQ/L (98-107); CREATININE FOR GFR 1.44 MG/DL (0.70-1.30); GLOMERULAR FILTRATION RATE 54.6 (>56); GLUCOSE, FASTING 130 MG/DL (70-100); LIPASE 39 U/L (73-393); SODIUM LEVEL 140 MEQ/L (136-145)
[2022-02-21] MEDS ORDERED: SENO8.6T10 PO (13:34)
[2022-02-21] MEDS ORDERED: MIRA3350 PO (13:34)
== END 2022-02-21 14:31 | disposition home or self-care (01) ==
LOC: M ED 09:21 → EDBD 09:21 → M ED 14:31
DX: N20.2 Calculus of kidney with calculus of ureter (principal); K57.30 Diverticulosis of large intestine without perforation or abscess without bleeding; E11.9 Type 2 diabetes mellitus without complications; I10 Essential (primary) hypertension; Z87.442 Personal history of urinary calculi; Z98.84 Bariatric surgery status; Z79.4 Long term (current) use of insulin; Z79.82 Long term (current) use of aspirin; Z79.899 Other long term (current) drug therapy; Z91.041 Radiographic dye allergy status; Z88.1 Allergy status to other antibiotic agents; Z88.8 Allergy status to other drugs, medicaments and biological substances

== ENCOUNTER → 2022-03-18 | Outpatient (CLI) | payer BC ==
[~2022-03-18] MED LIST changes: +OXYC1TAB23; +SENO8.6T10 PO; +TAMS1CAP17
== END ==
LOC: M LABSMTC 11:04
PROVIDERS: ATTEND Anesthesiology
DX: Z01.812 Encounter for preprocedural laboratory examination (principal); Z20.822 Contact with and (suspected) exposure to COVID-19

== ENCOUNTER → 2022-03-21 | Outpatient (REF) | payer BC | LOC: M SFHCLERA 11:33 | PROVIDERS: ATTEND Family Medicine | DX: R52 Pain, unspecified (principal) ==

== ENCOUNTER → 2022-03-31 | Outpatient (CLI) | payer BC ==
[~2022-03-31] MED LIST changes: +DULO1CAP5 PO; +TOPI100T9 PO
[2022-03-31 12:25] LABS: BASO # 0.1 10^3/uL (0.0-0.2); BASO % 0.8 % (0.0-1.0); EOS # 0.5 10^3/uL (0.0-0.5); EOS % 5.7 % (0.0-3.0); HEMATOCRIT 40.1 % (42.0-52.0); HEMOGLOBIN 13.1 g/dl (13.5-17.5); LYMPH # 1.5 10^3/uL (1.5-5.0); LYMPH % 17.5 % (24.0-44.0); MEAN CORPUSCULAR HEMOGLOBIN 28.9 pg (27.0-33.0); MEAN CORPUSCULAR HGB CONC 32.7 g/dl (32.0-36.5); MEAN CORPUSCULAR VOLUME 88.5 fl (80.0-96.0); MONO # 0.7 10^3/uL (0.0-0.8); NEUTROPHILS # 5.7 10^3/uL (1.5-8.5); NEUTROPHILS % 67.5 % (36.0-66.0); PLATELET COUNT, AUTOMATED 234 10^3/uL (150-450); RED BLOOD COUNT 4.53 10^6/uL (4.30-6.10); WHITE BLOOD COUNT 8.4 10^3/uL (4.0-10.0)
[2022-03-31 12:27] LABS: AMORPHOUS SEDIMENT SMALL (NEGATIVE); APPEARANCE, URINE HAZY (CLEAR); BACTERIA, URINE AUTO NEGATIVE (NEGATIVE); BILIRUBIN, URINE AUTO NEGATIVE (NEGATIVE); BLOOD, URINE BLOOD NEGATIVE (NEGATIVE); COLOR, URINE YELLOW (YELLOW); GLUCOSE, URINE (UA) AUTO NEGATIVE (NEGATIVE); KETONE, URINE AUTO NEGATIVE (NEGATIVE); LEUKOCYTE ESTERASE, URINE AUTO NEGATIVE (NEGATIVE); MUCUS, URINE SMALL (NEGATIVE); NITRITE, URINE AUTO NEGATIVE (NEGATIVE); PROTEIN, URINE AUTO NEGATIVE (NEGATIVE); RBC, URINE AUTO 1 /HPF (0-3); SPECIFIC GRAVITY URINE AUTO 1.016 (1.002-1.035); SQUAMOUS EPITHELIAL CELL UR AU 0 /HPF (0-6); UROBILINOGEN, URINE AUTO 0.2 mg/dL (0.0-2.0); WBC, URINE AUTO 1 /HPF (0-3)
[2022-03-31 12:49] LABS: BLOOD UREA NITROGEN 18 MG/DL (7-18); CALCIUM LEVEL 8.9 MG/DL (8.5-10.1); CARBON DIOXIDE LEVEL 27 MEQ/L (21-32); CHLORIDE LEVEL 112 MEQ/L (98-107); CREATININE FOR GFR 1.09 MG/DL (0.70-1.30); GLOMERULAR FILTRATION RATE > 60.0 (>56); GLUCOSE, FASTING 102 MG/DL (70-100); SODIUM LEVEL 142 MEQ/L (136-145)
[2022-03-31 12:59] LABS: PTH INTACT 38.8 PG/ML (18.5-88.0)
== END ==
LOC: M RAD 11:21
PROVIDERS: ATTEND Physician Assistant
DX: N20.0 Calculus of kidney (principal); I49.1 Atrial premature depolarization

== ENCOUNTER → 2022-04-04 | Outpatient (CLI) | payer BC ==
[~2022-04-04] MED LIST changes: -GLUCTAB6 PO; +GLUCTAB7 PO
== END ==
LOC: M LABSMTC 09:24
PROVIDERS: ATTEND Anesthesiology
DX: Z01.812 Encounter for preprocedural laboratory examination (principal); Z20.822 Contact with and (suspected) exposure to COVID-19

== ENCOUNTER → 2022-04-24 | Outpatient (CLI) | payer BC | LOC: M WUC 13:06 | PROVIDERS: ATTEND Urology | DX: N20.0 Calculus of kidney (principal); K59.00 Constipation, unspecified ==

== ENCOUNTER → 2022-04-27 | Outpatient (REF) | payer BC ==
[2022-05-02 21:07] LABS: CA Oxalate Dihy 20 % (.); Ca Ox Monohydrate 80 % (.)
== END ==
LOC: M SMT 12:49
PROVIDERS: ATTEND Physician Assistant
DX: N20.0 Calculus of kidney (principal)

== ENCOUNTER → 2022-08-03 | Outpatient (CLI) | payer BC ==
[2022-08-03 11:26] LABS: BASO # 0.1 10^3/uL (0.0-0.2); BASO % 0.7 % (0.0-1.0); EOS # 0.7 10^3/uL (0.0-0.5); HEMATOCRIT 42.2 % (42.0-52.0); HEMOGLOBIN 13.8 g/dl (13.5-17.5); LYMPH # 1.6 10^3/uL (1.5-5.0); LYMPH % 13.9 % (24.0-44.0); MEAN CORPUSCULAR HGB CONC 32.7 g/dl (32.0-36.5); MEAN CORPUSCULAR VOLUME 88.7 fl (80.0-96.0); MONO # 0.9 10^3/uL (0.0-0.8); MONO % 7.4 % (2.0-8.0); NEUTROPHILS # 8.5 10^3/uL (1.5-8.5); NEUTROPHILS % 71.4 % (36.0-66.0); PLATELET COUNT, AUTOMATED 273 10^3/uL (150-450); RED BLOOD COUNT 4.76 10^6/uL (4.30-6.10); WHITE BLOOD COUNT 11.8 10^3/uL (4.0-10.0)
[2022-08-03 12:22] LABS: ALBUMIN 3.8 GM/DL (3.2-5.2); ALT/SGPT 32 U/L (12-78); BILIRUBIN,TOTAL 0.3 MG/DL (0.2-1.0); BLOOD UREA NITROGEN 14 MG/DL (7-18); CALCIUM LEVEL 9.5 MG/DL (8.5-10.1); CARBON DIOXIDE LEVEL 28 MEQ/L (21-32); CHLORIDE LEVEL 109 MEQ/L (98-107); CREATININE FOR GFR 1.05 MG/DL (0.70-1.30); FERRITIN 368 NG/ML (26-388); GLOMERULAR FILTRATION RATE > 60.0 (>56); GLUCOSE, FASTING 101 MG/DL (70-100); IRON (FE) 85 UG/DL (65-175); PERCENT SATURATION 30.2 % (19.7-50.0); POTASSIUM SERUM 4.3 MEQ/L (3.5-5.1); SODIUM LEVEL 140 MEQ/L (136-145); TOTAL IRON BINDING CAPACITY 281 UG/DL (250-450); TOTAL PROTEIN 6.7 GM/DL (6.4-8.2)
== END ==
LOC: M WUC 08:21
PROVIDERS: ATTEND Physician Assistant
DX: R79.89 Other specified abnormal findings of blood chemistry (principal)

== ENCOUNTER → 2022-08-12 | Outpatient (CLI) | payer BC | LOC: M RAD 10:27 | PROVIDERS: ATTEND Orthopaedic Surgery | DX: M25.512 Pain in left shoulder (principal); M19.012 Primary osteoarthritis, left shoulder; M25.712 Osteophyte, left shoulder; M75.92 Shoulder lesion, unspecified, left shoulder; S43.432D Superior glenoid labrum lesion of left shoulder, subsequent encounter ==

== ENCOUNTER → 2022-10-24 | Outpatient (CLI) | payer BC ==
[2022-10-24 17:19] LABS: BASO # 0.1 10^3/uL (0.0-0.2); BASO % 0.9 % (0.0-1.0); EOS # 0.6 10^3/uL (0.0-0.5); EOS % 5.6 % (0.0-3.0); HEMATOCRIT 44.2 % (42.0-52.0); HEMOGLOBIN 14.2 g/dl (13.5-17.5); LYMPH # 2.1 10^3/uL (1.5-5.0); LYMPH % 19.6 % (24.0-44.0); MEAN CORPUSCULAR HEMOGLOBIN 28.5 pg (27.0-33.0); MEAN CORPUSCULAR HGB CONC 32.1 g/dl (32.0-36.5); MEAN CORPUSCULAR VOLUME 88.8 fl (80.0-96.0); MONO # 0.8 10^3/uL (0.0-0.8); MONO % 7.9 % (2.0-8.0); NEUTROPHILS # 6.9 10^3/uL (1.5-8.5); NEUTROPHILS % 65.5 % (36.0-66.0); PLATELET COUNT, AUTOMATED 279 10^3/uL (150-450); RED BLOOD COUNT 4.98 10^6/uL (4.30-6.10); WHITE BLOOD COUNT 10.6 10^3/uL (4.0-10.0)
[2022-10-24 17:22] LABS: INR 0.98; PROTHROMBIN TIME 13.2 SECONDS (12.5-14.5)
[2022-10-24 17:27] LABS: BLOOD UREA NITROGEN 21 MG/DL (9-23); CALCIUM LEVEL 8.9 MG/DL (8.5-10.1); CARBON DIOXIDE LEVEL 26 MMOL/L (20-31); CHLORIDE LEVEL 108 MMOL/L (98-107); CREATININE FOR GFR 1.04 MG/DL (0.70-1.30); GLOMERULAR FILTRATION RATE > 60.0 (>56); GLUCOSE, FASTING 91 MG/DL (60-100); POTASSIUM SERUM 3.9 MMOL/L (3.5-5.1); SODIUM LEVEL 143 MMOL/L (136-145)
[2022-10-24 17:28] LABS: MALB URINE SIEMENS < 3.0 MG/DL; MAU/CREAT RATIO 2.2 MCG/MG (0.0-30.0)
[2022-10-24 19:49] LABS: APPEARANCE, URINE MANUAL CLEAR (CLEAR); COLOR, URINE MANUAL YELLOW (YELLOW)
[2022-10-24 19:51] LABS: BILIRUBIN, URINE MANUAL NEGATIVE (NEGATIVE); BLOOD URINE MANUAL NEGATIVE (NEGATIVE); GLUCOSE, URINE (UA) MANUAL NEGATIVE (NEGATIVE); KETONE, URINE MANUAL NEGATIVE (NEGATIVE); LEUKOCYTE ESTERASE, URINE MAN NEGATIVE (NEGATIVE); NITRITE, URINE MANUAL NEGATIVE (NEGATIVE); PH,URINE MAN 6.5 UNITS (5.0 - 7.0); PROTEIN, URINE MANUAL NEGATIVE (NEGATIVE); SPECIFIC GRAVITY,URINE MANUAL 1.015 (1.002-1.035); UROBILINOGEN, URINE MANUAL NORMAL (NORMAL)
== END ==
LOC: M WUC 11:20
PROVIDERS: ATTEND Family Medicine
DX: Z01.818 Encounter for other preprocedural examination (principal); E11.9 Type 2 diabetes mellitus without complications

== ENCOUNTER → 2022-10-25 | Outpatient (REF) | payer BC | LOC: M LAB REF 11:49 | PROVIDERS: ATTEND Family Medicine | DX: Z01.818 Encounter for other preprocedural examination (principal) ==

== ENCOUNTER → 2022-12-06 | Outpatient (CLI) | payer BC | LOC: M WUC 09:00 | PROVIDERS: ATTEND Physician Assistant | DX: Z87.442 Personal history of urinary calculi (principal); N20.0 Calculus of kidney ==

== ENCOUNTER → 2023-04-20 | Outpatient (CLI) | payer BC ==
[2023-04-20 10:01] LABS: BASO # 0.1 10^3/uL (0.0-0.2); BASO % 0.7 % (0.0-1.0); EOS # 0.7 10^3/uL (0.0-0.5); EOS % 6.2 % (0.0-3.0); HEMATOCRIT 42.9 % (42.0-52.0); HEMOGLOBIN 13.9 g/dl (13.5-17.5); LYMPH # 2.3 10^3/uL (1.5-5.0); LYMPH % 20.5 % (24.0-44.0); MEAN CORPUSCULAR HEMOGLOBIN 27.9 pg (27.0-33.0); MEAN CORPUSCULAR HGB CONC 32.4 g/dl (32.0-36.5); MEAN CORPUSCULAR VOLUME 86.1 fl (80.0-96.0); MONO % 8.9 % (2.0-8.0); NEUTROPHILS % 62.7 % (36.0-66.0); PLATELET COUNT, AUTOMATED 260 10^3/uL (150-450); RED BLOOD COUNT 4.98 10^6/uL (4.30-6.10); WHITE BLOOD COUNT 11.1 10^3/uL (4.0-10.0)
[2023-04-20 10:18] LABS: HEMOGLOBIN A1c 6.6 % (4.0-6.0)
[2023-04-20 10:26] LABS: IRON (FE) 66 UG/DL (65-175)
[2023-04-20 10:27] LABS: ALBUMIN 3.6 G/DL (3.2-5.2); ALKALINE PHOSPHATASE 93 U/L (46-116); ALT/SGPT 24 U/L (7.0-40); AST/SGOT 10 U/L (<34); BILIRUBIN,TOTAL 0.3 MG/DL (0.3-1.2); BLOOD UREA NITROGEN 14 MG/DL (9-23); CALCIUM LEVEL 9.8 MG/DL (8.5-10.1); CARBON DIOXIDE LEVEL 30 MMOL/L (20-31); CHLORIDE LEVEL 103 MMOL/L (98-107); CREATININE FOR GFR 0.95 MG/DL (0.70-1.30); GLOMERULAR FILTRATION RATE > 60.0 (>56); GLUCOSE, FASTING 85 MG/DL (60-100); PERCENT SATURATION 22.1 % (19.7-50.0); POTASSIUM SERUM 4.1 MMOL/L (3.5-5.1); SODIUM LEVEL 141 MMOL/L (136-145); TOTAL IRON BINDING CAPACITY 299 UG/DL (250-425); TOTAL PROTEIN 6.3 G/DL (5.7-8.2)
[2023-04-20 10:30] LABS: ERYTHROCYTE SEDIMENTATION RATE 10 mm/hr (0-20)
[2023-04-20 10:35] LABS: FERRITIN 198.9 NG/ML (10.5-307.3)
[2023-04-20 10:36] LABS: FOLATE 21.84 NG/ML (>5.4); FREE T4 0.94 NG/DL (0.89-1.76)
[2023-04-20 10:37] LABS: THYROID STIMULATING HORMONE 0.993 uIU/ML (0.55-4.78)
[2023-04-20 10:38] LABS: TOTAL 25(OH) VITAMIN D 33.5 NG/ML (20.0-100.0)
[2023-04-20 11:12] LABS: VITAMIN B12 LEVEL 660 PG/ML (211-911)
== END ==
LOC: M WUC 08:40
PROVIDERS: ATTEND Family Medicine
DX: Z98.84 Bariatric surgery status (principal); E11.69 Type 2 diabetes mellitus with other specified complication; R53.83 Other fatigue; E83.119 Hemochromatosis, unspecified

== ENCOUNTER 2023-07-06 06:41 | Day surgery (SDC) | payer BC ==
[~2023-07-06] VITALS: Ht 170.2 cm; Wt 104.5 kg
[~2023-07-06 06:41] MED LIST changes: +CLON-952 PO; -KLON2TAB PO; +NS 1,000 ML IV ONE; +OMEP-173 PO
[2023-07-06] MEDS ORDERED: LIDOCAINE 2% 100MG/5ML SDV (FOR ANES.) As Ordered ONE (07:51)
[2023-07-06] MEDS ORDERED: propofoL 200 MG/20 ML VIAL As Ordered ONE ×2 (07:51→07:59)
[2023-07-06 08:17] VITALS: TEMP 98.4
[2023-07-06 08:52] VITALS: BP 111/70; O2SAT 99
== END 2023-07-06 09:35 | disposition home or self-care (01) ==
LOC: M OPP 06:41
PROVIDERS: ATTEND Internal Medicine Gastroenterology
DX: Z12.11 Encounter for screening for malignant neoplasm of colon (principal); K63.5 Polyp of colon; K57.30 Diverticulosis of large intestine without perforation or abscess without bleeding; K64.4 Residual hemorrhoidal skin tags; K64.8 Other hemorrhoids; Z98.84 Bariatric surgery status; I48.91 Unspecified atrial fibrillation; E11.9 Type 2 diabetes mellitus without complications; G47.33 Obstructive sleep apnea (adult) (pediatric); Z99.89 Dependence on other enabling machines and devices; Z79.51 Long term (current) use of inhaled steroids; Z79.4 Long term (current) use of insulin; Z79.891 Long term (current) use of opiate analgesic; Z79.899 Other long term (current) drug therapy; Z88.2 Allergy status to sulfonamides; Z88.8 Allergy status to other drugs, medicaments and biological substances; Z91.041 Radiographic dye allergy status

== ENCOUNTER 2023-08-21 14:41 | Emergency (ER) | payer BC ==
[~2023-08-21] VITALS: Ht 170.2 cm; Wt 105.1 kg
[~2023-08-21 14:41] MED LIST changes: -NS 1,000 ML IV ONE
[2023-08-21] MEDS ORDERED: MORPHINE 4 MG/ML 1ML VIAL IV PRN (14:45)
[2023-08-21] MEDS ORDERED: HYDROMORPHONE HCL 0.5 MG/ 0.5 ML SYRINGE IV ONE ×2 (15:10→15:40)
[2023-08-21 15:20] LABS: BASO # 0.1 10^3/uL (0.0-0.2); BASO % 0.7 % (0.0-1.0); EOS # 0.6 10^3/uL (0.0-0.5); HEMATOCRIT 43.4 % (42.0-52.0); HEMOGLOBIN 14.6 g/dl (13.5-17.5); LYMPH # 1.8 10^3/uL (1.5-5.0); LYMPH % 15.2 % (24.0-44.0); MEAN CORPUSCULAR HEMOGLOBIN 28.6 pg (27.0-33.0); MEAN CORPUSCULAR HGB CONC 33.6 g/dl (32.0-36.5); MEAN CORPUSCULAR VOLUME 84.9 fl (80.0-96.0); MONO % 8.2 % (2.0-8.0); NEUTROPHILS # 8.5 10^3/uL (1.5-8.5); NEUTROPHILS % 70.2 % (36.0-66.0); PLATELET COUNT, AUTOMATED 285 10^3/uL (150-450); RED BLOOD COUNT 5.11 10^6/uL (4.30-6.10); WHITE BLOOD COUNT 12.1 10^3/uL (4.0-10.0)
[2023-08-21 15:32] LABS: INR 0.94; PROTHROMBIN TIME 12.3 SECONDS (12.5-14.5)
[2023-08-21 15:33] LABS: PARTIAL THROMBOPLASTIN TIME 29.9 SECONDS (24.8-34.2)
[2023-08-21 15:54] LABS: LIPASE 35 U/L (12-53)
[2023-08-21 15:56] LABS: ALBUMIN 3.9 G/DL (3.2-5.2); ALKALINE PHOSPHATASE 101 U/L (46-116); ALT/SGPT 26 U/L (7.0-40); AST/SGOT 17 U/L (<34); BILIRUBIN,DIRECT < 0.1 MG/DL (<0.4); BILIRUBIN,TOTAL 0.2 MG/DL (0.3-1.2); CPK CREATINE PHOSPHOKINASE 101 U/L (46-171); MB/CK RELATIVE INDEX 0.99 (< OR =4); TOTAL PROTEIN 6.9 G/DL (5.7-8.2)
[2023-08-21] MEDS ORDERED: MAALOX 30 ML SUSP *UDC PO ONE (17:15)
[2023-08-21] MEDS ORDERED: SUCRALFATE SUSP 1GM/10ML UD PO ONE (17:15)
[2023-08-21] MEDS ORDERED: ONDANSETRON 4MG 2ML VIAL IV ONE (17:15)
[2023-08-21 17:41] LABS: CK-MB VALUE MASS < 1.0 NG/ML (<3.6)
[2023-08-21 17:42] LABS: CPK CREATINE PHOSPHOKINASE 97 U/L (46-171); MB/CK RELATIVE INDEX 1.03 (< OR =4)
[2023-08-21] MEDS ORDERED: NS 1,000 ML IV ONE (18:05)
[2023-08-21] MEDS: HYDROMORPHONE HCL 0.5 MG/ 0.5 ML SYRINGE IV PRN ×2 (18:35→20:42)
[2023-08-21 20:48] LABS: ALBUMIN 3.3 G/DL (3.2-5.2); ALKALINE PHOSPHATASE 118 U/L (46-116); ALT/SGPT 166 U/L (7.0-40); AST/SGOT 243 U/L (<34); BILIRUBIN,TOTAL 0.6 MG/DL (0.3-1.2); BLOOD UREA NITROGEN 12 MG/DL (9-23); CALCIUM LEVEL 8.2 MG/DL (8.5-10.1); CARBON DIOXIDE LEVEL 28 MMOL/L (20-31); CHLORIDE LEVEL 107 MMOL/L (98-107); GLOMERULAR FILTRATION RATE > 60.0 (>56); GLUCOSE, FASTING 170 MG/DL (60-100); POTASSIUM SERUM 3.7 MMOL/L (3.5-5.1); SODIUM LEVEL 143 MMOL/L (136-145); TOTAL PROTEIN 6.1 G/DL (5.7-8.2)
[2023-08-21 21:11] VITALS: BP 131/67; TEMP 97.6; O2SAT 98
[2023-08-21] MEDS ORDERED: OXYCODONE/APAP 5MG/325MG(HOME DOSE PACK) PO ONE (21:15)
[2023-08-21] MEDS ORDERED: ONDANSETRON 4MG ORAL DISINTEGRATING TAB PO ONE (21:15)
[2023-08-21] MEDS ORDERED: OXYC-517 PO (21:29)
[2023-08-21] MEDS ORDERED: ONDA4TAB6 PO (21:29)
[2023-08-21 21:31] LABS: RSV AMPLIFICATION NEGATIVE (NEGATIVE)
== END 2023-08-21 21:44 | disposition left against medical advice (07) ==
LOC: M ED 14:41
DX: K80.66 Calculus of gallbladder and bile duct with acute and chronic cholecystitis without obstruction (principal); E11.9 Type 2 diabetes mellitus without complications; E78.5 Hyperlipidemia, unspecified; F41.9 Anxiety disorder, unspecified; Z98.84 Bariatric surgery status; Z86.79 Personal history of other diseases of the circulatory system; Z88.1 Allergy status to other antibiotic agents; Z88.8 Allergy status to other drugs, medicaments and biological substances; Z91.041 Radiographic dye allergy status; Z79.810 Long term (current) use of selective estrogen receptor modulators (SERMs); Z79.83 Long term (current) use of bisphosphonates; Z79.899 Other long term (current) drug therapy; Z53.9 Procedure and treatment not carried out, unspecified reason
CPT/HCPCS: 71045; 74176; 76705; 80047; 80053; 80076; 82550; 82553; 83605; 83690; 84484; 85025; 85610; 85730; 87631; 93005; 93041; 94760; 96361; 96374; 96375; 96376; 99285; J1170; J2405

== ENCOUNTER → 2024-07-23 | Outpatient (CLI) | payer BC ==
[~2024-07-23] MED LIST changes: +ONDA-282 PO; +OXYC-517 PO
[2024-07-23 08:34] LABS: BASO # 0.1 10^3/uL (0.0-0.2); EOS # 0.6 10^3/uL (0.0-0.5); EOS % 5.3 % (0.0-3.0); HEMATOCRIT 41.5 % (42.0-52.0); HEMOGLOBIN 13.4 g/dl (13.5-17.5); LYMPH # 2.4 10^3/uL (1.5-5.0); LYMPH % 21.7 % (24.0-44.0); MEAN CORPUSCULAR HEMOGLOBIN 28.2 pg (27.0-33.0); MEAN CORPUSCULAR HGB CONC 32.3 g/dl (32.0-36.5); MEAN CORPUSCULAR VOLUME 87.4 fl (80.0-96.0); MONO # 1.1 10^3/uL (0.0-0.8); MONO % 9.5 % (2.0-8.0); NEUTROPHILS # 6.9 10^3/uL (1.5-8.5); NEUTROPHILS % 61.6 % (36.0-66.0); PLATELET COUNT, AUTOMATED 276 10^3/uL (150-450); RED BLOOD COUNT 4.75 10^6/uL (4.30-6.10); WHITE BLOOD COUNT 11.1 10^3/uL (4.0-10.0)
[2024-07-23 08:46] LABS: HEMOGLOBIN A1c 7.1 % (4.0-6.0)
[2024-07-23 09:06] LABS: ALBUMIN 3.6 G/DL (3.2-5.2); ALKALINE PHOSPHATASE 121 U/L (46-116); ALT/SGPT 51 U/L (7.0-40); AST/SGOT 12 U/L (<34); BILIRUBIN,TOTAL 0.2 MG/DL (0.3-1.2); BLOOD UREA NITROGEN 19 MG/DL (9-23); CALCIUM LEVEL 9.1 MG/DL (8.5-10.1); CARBON DIOXIDE LEVEL 32 MMOL/L (20-31); CHLORIDE LEVEL 106 MMOL/L (98-107); CREATININE FOR GFR 0.96 MG/DL (0.70-1.30); GLOMERULAR FILTRATION RATE > 60.0 (>56); GLUCOSE, FASTING 117 MG/DL (60-100); IRON (FE) 44 UG/DL (65-175); POTASSIUM SERUM 4.2 MMOL/L (3.5-5.1); SODIUM LEVEL 140 MMOL/L (136-145); TOTAL PROTEIN 6.4 G/DL (5.7-8.2)
[2024-07-23 09:07] LABS: PERCENT SATURATION 13.3 % (19.7-50.0); TOTAL IRON BINDING CAPACITY 331 UG/DL (250-425)
[2024-07-23 09:09] LABS: FERRITIN 129.1 NG/ML (10.5-307.3)
[2024-07-23 11:18] LABS: MALB URINE SIEMENS < 3.0 MG/L; MAU/CREAT RATIO 2.8 MCG/MG (0.0-30.0)
== END ==
LOC: M LAB 07:43
PROVIDERS: ATTEND Family Medicine
DX: R51.9 Headache, unspecified (principal); R03.0 Elevated blood-pressure reading, without diagnosis of hypertension; E11.69 Type 2 diabetes mellitus with other specified complication

== ENCOUNTER → 2024-11-24 | Outpatient (CLI) | payer BC ==
[~2024-11-24] MED LIST changes: -TADA5TAB PO; +TADA5TAB94 PO
== END ==
LOC: M WUC 14:28
PROVIDERS: ATTEND Physician Assistant
DX: Z12.5 Encounter for screening for malignant neoplasm of prostate (principal); N20.0 Calculus of kidney

== ENCOUNTER → 2025-05-18 | Outpatient (REF) | payer BC ==
[~2025-05-18] MED LIST changes: -ALPH600C PO; +ALPH600C2 PO; -FLOM0.4C39 PO; +TADA5TAB2 PO; -TADA5TAB94 PO; +TAMS-18 PO; +TOPI-257 PO; -TOPI100T9 PO
== END ==
LOC: M SFHCLERA 11:27
DX: R19.7 Diarrhea, unspecified (principal)

== ENCOUNTER 2025-08-06 08:27 | Emergency (ER) | payer BC ==
[~2025-08-06] VITALS: Ht 170.2 cm; Wt 110.2 kg
[~2025-08-06 08:27] MED LIST changes: +SENN-225 PO; -SENO8.6T5 PO
[2025-08-06] MEDS ORDERED: OMEP40CA5 (08:45)
[2025-08-06 09:15] LABS: BASO # 0.1 10^3/uL (0.0-0.2); BASO % 0.7 % (0.0-1.0); EOS # 0.5 10^3/uL (0.0-0.5); EOS % 5.6 % (0.0-3.0); LYMPH # 1.2 10^3/uL (1.5-5.0); LYMPH % 14.3 % (24.0-44.0); MONO # 0.7 10^3/uL (0.0-0.8); MONO % 8.2 % (2.0-8.0); NEUTROPHILS # 5.9 10^3/uL (1.5-8.5); NEUTROPHILS % 70.6 % (36.0-66.0); PLATELET COUNT, AUTOMATED 231 10^3/uL (150-450)
[2025-08-06 09:30] LABS: ALT/SGPT 28 U/L (7.0-40); AST/SGOT 19 U/L (<34); CALCIUM LEVEL 8.4 MG/DL (8.5-10.1); CARBON DIOXIDE LEVEL 24 MMOL/L (20-31); CHLORIDE LEVEL 108 MMOL/L (98-107); CREATININE FOR GFR 0.87 MG/DL (0.70-1.30); GLOMERULAR FILTRATION RATE > 90.0 (>56); POTASSIUM SERUM 4.2 MMOL/L (3.5-5.1); SODIUM LEVEL 139 MMOL/L (136-145)
[2025-08-06] MEDS: NS (Normal Saline) 0.9% 1,000 ML IV ONE (10:53)
[2025-08-06 14:53] VITALS: BP 117/65; TEMP 98.2; O2SAT 95
== END 2025-08-06 14:58 | disposition home or self-care (01) ==
LOC: M ED 08:27 → EDBD 08:27 → M ED 14:58
DX: E86.0 Dehydration (principal); R19.7 Diarrhea, unspecified; R55 Syncope and collapse; I49.1 Atrial premature depolarization; E11.9 Type 2 diabetes mellitus without complications; J45.909 Unspecified asthma, uncomplicated; G47.30 Sleep apnea, unspecified; E78.5 Hyperlipidemia, unspecified; G89.4 Chronic pain syndrome; F17.200 Nicotine dependence, unspecified, uncomplicated; Z91.041 Radiographic dye allergy status; Z88.1 Allergy status to other antibiotic agents; Z88.8 Allergy status to other drugs, medicaments and biological substances; Z79.899 Other long term (current) drug therapy; Z79.4 Long term (current) use of insulin